=== PATIENT | male | born 1970 | race Hispanic/Latino ===

== ENCOUNTER 2017-05-23 13:27 | Inpatient (IN) | payer OTHER ==
[~2017-05-23] VITALS: Ht 167.6 cm; Wt 89.8 kg
[2017-05-23] MEDS: INSULIN REGULAR, HUMAN 100 UNIT/1 ML 3ML VIAL SQ SCH ×2 (12:30→21:00)
[~2017-05-23 13:27] MED LIST: ASPIR 8181 MG PO; ATORVASTATIN CA20 MG PO; CALCITRIOL0.25 MCG PO; CARTIA XT120 MG PO; FUROSEMIDE40 MG PO; GABAPENTIN300 MG PO; HUMALOG100 UNIT/3 SC; LEVEMIR100 UNIT/1 SC; LISINOPRIL10 MG PO; METOPROLOL TART25 MG PO; NIFEDIPINE ER30 M1 PO; NOVOLOG100 UNITS/ SC; PANTOPRAZOLE SO40 MG PO; PROMETHAZINE HC25 M1 PO; REGLAN10 MG PO; RENVELA0.8 GM PO
--- NOTE | 2017-05-23 14:37 | Diagnostic Imaging Report ---
EXAMINATION: Chest, CHEST 2 VIEWS INDICATION: Cough. Fever. COMPARISON: Chest 2 views 05/02/2017 FINDINGS: LINES: None. Heart: Normal cardiac silhouette. Vascular: The pulmonary vasculature is within normal limits. Atherosclerotic calcifications of the aortic arch. Mediastinum: No mediastinal, hilar, or axillary mass or lymphadenopathy. Lungs: No parenchymal mass. Airspace opacities in the left upper and lower lobes. Pleura: Small left pleural effusion. No pneumothorax. Bones: No acute osseous abnormality. Degenerative changes of the thoracic spine. Median sternotomy wires. Soft tissues: Normal. Impression: Left upper and lower lobe airspace opacifications consistent with pneumonia. Signed by: Dr. Fermin Zuñiga M.D. on 05/23/2017 2:33 PM
[2017-05-23] MEDS ORDERED: AZITHROMYCIN 500MG/NS 250 ML 250 ML IV STA (14:57)
[2017-05-23] MEDS ORDERED: CEFTRIAXONE SOD 1 GM VIAL IV ONE (15:00)
[2017-05-23] MEDS ORDERED: ONDANSETRON HCL INJ 2 MG/ML VIAL IV STA (15:33)
[2017-05-23 15:39] LABS: BASOPHILS # (AUTO) 0.1 (0.0-0.1); BASOPHILS % 0.8 % (0.0-1.0); EOSINOPHILS # (AUTO) 0.2 (0.0-0.4); EOSINOPHILS % 1.7 % (0.0-6.0); HEMATOCRIT 38.9 % (38.2-49.6); HEMOGLOBIN 12.4 g/dL (14.0-18.0); LYMPHOCYTES # (AUTO) 1.1 (1.0-3.2); LYMPHOCYTES % 10.2 % (18.0-39.1); MEAN CORPUSCULAR HEMOGLOBIN 28.6 pg (28-32); MEAN CORPUSCULAR HGB CONC 31.9 g/dL (31-35); MEAN CORPUSCULAR VOLUME 89.6 fL (81-99); MONOCYTES # (AUTO) 0.7 (0.2-0.8); MONOCYTES % 6.4 % (4.4-11.3); NEUTROPHILS # (AUTO) 8.7 (2.1-6.9); NEUTROPHILS % 80.6 % (38.7-80.0); PLATELET COUNT 316 x10e3/uL (140-360); RED BLOOD COUNT 4.34 x10e6/uL (4.3-5.7); RED CELL DISTRIBUTION WIDTH 15.3 % (11.7-14.4)
[2017-05-23 15:53] LABS: ALBUMIN 2.9 g/dL (3.5-5.0); ALBUMIN/GLOBULIN RATIO 0.6 (0.8-2.0); ANION GAP 18.5 mmol/L (8-16); CREATININE, SERUM 8.04 mg/dL (0.72-1.25); POTASSIUM 5.5 mmol/L (3.5-5.1)
[2017-05-23 16:00] LABS: CREATINE KINASE MB 6.4 ng/mL (0.00-5.00); TROPONIN I 0.032 ng/mL (0-0.300)
[2017-05-23] MEDS ORDERED: SOD POLYSTYRENE SULFONATE SUSP 15 GM/60 ML BTL PO ONE (16:15)
[2017-05-23] MEDS ORDERED: AZITHROMYCIN 500MG/SOD CHL 0.9% 250ML BAG IV SCH (16:15)
[2017-05-23] MEDS ORDERED: SODIUM CHLORIDE FLUSH 10 ML SYR INJ PRN (16:15)
[2017-05-23] MEDS: ALBUTEROL SULF 0.083% NEB SOLN 3 ML NEB NEB SCH ×3 (16:15→23:20)
[2017-05-23] MEDS ORDERED: DEXTROSE 50% SYRINGE 50 ML IV PRN (16:30)
[2017-05-23] MEDS: CEFTRIAXONE SOD 1 GM VIAL IV SCH (16:32)
[2017-05-23] MEDS: AZITHROMYCIN 500MG/NS 250 ML 250 ML IV SCH (16:32)
[2017-05-23] MEDS: IPRATROPIUM BROMIDE 0.02% 2.5 ML NEB NEB SCH (17:05)
[2017-05-23] MEDS: ONDANSETRON HCL INJ 2 MG/ML VIAL IV PRN (17:31)
[2017-05-23] MEDS: METOCLOPRAMIDE HCL 10 MG TAB PO SCH (19:57)
[2017-05-23] MEDS: ATORVASTATIN 20 MG TAB PO SCH (19:57)
[2017-05-23] MEDS: METOPROLOL TARTRATE 25 MG TAB PO SCH (19:57)
[2017-05-23] MEDS: ACETAMINOPHEN 325 MG TAB PO PRN (19:58)
[2017-05-23 20:00] VITALS: BP 151/85
[2017-05-24] VITALS (7 sets, daily range): BP systolic 101–137; BP diastolic 59–83
[2017-05-24] MEDS: IPRATROPIUM BROMIDE 0.02% 2.5 ML NEB NEB SCH ×4 (01:00→19:49)
[2017-05-24] MEDS: ALBUTEROL SULF 0.083% NEB SOLN 3 ML NEB NEB SCH ×5 (03:15→19:49)
[2017-05-24] MEDS: ACETAMINOPHEN 325 MG TAB PO PRN (05:55)
[2017-05-24 06:59] LABS: BASOPHILS # (AUTO) 0.1 (0.0-0.1); BASOPHILS % 0.7 % (0.0-1.0); EOSINOPHILS # (AUTO) 0.1 (0.0-0.4); EOSINOPHILS % 0.5 % (0.0-6.0); HEMATOCRIT 35.5 % (38.2-49.6); LYMPHOCYTES # (AUTO) 1.4 (1.0-3.2); LYMPHOCYTES % 12.8 % (18.0-39.1); MEAN CORPUSCULAR HEMOGLOBIN 28.1 pg (28-32); MEAN CORPUSCULAR VOLUME 90.6 fL (81-99); MONOCYTES # (AUTO) 0.7 (0.2-0.8); MONOCYTES % 6.1 % (4.4-11.3); NEUTROPHILS # (AUTO) 8.6 (2.1-6.9); NEUTROPHILS % 79.6 % (38.7-80.0); PLATELET COUNT 298 x10e3/uL (140-360); RED BLOOD COUNT 3.92 x10e6/uL (4.3-5.7); RED CELL DISTRIBUTION WIDTH 15.9 % (11.7-14.4)
[2017-05-24 07:23] LABS: ANION GAP 21.2 mmol/L (8-16); CALCIUM 8.5 mg/dL (8.4-10.2); CREATININE, SERUM 9.47 mg/dL (0.72-1.25); POTASSIUM 5.2 mmol/L (3.5-5.1)
[2017-05-24] MEDS: ASPIRIN 81 MG CHEW TAB PO SCH (08:43)
[2017-05-24] MEDS: METOPROLOL TARTRATE 25 MG TAB PO SCH ×2 (08:43→17:01)
[2017-05-24] MEDS: FUROSEMIDE 40 MG TAB PO SCH (08:43)
[2017-05-24] MEDS: CALCITRIOL 0.25 MCG CAP PO SCH (08:44)
[2017-05-24] MEDS: PANTOPRAZOLE SOD 40 MG TABEC PO SCH (08:44)
[2017-05-24] MEDS: INSULIN REGULAR, HUMAN 100 UNIT/1 ML 3ML VIAL SQ SCH ×4 (08:44→21:00)
[2017-05-24] MEDS: METOCLOPRAMIDE HCL 10 MG TAB PO SCH ×3 (08:44→21:00)
[2017-05-24] MEDS: SEVELAMER CARBONATE 800 MG TAB PO SCH (08:44)
--- NOTE | 2017-05-24 16:48 | Consultation ---
DATE OF CONSULTATION: NEPHROLOGY CONSULTATION REASON FOR CONSULTATION: HD management. HPI: This is a 46-year-old male with end-stage renal disease on HD, type-2 diabetes, hypertension, recent CABG in 2017, who comes in with complaints of cough, congestion, subjective fever, lethargy over the last 2 to 3 days. The patient reports decreased oral intake as well. The patient also has significant lower extremity edema with anasarca. He reports drinking a significant amount of fluids of unknown etiology. He reports his sugars are controlled, and he is not eating any salt intake at home. The patient was admitted to the hospital due to community-acquired pneumonia. The patient was seen and evaluated at bedside on the medical floor, currently doing well. No other complaints. REVIEW OF SYSTEMS: Pertinent positives: Cough, congestion, subjective fever, generalized fatigue and weakness. Pertinent negatives: Denies any chest pain, palpitations, nausea, vomiting, diarrhea, dysuria, hematuria, frequency, urgency, lightheadedness, dizziness, abdominal pain, headache, shortness of breath, or any other complaint. The rest of the 14-point review of systems has been reviewed with the patient and are negative. ALLERGIES: NO KNOWN DRUG ALLERGIES. HOME MEDICATIONS 1. Aspirin 81 mg daily. 2. Lipitor 20 mg daily. 3. Calcitriol 0.25 mg daily. 4. Furosemide 40 mg daily. 5. Levemir 25 units in the morning and 20 units at night. 6. Lisinopril 20 mg daily. 7. Reglan 10 mg p.o. t.i.d. 8. Metoprolol tartrate 25 mg p.o. b.i.d. 9. Protonix 40 mg daily. 10. Renvela 800 mg daily. PAST MEDICAL HISTORY 1. Diabetes. 2. Peripheral neuropathy. 3. Gastroparesis. 4. Hypertension. 5. History of coronary artery disease. SURGICAL HISTORY 1. Appendectomy. 2. Cholecystectomy. 3. CABG in 2017. FAMILY HISTORY: Hypertension, diabetes. SOCIAL HISTORY: Does not smoke. No drugs. No alcohol. Does not work. Good social support. He is . VITAL SIGNS: Temperature 99.9, pulse 109, respiratory rate 18, blood pressure 136/73. His pulse ox is 94%. He is on 3 L nasal cannula. LAB FINDINGS: White count 10.8, hemoglobin 12.4, hematocrit 38.9, platelets 316. Chemistry: Sodium 138, potassium 5.2, chloride 97, bicarb 25, anion gap 21, BUN 66, creatinine 9.4, glucose 148, calcium 8.5, albumin 2.9. Troponin was negative times 1. His flu was negative. Microbiology: Blood cultures are pending. IMAGING STUDIES: Chest x-ray showed left upper and lower air space opacities consistent with pneumonia. PHYSICAL EXAMINATION GENERAL: Not in acute distress. Alert and oriented times 3. Cooperative. HEENT: Head is normocephalic and atraumatic. Eyes: Pupils are equal, round, and reactive to light bilaterally. The extraocular movements are intact bilaterally. NECK: Supple with good range of motion. Throat: No evidence of any erythema or exudate in the posterior pharynx. Has poor dentition. PULMONARY: Clear to auscultation bilaterally. No wheezing. No rales. No rhonchi. No crackles appreciated. CARDIOVASCULAR: Positive S1 and S2. No murmurs, rubs or gallops. ABDOMEN: Soft, nondistended, nontender to palpation. Bowel sounds are present. MUSCULOSKELETAL: Strength is 5/5 throughout. No evidence of any musculoskeletal deficit on exam. SKIN: Intact. Warm to touch. Good cap refill. PSYCHIATRIC: Normal affect and mood. EXTREMITIES: He has 2 to 3+ pedal edema of bilateral upper and lower extremities. Extremities with anasarca. IMPRESSION 1. End-stage renal disease on hemodialysis Wednesday, Wednesday, and Wednesday. 2. Secondary hyperparathyroidism. 3. Anemia of end-stage renal disease. 4. Hospital-acquired pneumonia. PLAN 1. Patient will receive HD today, blood flow rate 400 mL per minute, dialysate flow rate 100 mL per minute, 2 K bath, 2.5 calcium, 3 L ultrafiltration. Duration is 3-1/2 hours. 2. His hemoglobin is within the normal range. 3. Continue with phosphate binders, renal diet, and multivitamin. 4. Renally dose antibiotics for hospital-acquired pneumonia. Job#: [id number]
[2017-05-24] MEDS: HYDROCODONE/APAP 5MG-325MG TAB PO PRN (17:01)
[2017-05-24] MEDS: AZITHROMYCIN 500MG/NS 250 ML 250 ML IV SCH (18:16)
[2017-05-24] MEDS: CEFTRIAXONE SOD 1 GM VIAL IV SCH (18:16)
[2017-05-24] MEDS: ATORVASTATIN 20 MG TAB PO SCH (21:00)
[2017-05-24] MEDS: ONDANSETRON HCL INJ 2 MG/ML VIAL IV PRN (22:15)
[2017-05-24] MEDS ORDERED: SODIUM CHLORIDE 0.9% 1000ML 1,000 ML ONE (23:03)
[2017-05-25] MEDS: ALBUTEROL SULF 0.083% NEB SOLN 3 ML NEB NEB SCH ×7 (00:12→19:35)
[2017-05-25] MEDS: IPRATROPIUM BROMIDE 0.02% 2.5 ML NEB NEB SCH ×4 (00:12→19:35)
[2017-05-25 00:44] VITALS: BP 155/90
[2017-05-25 05:56] VITALS: BP 122/75
[2017-05-25] MEDS: INSULIN REGULAR, HUMAN 100 UNIT/1 ML 3ML VIAL SQ SCH ×4 (07:30→21:00)
[2017-05-25 08:26] VITALS: BP 154/78
[2017-05-25] MEDS: METOCLOPRAMIDE HCL 10 MG TAB PO SCH ×3 (09:00→20:59)
[2017-05-25] MEDS: CALCITRIOL 0.25 MCG CAP PO SCH (09:00)
[2017-05-25] MEDS: ASPIRIN 81 MG CHEW TAB PO SCH (09:00)
[2017-05-25] MEDS: FUROSEMIDE 40 MG TAB PO SCH (09:00)
[2017-05-25] MEDS: SEVELAMER CARBONATE 800 MG TAB PO SCH (09:00)
[2017-05-25] MEDS: PANTOPRAZOLE SOD 40 MG TABEC PO SCH (09:00)
[2017-05-25] MEDS: METOPROLOL TARTRATE 25 MG TAB PO SCH ×2 (09:00→17:00)
[2017-05-25 13:02] VITALS: BP 146/77
[2017-05-25 16:00] VITALS: BP 151/83
[2017-05-25] MEDS ORDERED: SODIUM CHLORIDE 0.9% 250ML 250 ML ONE (16:05)
[2017-05-25] MEDS: CEFTRIAXONE SOD 1 GM VIAL IV SCH (16:15)
[2017-05-25] MEDS: AZITHROMYCIN 500MG/NS 250 ML 250 ML IV SCH (16:30)
[2017-05-25 20:28] VITALS: BP 131/98
[2017-05-25] MEDS: ATORVASTATIN 20 MG TAB PO SCH (20:59)
[2017-05-26] MEDS: HYDROCODONE/APAP 5MG-325MG TAB PO PRN ×3 (00:50→23:05)
[2017-05-26 01:14] VITALS: BP 123/72
[2017-05-26] MEDS: ALBUTEROL SULF 0.083% NEB SOLN 3 ML NEB NEB SCH ×6 (04:05→23:55)
[2017-05-26] MEDS: IPRATROPIUM BROMIDE 0.02% 2.5 ML NEB NEB SCH ×4 (04:05→20:35)
[2017-05-26 05:49] VITALS: BP 171/78
[2017-05-26 06:55] LABS: BASOPHILS # (AUTO) 0.1 (0.0-0.1); EOSINOPHILS # (AUTO) 0.2 (0.0-0.4); EOSINOPHILS % 3.9 % (0.0-6.0); HEMATOCRIT 31.6 % (38.2-49.6); LYMPHOCYTES % 20.6 % (18.0-39.1); MEAN CORPUSCULAR HEMOGLOBIN 28.1 pg (28-32); MEAN CORPUSCULAR HGB CONC 31.6 g/dL (31-35); MEAN CORPUSCULAR VOLUME 88.8 fL (81-99); MONOCYTES # (AUTO) 0.5 (0.2-0.8); MONOCYTES % 9.6 % (4.4-11.3); NEUTROPHILS # (AUTO) 3.2 (2.1-6.9); NEUTROPHILS % 64.7 % (38.7-80.0); PLATELET COUNT 241 x10e3/uL (140-360); RED BLOOD COUNT 3.56 x10e6/uL (4.3-5.7); RED CELL DISTRIBUTION WIDTH 14.9 % (11.7-14.4)
--- NOTE | 2017-05-26 07:00 | Diagnostic Imaging Report ---
CHEST 2 VIEWS, Technique: CHEST 2 VIEWS Comparison: 05/23/2017 Clinical history: Pulmonary infiltrate DISCUSSION: Limited portable view with motion artifact. Impression: 1. Stable mildly enlarged cardiac silhouette post sternotomy. 2. Central vascular congestion with persistent bibasilar atelectasis and small left effusion. Infection not excluded in the proper clinical context. Signed by: Dr Melva Rao MD on 05/26/2017 6:56 AM
[2017-05-26 07:21] LABS: ANION GAP 19.4 mmol/L (8-16); CALCIUM 8.3 mg/dL (8.4-10.2); CREATININE, SERUM 8.62 mg/dL (0.72-1.25); POTASSIUM 5.4 mmol/L (3.5-5.1)
[2017-05-26] MEDS: INSULIN REGULAR, HUMAN 100 UNIT/1 ML 3ML VIAL SQ SCH ×5 (07:30→21:00)
[2017-05-26 08:00] VITALS: BP 131/91
[2017-05-26] MEDS: METOPROLOL TARTRATE 25 MG TAB PO SCH ×2 (08:49→17:44)
[2017-05-26] MEDS: FUROSEMIDE 40 MG TAB PO SCH (08:49)
[2017-05-26] MEDS: ASPIRIN 81 MG CHEW TAB PO SCH (08:49)
[2017-05-26] MEDS: METOCLOPRAMIDE HCL 10 MG TAB PO SCH ×3 (08:52→22:11)
[2017-05-26] MEDS: PANTOPRAZOLE SOD 40 MG TABEC PO SCH (08:52)
[2017-05-26] MEDS: SEVELAMER CARBONATE 800 MG TAB PO SCH (08:52)
[2017-05-26] MEDS: CALCITRIOL 0.25 MCG CAP PO SCH (08:52)
[2017-05-26] MEDS ORDERED: SODIUM CHLORIDE 0.9% 1000ML 2,000 ML ONE (11:24)
[2017-05-26 12:00] VITALS: BP 166/90
[2017-05-26] MEDS: HYDRALAZINE HCL 20 MG/ML VIAL IV PRN (14:02)
[2017-05-26] MEDS ORDERED: MANNITOL 25% 12.5GM/50 ML VIAL IV PRN (14:30)
[2017-05-26] MEDS ORDERED: SODIUM CHLORIDE 0.9% 250ML 500 ML IV PRN (14:30)
[2017-05-26] MEDS ORDERED: SODIUM CHLORIDE 0.9% 1000ML 2,000 ML IV PRN (14:30)
[2017-05-26] MEDS ORDERED: ALBUMIN HUMAN 12.5GM / 50ML IV PRN (14:30)
[2017-05-26] MEDS: CEFTRIAXONE SOD 1 GM VIAL IV SCH (15:40)
[2017-05-26] MEDS: AZITHROMYCIN 500MG/NS 250 ML 250 ML IV SCH (15:40)
[2017-05-26] MEDS: ONDANSETRON HCL INJ 2 MG/ML VIAL IV PRN ×2 (15:43→23:04)
[2017-05-26 16:00] VITALS: BP 142/82
[2017-05-26 20:00] VITALS: BP 165/77
[2017-05-26] MEDS: ATORVASTATIN 20 MG TAB PO SCH (22:11)
[2017-05-27] VITALS: BP 179/86
[2017-05-27] MEDS: HYDRALAZINE HCL 20 MG/ML VIAL IV PRN (02:10)
[2017-05-27] MEDS: ONDANSETRON HCL INJ 2 MG/ML VIAL IV PRN ×2 (03:07→09:34)
[2017-05-27 04:00] VITALS: BP 183/90
[2017-05-27] MEDS ORDERED: PROMETHAZINE HCL 25 MG SUPP PR PRN (04:00)
--- NOTE | 2017-05-27 04:40 | Diagnostic Imaging Report ---
NECK SOFT TISSUE Comparison: None Clinical history: \S\feels like something stuck in his throat \S\Y Findings: Normal prevertebral soft tissues. Airway appears patent. No radiopaque foreign body is seen. Partially imaged median sternotomy wires, the superior one broken. Visualized bones are unremarkable. Impression: No radiopaque foreign body. Signed by: Dr Melva Rao MD on 05/27/2017 4:36 AM
[2017-05-27] MEDS: HYDROCODONE/APAP 5MG-325MG TAB PO PRN ×2 (05:17→15:31)
[2017-05-27] MEDS: ALBUTEROL SULF 0.083% NEB SOLN 3 ML NEB NEB SCH ×5 (07:00→23:00)
[2017-05-27] MEDS: IPRATROPIUM BROMIDE 0.02% 2.5 ML NEB NEB SCH ×3 (07:00→20:15)
[2017-05-27 07:55] VITALS: BP 173/83
[2017-05-27] MEDS: ASPIRIN 81 MG CHEW TAB PO SCH ×2 (09:00→18:21)
[2017-05-27] MEDS: METOPROLOL TARTRATE 25 MG TAB PO SCH ×2 (09:00→18:20)
[2017-05-27] MEDS: LISINOPRIL 20 MG TAB PO SCH ×2 (09:00→18:22)
[2017-05-27] MEDS: SEVELAMER CARBONATE 800 MG TAB PO SCH ×2 (09:00→18:21)
[2017-05-27] MEDS: METOCLOPRAMIDE HCL 10 MG TAB PO SCH ×3 (09:00→21:58)
[2017-05-27] MEDS: PANTOPRAZOLE SOD 40 MG TABEC PO SCH ×2 (09:00→18:21)
[2017-05-27] MEDS: CALCITRIOL 0.25 MCG CAP PO SCH ×2 (09:00→18:21)
[2017-05-27] MEDS: FUROSEMIDE 40 MG TAB PO SCH ×2 (09:00→18:21)
[2017-05-27] MEDS: INSULIN REGULAR, HUMAN 100 UNIT/1 ML 3ML VIAL SQ SCH ×4 (09:08→21:00)
[2017-05-27 09:28] LABS: AMYLASE 84 U/L (25-125); LIPASE 15 U/L (8-78)
[2017-05-27 11:22] VITALS: BP 134/63
--- NOTE | 2017-05-27 18:17 | Diagnostic Imaging Report ---
PROCEDURE:ABDOMEN COMP INCL UPR OR DECUB INDICATION:Pneumonia COMPARISON:Chest radiograph 05/26/2017 FINDINGS: No abnormally distended air-filled loops of small or large bowel. Normal amount of stool in the colon. No radiographically apparent free air. No calcifications overlie the renal silhouettes. Two calcifications in the right pelvis likely represent phleboliths. Cholecystectomy clips project over the right upper quadrant. Two sue project over the pelvis. Small left pleural effusion. Osseous structures are grossly intact. Median sternotomy wires. CONCLUSION: Non-obstructive bowel gas pattern. Dictated by: Tank Collins M.D. on 05/27/2017 at 18:25 Electronically approved by: Tank Collins M.D. on 05/27/2017 at 18:25
[2017-05-27] MEDS: AZITHROMYCIN 500MG/NS 250 ML 250 ML IV SCH (18:20)
[2017-05-27] MEDS: CEFTRIAXONE SOD 1 GM VIAL IV SCH (18:20)
[2017-05-27] MEDS: ATORVASTATIN 20 MG TAB PO SCH (18:20)
[2017-05-27 20:00] VITALS: BP 165/96
[2017-05-28] VITALS: BP 165/87
[2017-05-28] MEDS: IPRATROPIUM BROMIDE 0.02% 2.5 ML NEB NEB SCH ×5 (01:00→19:00)
[2017-05-28] MEDS: ALBUTEROL SULF 0.083% NEB SOLN 3 ML NEB NEB SCH ×5 (03:00→19:00)
[2017-05-28 04:00] VITALS: BP 141/75
[2017-05-28 07:19] LABS: BASOPHILS # (AUTO) 0.1 (0.0-0.1); BASOPHILS % 1.2 % (0.0-1.0); EOSINOPHILS # (AUTO) 0.2 (0.0-0.4); EOSINOPHILS % 4.4 % (0.0-6.0); HEMATOCRIT 34.5 % (38.2-49.6); HEMOGLOBIN 10.8 g/dL (14.0-18.0); LYMPHOCYTES # (AUTO) 1.1 (1.0-3.2); LYMPHOCYTES % 21.6 % (18.0-39.1); MEAN CORPUSCULAR HEMOGLOBIN 27.6 pg (28-32); MEAN CORPUSCULAR HGB CONC 31.3 g/dL (31-35); MONOCYTES # (AUTO) 0.6 (0.2-0.8); MONOCYTES % 11.9 % (4.4-11.3); NEUTROPHILS % 60.7 % (38.7-80.0); PLATELET COUNT 266 x10e3/uL (140-360); RED BLOOD COUNT 3.92 x10e6/uL (4.3-5.7); RED CELL DISTRIBUTION WIDTH 14.6 % (11.7-14.4)
[2017-05-28] MEDS ORDERED: PANTOPRAZOLE SOD 40 MG TABEC PO SCH (07:30)
[2017-05-28] MEDS: INSULIN REGULAR, HUMAN 100 UNIT/1 ML 3ML VIAL SQ SCH ×3 (07:30→16:30)
[2017-05-28 07:44] LABS: ALBUMIN 2.6 g/dL (3.5-5.0); ALBUMIN/GLOBULIN RATIO 0.6 (0.8-2.0); ANION GAP 21.2 mmol/L (8-16); CALCIUM 8.7 mg/dL (8.4-10.2); CREATININE, SERUM 8.59 mg/dL (0.72-1.25); POTASSIUM 5.2 mmol/L (3.5-5.1)
[2017-05-28 07:58] VITALS: BP 172/106
[2017-05-28] MEDS: METOCLOPRAMIDE HCL 10 MG TAB PO SCH ×5 (08:07→17:55)
[2017-05-28] MEDS: METOPROLOL TARTRATE 25 MG TAB PO SCH ×2 (09:00→17:56)
[2017-05-28] MEDS: ACETAMINOPHEN 325 MG TAB PO PRN (10:55)
[2017-05-28 11:49] VITALS: BP 169/95
--- NOTE | 2017-05-28 14:10 | Diagnostic Imaging Report ---
PROCEDURE: Frontal and lateral views of the chest. COMPARISON: [facility], , CHEST 2 VIEWS, 05/23/2017, 14:00. INDICATIONS: PNEUMONIA FINDINGS: Lines/tubes: None. Lungs: The lungs are well inflated. Interval improvement in the previously visualized airspace opacity in the left upper lobe/lingula against the major fissure. Pleura: There is no pleural effusion or pneumothorax. Heart and mediastinum: The heart and the mediastinum are normal. Bones: No acute bony abnormalities. Midline sternotomy wires. IMPRESSION: 1. interval improvement in previously visualized left upper lobe/lingular pneumonia. Recommend followup chest, PA and lateral in 4-6 weeks to document complete resolution. Efra Barnes M.D. Dictated by: Efra Barnes M.D. on 05/28/2017 at 14:19 Electronically approved by: Efra Barnes M.D. on 05/28/2017 at 14:19
[2017-05-28 15:57] VITALS: BP 163/108
[2017-05-28] MEDS: AZITHROMYCIN 500MG/NS 250 ML 250 ML IV SCH (16:30)
--- NOTE | 2017-05-28 17:18 | Discharge Summary ---
The patient was hospitalized with acute pneumonia. He required hospitalization. See emergency room notes also. Database was obtained and monitored. The patient was treated empirically with antibiotics. He continued on diabetic care, insulin, antihypertensives. He continued with hemodialysis. Course was complicated by transient severe nausea and vomiting, which improved prior to discharge. Blood pressure was labile while here. The patient also had intermittent right-sided chest discomfort, which resolved. He was kindly followed by his digital marketing specialist and stonemason apprentice, see notes. Meds were adjusted serially as needed regarding his blood pressure. See also serial laboratory and imaging studies per electronic medical record. These were daily reviewed. May 23 potassium was 5.5, creatinine 8.04, glucose 141. Troponin I was 0.32. Followup amylase and lipase were normal. Blood sugars were monitored and controlled with insulin while here. Admission white count was elevated at 10,830 and platelets 316,000. Admission hemoglobin 12.4. Hepatitis serology was negative. Blood cultures were negative times 2. Admission chest x-ray on May 23: Left upper and lower lobe pneumonia. Prior median sternotomy. Atherosclerotic calcifications in aortic arch. May 26 followup chest x-ray: Central vascular congestion with basilar atelectasis and left effusion, small. Infection not excluded. X-rays of soft tissues of the neck were negative. KUB was negative. Followup chest x-ray May 28: Improved pneumonia. Followup chest x-ray recommended in 4 to 6 weeks to document complete resolution. Patient was counseled regarding the findings and recommendations. He was counseled regarding post discharge med recommendations. He will continue transiently cephalosporins. He has had 5 days of azithromycin here. Prognosis remains guarded as he has had multiple recent readmissions. FINAL IMPRESSION 1. Community-acquired pneumonia. 2. Chronically ill gentleman with diabetes mellitus. 3. End-stage renal disease with diabetic nephropathy. 4. Primary hypertension. 5. Hyperlipoproteinemia. 6. Coronary artery disease post recent bypass. 7. Diabetic gastropathy with recurrent nausea and vomiting. 8. History of gastritis. 9. Peripheral neuropathy. LUCRETIA SILVER MD Job#: [id number]
[2017-05-28] MEDS: CALCITRIOL 0.25 MCG CAP PO SCH (17:55)
[2017-05-28] MEDS: ASPIRIN 81 MG CHEW TAB PO SCH (17:55)
[2017-05-28] MEDS: FUROSEMIDE 40 MG TAB PO SCH (17:55)
[2017-05-28] MEDS: SEVELAMER CARBONATE 800 MG TAB PO SCH (17:55)
[2017-05-28] MEDS: CEFTRIAXONE SOD 1 GM VIAL IV SCH (17:55)
[2017-05-28] MEDS ORDERED: CEFTIN250 MG/5 M PO (19:15)
== END 2017-05-28 19:59 | disposition home or self-care (01) | DRG 193 ==
LOC: ER 13:27 → ERHOLD 16:24 → MED/SURG3 18:08
PROVIDERS: ADMIT Internal Medicine; ATTEND Internal Medicine
PROC: 5A1D70Z Performance of Urinary Filtration, Intermittent, Less than 6 Hours Per Day (ICD-10-PCS; principal; 2017-05-24)
DX: J18.9 Pneumonia, unspecified organism (principal); N18.6 End stage renal disease; E11.22 Type 2 diabetes mellitus with diabetic chronic kidney disease; I12.0 Hypertensive chronic kidney disease with stage 5 chronic kidney disease or end stage renal disease; K31.84 Gastroparesis; E11.43 Type 2 diabetes mellitus with diabetic autonomic (poly)neuropathy; E87.5 Hyperkalemia; Z99.2 Dependence on renal dialysis; E78.5 Hyperlipidemia, unspecified; I25.10 Atherosclerotic heart disease of native coronary artery without angina pectoris; Z95.1 Presence of aortocoronary bypass graft; Z79.4 Long term (current) use of insulin; K29.70 Gastritis, unspecified, without bleeding; K31.9 Disease of stomach and duodenum, unspecified; E21.3 Hyperparathyroidism, unspecified; D63.1 Anemia in chronic kidney disease; Y95 Nosocomial condition; M89.8X9 Other specified disorders of bone, unspecified site
CPT/HCPCS: 36415; 70360; 71020; 74020; 80048; 80053; 82150; 82550; 82553; 82948; 83605; 83690; 84484; 85025; 86704; 86707; 87040; 87350; 87400; 90962; 93005; 94640; 96372; 96374; 99284; J0360; J0456; J0696; J2405; J7030; J7050

== ENCOUNTER 2017-07-07 20:50 | Emergency (ER) | payer MEDICARE ==
[~2017-07-07] VITALS: Ht 167.6 cm; Wt 89.8 kg
[~2017-07-07 20:50] MED LIST changes: +CEFTIN250 MG/5 M PO
[2017-07-07 22:42] LABS: BASOPHILS # (AUTO) 0.1 (0.0-0.1); BASOPHILS % 1.6 % (0.0-1.0); EOSINOPHILS # (AUTO) 0.2 (0.0-0.4); EOSINOPHILS % 3.5 % (0.0-6.0); HEMATOCRIT 39.8 % (38.2-49.6); LYMPHOCYTES # (AUTO) 1.3 (1.0-3.2); LYMPHOCYTES % 19.8 % (18.0-39.1); MEAN CORPUSCULAR HEMOGLOBIN 28.3 pg (28-32); MEAN CORPUSCULAR HGB CONC 32.7 g/dL (31-35); MEAN CORPUSCULAR VOLUME 86.5 fL (81-99); MONOCYTES # (AUTO) 0.8 (0.2-0.8); MONOCYTES % 12.3 % (4.4-11.3); NEUTROPHILS % 62.5 % (38.7-80.0); PLATELET COUNT 322 x10e3/uL (140-360)
[2017-07-07 22:51] LABS: INR 0.88; PROTHROMBIN TIME 12.4 seconds (11.9-14.5)
[2017-07-07 22:52] LABS: PARTIAL THROMBOPLASTIN TIME 32.9 seconds (23.8-35.5)
--- NOTE | 2017-07-07 22:56 | Diagnostic Imaging Report ---
CHEST 2 VIEWS, Technique: CHEST 2 VIEWS Comparison: 05/26/2017 Clinical history: Chest pain with inspiration DISCUSSION: Heart/mediastinum: Stable borderline cardiomegaly poststernotomy. Lungs/pleural spaces: Low lung volumes with mild left basilar reticular opacity. Trace left pleural effusion or thickening. IMPRESSION: Trace left pleural effusion/thickening with left basilar atelectasis/scarring. Signed by: Dr Melva Rao MD on 07/07/2017 10:53 PM
[2017-07-07 22:59] LABS: ALBUMIN 3.2 g/dL (3.5-5.0); ALBUMIN/GLOBULIN RATIO 0.6 (0.8-2.0); ANION GAP 17.4 mmol/L (8-16); CALCIUM 8.7 mg/dL (8.4-10.2); CREATININE, SERUM 6.18 mg/dL (0.72-1.25); POTASSIUM 5.4 mmol/L (3.5-5.1)
[2017-07-07 23:06] LABS: CREATINE KINASE MB 3.3 ng/mL (0.00-5.00); TROPONIN I 0.024 ng/mL (0-0.300)
--- NOTE | 2017-07-08 02:49 | Diagnostic Imaging Report ---
EXAM: VQ LUNG SCAN VENT PERFUSION DATE: 07/07/2017 12:00 AM INDICATION: Evaluate for pulmonary embolism, chest pain with inspiration COMPARISON: None FINDINGS: Xenon-133 gas 10 mCi was administered via inhalation. Dynamic images of the lungs in the posterior projection were obtained through single breath and washout phases. Distribution of tracer activity Is minimally irregular throughout the lungs. Washout is diffusely delayed. Perfusion images of the lungs in multiple projections were obtained following intravenous administration of 6 mCi of Tc-99m MAA. Distribution of tracer Minimally irregular throughout the lungs. There are no segmental perfusion defects or mismatches to the ventilation images. The cardiac silhouette is mildly enlarged. IMPRESSION: 1. Scan findings represent a LOW probability for acute pulmonary embolic disease based on the PIOPED II criteria. Signed by: Dr Melva Rao MD on 07/08/2017 6:56 AM
[2017-07-08 03:14] VITALS: BP 153/84
== END 2017-07-08 03:36 | disposition home or self-care (01) ==
LOC: ER 20:50
DX: R07.89 Other chest pain (principal); R09.1 Pleurisy; J90 Pleural effusion, not elsewhere classified; I12.0 Hypertensive chronic kidney disease with stage 5 chronic kidney disease or end stage renal disease; N18.6 End stage renal disease; Z99.2 Dependence on renal dialysis; Z95.1 Presence of aortocoronary bypass graft
CPT/HCPCS: 36415; 71020; 78582; 80053; 82550; 82553; 84132; 84484; 85025; 85379; 85610; 85730; 93005; 99284

== ENCOUNTER 2017-08-30 00:45 | Inpatient (IN) | payer MEDICARE ==
[~2017-08-30] VITALS: Ht 167.6 cm; Wt 84.8 kg
--- OUTSIDE RECORDS SUMMARY | 2017-08-30 00:48 | XMS REPORT ---
Author Author [facility] Address Unknown Phone Unavailable Care Team Providers Care Finishing Lab Technician Name Role Phone CATHY SIMENTAL Unavailable Unavailable LUCRETIA SILVER Unavailable Unavailable SWEET, LAIRD Unavailable Unavailable Problems This patient has no known problems. Allergies, Adverse Reactions, Alerts This patient has no known allergies or adverse reactions. Medications This patient has no known medications. Results Test Description Test Time Test Comments Text Results Atomic Results Result Comments CHEST 2 VIEWS [place] [address] Patient Name: ERIC THOMAS MR #: [id number] : 1970 Age/Sex: 46/M Req # : [id number] Adm Physician: Ordered by: CATHY SIMENTAL MD Report # : [id number] Location: ER Room/Bed: Procedure: [id number] DX/CHEST 2 VIEWS Exam Date: 07/07/17 Exam Time : 2216 REPORT STATUS: Signed CHEST 2 VIEWS, Technique: CHEST 2 VIEWS Comparison: 05/26/2017 Clinical history: Chest pain with inspiration DISCUSSION: Heart/mediastinum: Stable borderline cardiomegaly poststernotomy. Lungs/pleural spaces: Low lung volumes with mild left basilar reticular opacity. Trace left pleural effusion or thickening. IMPRESSION: Trace left pleural effusion/thickening with left basilar atelectasis/scarring. Signed by: Dr Shorty Alaniz MD on 07/07/2017 10:53 PM Dictated By: SHORTY ALANIZ MD 52 Transcribed By: KELBY on 07/07/172252 COPY TO: CATHY SIMENTAL MD VQ LUNG SCAN VENT PERFUSION [place] [address] Patient Name: ERIC THOMAS MR #: [id number] : 1970 Age/Sex: 46/M Req #: [id number] Adm Physician: Ordered by: CATHY SIMENTAL MD Report #: [id number] Location: ER Room/Bed: ___ Procedure: [id number] NM/VQ LUNG SCAN VENT PERFUSION Exam Date: Exam Time: REPORT STATUS: Signed EXAM: VQ LUNG SCAN VENT PERFUSION DATE: 07/07/2017 12:00 AM INDICATION: Evaluate for pulmonary embolism, chest pain with inspiration COMPARISON: None FINDINGS: Xenon-133 gas 10 mCi was administered via inhalation. Dynamic images of the lungs in the posterior projection were obtained through single breath and washout phases. Distribution of tracer activity Is minimally irregular throughout the lungs. Washout is diffusely delayed. Perfusion images of the lungs in multiple projections were obtained following intravenous administration of 6 mCi of Tc-99m MAA. Distribution of tracer Minimally irregular throughout the lungs. There are no segmental perfusion defects or mismatches to the ventilation images. The cardiac silhouette is mildly enlarged. IMPRESSION: 1. Scan findings represent a LOW probability for acute pulmonary embolic disease based on the PIOPED II criteria. Signed by: Dr Shorty Alaniz MD on 07/08/2017 6:56 AM Dictated By: SHORTY ALANIZ MD 0656 Transcribed By: KELBY on 07/08/1756 COPY TO: CATHY SIMENTAL MD CHEST 2 VIEWS [place] [address] Patient Name: ERIC THOMAS MR #: [id number] : 1970 Age/Sex: 46/M Req # : [id number] Adm Physician: LUCRETIA SILVER MD Ordered by: LUCRETIA SILVER MD Report #: [id number] Location: MED/SURG3 Room/Bed: [facility] Procedure: [id number] DX/CHEST 2 VIEWS Exam Date: 05/28/17 Exam Time: 1310 REPORT STATUS: Signed PROCEDURE: Frontal and lateral views of the chest. COMPARISON: [facility], DX, CHEST 2 VIEWS, 05/23/2017, 14:00. INDICATIONS: PNEUMONIA FINDINGS: Lines/tubes: None. Lungs: The lungs are well inflated. Interval improvement in the previously visualized airspace opacity in the left upper lobe/lingula against the major fissure. Pleura: There is no pleural effusion or pneumothorax. Heart and mediastinum: The heart and the mediastinum are normal. Bones: No acute bony abnormalities. Midline sternotomy wires. IMPRESSION: 1. interval improvement in previously visualized left upper lobe/lingular pneumonia. Recommend followup chest, PA and lateral in 4-6 weeks to document complete resolution. Efra Alex M.D. Dictated by: Efra Alex M.D. on 2016 at 14:19 Electronically approved by: Efra Alex M.D. on at 14:19 Dictated By: EFRA ALEX MD 18 Transcribed By: MARY on 05/28/171418 COPY TO: LUCRETIA SILVER MD ABDOMEN COMP INCL UPR or DECUB [place] [address] Patient Name: ERIC THOMAS MR #: [id number] : 1970 Age/Sex: 46/M Req #: [id number] Adm Physician: LUCRETIA SILVER MD Ordered by: LUCRETIA SILVER MD Report #: [id number] Location: MED/SURG3 Room/Bed: [facility] Procedure: [id number] DX/ABDOMEN COMP INCL UPR or DECUB Exam Date: 05/27/17 Exam Time: 1750 REPORT STATUS: Signed PROCEDURE: ABDOMEN COMP INCL UPR OR DECUB INDICATION: Pneumonia COMPARISON: Chest radiograph 05/26/2017 FINDINGS: No abnormally distended air-filled loops of small or large bowel. Normal amount of stool in the colon. No radiographically apparent free air. No calcifications overlie the renal silhouettes. Two calcifications in the right pelvis likely represent phleboliths. Cholecystectomy clips project over the right upper quadrant. Two sue project over the pelvis. Small left pleural effusion. Osseous structures are grossly intact. Median sternotomy wires. CONCLUSION: Non-obstructive bowel gas pattern. Dictated by: Tank Smith M.D. on 05/27/2017 at 18: 25 Electronically approved by: Tank Smith M.D. on 05/27/2017 at 18: 25 Dictated By: TANK SMITH MD 24 Transcribed By: MARY on 05/27/171824 COPY TO: LUCRETIA SILVER MD NECK SOFT TISSUE [place] [id number] [place] [address] Patient Name: ERIC THOMAS MR #: [id number] : 1970 Age/Sex: 46/M Req # : [id number] Adm Physician: LUCRETIA SILVER MD Ordered by: LUCRETIA SILVER MD Report #: [id number] Location: MED/SURG3 Room/Bed: [facility] Procedure: [id number] DX/NECK SOFT TISSUE Exam Date: 05/27/17 Exam Time: 356 REPORT STATUS: Signed NECK SOFT TISSUE Comparison: None Clinical history: S feels like something stuck in his throat S Y Findings: Normal prevertebral soft tissues. Airway appears patent. No radiopaque foreign body is seen. Partially imaged median sternotomy wires, the superior one broken. Visualized bones are unremarkable. Impression: No radiopaque foreign body. Signed by: Dr Shorty Alaniz MD on 05/27/2017 4:36 AM Dictated By: SHORTY ALANIZ MD 5 Transcribed By: KELBY on 05/27/17435 COPY TO: LUCRETIA SILVER MD CHEST 2 VIEWS [place] [address] Patient Name: ERIC THOMAS MR #: [id number] : 1970 Age/Sex: 46/M Req # : [id number] Adm Physician: LUCRETIA SILVER MD Ordered by: LUCRETIA SILVER MD Report #: [id number] Location: MED/SURG3 Room/Bed: 295-1 Procedure: [id number] DX/CHEST 2 VIEWS Exam Date: Exam Time: REPORT STATUS: Signed CHEST 2 VIEWS, Technique: CHEST 2 VIEWS Comparison: 05/23/2017 Clinical history: Pulmonary infiltrate DISCUSSION: Limited portable view with motion artifact. Impression: 1. Stable mildly enlarged cardiac silhouette post sternotomy. 2. Central vascular congestion with persistent bibasilar atelectasis and small left effusion. Infection not excluded in the proper clinical context. Signed by: Dr Shorty Alaniz MD on 05/26/2017 6:56 AM Dictated By: SHORTY ALANIZ MD 5 Transcribed By: KELBY on 05/26/17655 COPY TO: LUCRETIA SILVER MD CHEST 2 VIEWS [place] [address] Patient Name: ERIC THOMAS MR #: [id number] : 1970 Age/Sex: 46/M Req # : [id number] Adm Physician: Ordered by: ARMANDO MCCARTHY Report #: [id number] Location: ER Room/Bed: Procedure: [id number] DX/CHEST 2 VIEWS Exam Date: 05/23/17 Exam Time : 1430 REPORT STATUS: Signed EXAMINATION: Chest, CHEST 2 VIEWS INDICATION: Cough. Fever. COMPARISON: Chest 2 views 05/02/2017 FINDINGS: LINES: None. Heart: Normal cardiac silhouette. Vascular: The pulmonary vasculature is within normal limits. Atherosclerotic calcifications of the aortic arch. Mediastinum: No mediastinal, hilar, or axillary mass or lymphadenopathy. Lungs: No parenchymal mass. Airspace opacities in the left upper and lower lobes. Pleura: Small left pleural effusion. No pneumothorax. Bones: No acute osseous abnormality. Degenerative changes of the thoracic spine. Median sternotomy wires. Soft tissues: Normal. Impression: Left upper and lower lobe airspace opacifications consistent with pneumonia. Signed by: Dr. Caitlin Christine M.D. on 05/23/2017 2:33 PM Dictated By: CAITLIN CHRISTINE MD 1433 Transcribed By: KELBY on 05/23/17 1433 COPY TO: ARMANDO MCCARTHY CT ABDOMEN/PELVIS WO [place] [address] Patient Name: ERIC THOMAS MR #: [id number] : 1970 Age/Sex: 46/M Req #: [id number] Adm Physician: Ordered by: DAVID WONG MD Report #: [id number] Location: ER Room/Bed: Procedure: [id number] CT/CT ABDOMEN/PELVIS WO Exam Date: Exam Time: REPORT STATUS: Signed EXAM: CT ABDOMEN AND PELVIS without IV CONTRAST DATE: 05/08/2017 3:50 AM Time stamp on Exam: 0405 hours INDICATION: Abdominal pain, nausea and vomiting COMPARISON: CT of the abdomen and pelvis May 01, 2017 TECHNIQUE: The abdomen and pelvis were scanned using a multidetector helical scanner. Coronal and sagittal reformations were obtained. Routine protocol performed. IV Contrast: None Oral Contrast: None CTDIvol has been reviewed. It is below the limits set by the Radiation Protocol Committee (RPC). FINDINGS: LOWER THORAX: Left lower lobe atelectasis and small left pleural effusion LIVER: No masses BILIARY: Cholecystectomy SPLEEN: No masses PANCREAS: No masses ADRENALS: No nodules KIDNEYS: Punctate nonobstructing stone in the right kidney. GI TRACT: No distention, wall thickening or evidence of obstruction. VESSELS: No interval change PERITONEUM/RETROPERITONEUM: Trace free fluid in the pelvis. LYMPH NODES: No lymphadenopathy REPRODUCTIVE ORGANS: Unremarkable BLADDER: Unremarkable SOFT TISSUES: Unremarkable BONES: No suspicious bone lesions. IMPRESSION: No acute findings. Signed by: Dr. Lucia Holland M.D. on 05/08/2017 4:45 AM Dictated By: LUCIA HOLLAND MD 4 Transcribed By: KELBY on 05/08/17444 COPY TO: DAVID WONG MD CHEST SINGLE (PORTABLE) [place] [address] Patient Name: ERIC THOMAS MR #: [id number] : 1970 Age/Sex: 46/M Req #: [id number] Adm Physician: Ordered by: DAVID WONG MD Report #: [id number] Location: ER Room/Bed: Procedure: [id number] DX/CHEST SINGLE (PORTABLE) Exam Date: 05/08/17 Exam Time: 0404 REPORT STATUS: Signed EXAM: CHEST SINGLE (PORTABLE), AP 1 view DATE: 05/08/2017 3:50 AM Time stamp on exam: 0404 hours INDICATION: Abdominal pain COMPARISON: AP view of the chest April 30, 2017 FINDINGS: LINES/TUBES: None LUNGS: Left lower lobe atelectasis PLEURA: Small left pleural effusion HEART AND MEDIASTINUM: Mild cardiomegaly. Stable median sternotomy wires. BONES AND SOFT TISSUES: No acute findings. IMPRESSION: Cardiomegaly, left lower lobe atelectasis and small left pleural effusion. Signed by: Dr. Lucia Holland M.D. on 05/08/2017 5:03 AM Dictated By: LUCIA HOLLAND MD 2 Transcribed By: KELBY on 05/08/17502 COPY TO: DAVID WONG MD CHEST 2 VIEWS [place] [address] Patient Name: ERIC THOMAS MR #: [id number] : 1970 Age/Sex: 46/M Req # : [id number] Adm Physician: LUCRETIA SILVER MD Ordered by: LUCRETIA SILVER MD Report #: [id number] Location: [facility] Room/Bed: [facility] Procedure: [id number] DX/CHEST 2 VIEWS Exam Date: 05/02/17 Exam Time: 1300 REPORT STATUS: Signed EXAMINATION: Chest, CHEST 2 VIEWS INDICATION: Chest pain COMPARISON: Portable chest 04/30/2017 FINDINGS: LINES: None. Heart : Normal cardiac silhouette. Vascular: The pulmonary vasculature is within normal limits. Atherosclerotic calcifications of the aortic arch. Mediastinum: No mediastinal, hilar, or axillary mass or lymphadenopathy. Lungs: No parenchymal mass. No focal consolidation. Left lower lobe atelectasis. Pleura: No pleural effusion. No pneumothorax. Bones: No acute osseous abnormality. Degenerative changes of the thoracic spine. Median sternotomy wires. Soft tissues: Normal. Impression: No acute radiographic abnormality. Signed by: Dr. Caitlin Christine M.D. on 2016 1:21 PM Dictated By: CAITLIN CHRISTINE MD 1321 Transcribed By: KELBY on 05/02/17 1321 COPY TO: LUCRETIA SILVER MD CT ABDOMEN/PELVIS WO [place] [address] Patient Name: ERIC THOMAS MR #: [id number] : 1970 Age/Sex: 46/M Req #: [id number] Adm Physician: LUCRETIA SILVER MD Ordered by: BONY BENSON MD Report #: [id number] Location: [place] [address] Room/Bed: [facility] Procedure: [id number] CT/CT ABDOMEN/PELVIS WO Exam Date: 05/01/17 Exam Time: 929 REPORT STATUS: Signed EXAM: CT Abdomen and Pelvis WITHOUT contrast INDICATION: Abdominal pain COMPARISON: CT abdomen and pelvis 04/27/2017 TECHNIQUE: Abdomen and pelvis were scanned utilizing a multidetector helical scanner from the lung base to the pubic symphysis. Coronal and sagittal reformations were obtained. The lack of intravenous contrast limits the evaluation of the solid organs, vasculature, and possible lymphadenopathy. Protocol: General survey without contrast IV CONTRAST: No intravenous contrast was administered as per physician request. ORAL CONTRAST: None. COMPLICATIONS: None. RADIATION DOSE: Total Exam DLP: 759.4 mGy*cm. CTDIvol has been reviewed. It is below the limits set by the Radiation Protocol Committee (RPC) . FINDINGS: LINES: None. Lower thorax: No parenchymal abnormality. No pneumothorax. Small bilateral pleural effusions, left greater than right. Bilateral lower lobe atelectasis. Liver: No focal mass. No hepatomegaly. Normal parenchyma. Gallbladder: Cholecystectomy clips. Biliary tree: No intrahepatic duct dilation. No extrahepatic duct dilation. Spleen: No splenomegaly. No focal mass. Pancreas: No focal mass. Normal pancreatic duct. No peripancreatic inflammatory changes. Kidneys: Punctate calculus is present in the interpolar region of the right kidney, series 2 image 36. No obstructing calculi. No hydronephrosis. No cysts. No perinephric soft tissue inflammatory changes. Adrenal glands: No adrenal nodules.. Bladder: Normal urinary bladder. Pelvic organs: Normal. GI: No bowel wall thickening. No air-fluid levels. The stomach and small bowel are normal. The colon is normal. Appendectomy. A moderate amount of retained feces limits intraluminal evaluation of the colon. Peritoneum/retroperitoneum: No pneumoperitoneum. No ascites. No drainable fluid collection. Lymph nodes: No lymphadenopathy. . Vessels: No focal abnormality. Aortoiliac atherosclerotic calcifications. Limited evaluation. Bones: No focal abnormality. Partially visualized median sternotomy wires. Degenerative changes of the thoracic spine. Soft tissues: No focal abnormality. IMPRESSION: No acute abnormality of the abdomen and pelvis. Nonobstructing right nephrolithiasis. Signed by: Dr. Caitlin Christine M.D. on 05/01/2017 10:48 AM Dictated By: CAITLIN CHRISTINE MD 1048 Transcribed By: KELBY on 05/01/17 1048 COPY TO: BONY BENSON MD CHEST SINGLE (PORTABLE) [place] [address] Patient Name: ERIC THOMAS MR #: [id number] : 1970 Age/Sex: 46/M Req #: [id number] Adm Physician: LUCRETIA SILVER MD Ordered by: LUCRETIA SILVER MD Report #: [id number] Location: MED/SURG3 Room/Bed: [facility] Procedure: DX/CHEST SINGLE (PORTABLE) Exam Date: 04/30/17 Exam Time: 1850 REPORT STATUS: Signed EXAMINATION: CHEST SINGLE (PORTABLE) INDICATION: COMPARISON: Chest radiograph 04/27/2017 FINDINGS: See impression IMPRESSION: 1. Stable mild enlargement of the cardiac silhouette and central vascular congestion. 2. Stable small loculated left pleural effusion with adjacent atelectasis. Signed by: DR. Tank Smith MD on 04/30/2017 7:47 PM Dictated By: TANK SMITH MD 46 Transcribed By: KELBY on 04/30/171946 COPY TO: LUCRETIA SILVER MD CHEST SINGLE (PORTABLE) [place] [address] Patient Name: ERIC THOMAS MR #: [id number] : 1970 Age/Sex: 46/M Req #: [id number] Adm Physician: Ordered by: DAVID WONG MD Report #: [id number] Location: ER Room/Bed: Procedure: [id number] DX/CHEST SINGLE (PORTABLE) Exam Date: 04/27/17 Exam Time: 2227 REPORT STATUS: Signed CHEST SINGLE ( PORTABLE), 04/27/2017 10:11 PM Technique: CHEST SINGLE (PORTABLE) Comparison: 03/03/2017 Clinical history: Fever/end stage renal disease Findings: See Impression Impression: 1. Stable slightly enlarged cardiomediastinal silhouette poststernotomy. 2. Low lung volumes with central vascular congestion. 3. Small loculated left pleural effusion, decreased from prior, with associated atelectasis. Signed by: Dr Shorty Alaniz MD on 12:46 AM Dictated By: SHORTY ALANIZ MD Transcribed By: KELBY on 04/28/1745 COPY TO: DAVID WONG MD CT ABDOMEN/PELVIS WO [place] [address] Patient Name: ERIC THOMAS MR #: [id number] : 1970 Age/Sex: 46/M Req #: [id number] Adm Physician: Ordered by: DAVID WONG MD Report #: [id number] Location: ER Room/Bed: Procedure: [id number] CT/CT ABDOMEN/PELVIS WO Exam Date: 04/27/17 Exam Time: 2226 REPORT STATUS: Signed CT ABDOMEN/PELVIS WO Clinical history: Abdominal pain, vomiting right side Technique: Volumetric CT scan of the abdomen and pelvis was performed. No intravenous or enteric contrast was administered. Coronal, sagittal and axial images are generated from source data. Note that technical issues caused a delay in image transfer and interpretation. Comparison: 01/20/2017 FINDINGS: Lack of IV contrast decreases sensitivity in evaluating abdominal and pelvic organs. LOWER THORAX: Borderline heart size post sternotomy with small pericardial effusion/thickening. Small loculated left pleural effusion with scattered atelectasis. LIVER/BILIARY: No masses. No ductal dilatation. GALLBLADDER: Unremarkable SPLEEN: Unremarkable PANCREAS: Unremarkable ADRENALS: No nodules KIDNEYS: No hydronephrosis. 2 mm bilateral nonobstructing renal calculi versus vascular calcifications. GI TRACT: No evidence of bowel obstruction. Appendix is dilated (9 mm) containing an appendicolith with surrounding inflammatory changes. No periappendiceal abscess. VESSELS: Mild atherosclerotic calcifications. PERITONEUM/ RETROPERITONEUM: No free air or fluid collection LYMPH NODES: No lymphadenopathy REPRODUCTIVE ORGANS/BLADDER: Mild apparent bladder wall thickening which may be related to underdistention. BONES: Grade 1 anterolisthesis of L5 over S1 related to bilateral pars defects with underlying degenerative change. IMPRESSION: Acute appendicitis. No periappendiceal abscess. Discussed with Physician: DAVID WONG MD at 12: 50 AM on 04/28/2017. Signed by: Dr hSorty Alaniz MD on 04/28/2017 12:57 AM Dictated By: SHORTY ALANIZ MD Transcribed By: KELBY on 04/28/1756 COPY TO: DAVID WONG MD CT CHEST W [place] [address] Patient Name: ERIC THOMAS MR #: [id number] : 1970 Age/Sex: 46/M Req # : [id number] Adm Physician: LUCRETIA SILVER MD Ordered by: LUCRETIA SILVER MD Report #: [id number] Location: [facility] Room/Bed: [place] [address] Procedure: [id number] CT/CT CHEST W Exam Date: 03/03/17 Exam Time: 1120 REPORT STATUS: Signed EXAM: CT Chest WITH contrast 03/03/2017 9:34 AM INDICATION: Chest pain. Abnormal chest x-ray. COMPARISON: Correlation with chest PA and lateral views dated 03/03/2017. TECHNIQUE: Chest was scanned utilizing a multidetector helical scanner from the lung apex through the level of the adrenal glands without administration of IV contrast. Coronal and sagittal reformations were obtained. Routine protocol was performed. IV CONTRAST: 100 mL of Isovue-370 RADIATION DOSE: Total DLP: 486.70 mGy*cm Estimated effective dose: (DLP x 0.014 x size factor) mSv COMPLICATIONS: None FINDINGS: LINES/ TUBES: Right neck central venous catheter with distal tip within the low right atrium. LUNGS AND AIRWAYS: Patchy groundglass density throughout the dependent portions of the right lung suggestive of atelectasis. There is also right upper lobe, lingular and left lower lobe subsegmental passive/compressive atelectasis. There is mild prominence of the central pulmonary vasculature suggesting of mild venous congestion. PLEURA: There is a small left pleural effusion which appears loculated. No pneumothorax. HEART AND MEDIASTINUM: Median sternotomy wires and mediastinal clips. The visualized portions of the thyroid are unremarkable. Mildly prominent lymph nodes scattered throughout the mediastinum, the largest measuring 9 mm in short axis on image 27 series 2, lateral to the aortic arch. There is a small volume pericardial effusion. The heart is mildly enlarged. There is evidence of left ventricular hypertrophy with thickening of the interventricular septum. Coronary artery calcifications particularly of the LAD and left circumflex coronary arteries. The main pulmonary artery measures 3.0 cm in diameter, upper limits of normal. Mediastinal lipomatosis. UPPER ABDOMEN: Limited non-contrast views of the upper abdomen show a mildly prominent portal caval lymph node measuring 1.1 cm in short axis on image 19 series 2. Kidneys. The adrenal glands are normal. Heterogeneity of the visualized renal parenchyma bilaterally with a lack of corticomedullary differentiation may be related to phase of contrast enhancement. Mildly nodular hepatic contour with mild prominence of the caudate lobe is nonspecific, possibly early cirrhotic morphology. There is mild periportal edema. BONES: Mid to lower thoracic DISH. Degenerative changes with small osteophytes of the right ninth costovertebral junction. SOFT TISSUES: No acute abnormality. IMPRESSION: 1. Small volume multiloculated left pleural effusion associated with left multilobar subsegmental compressive/passive atelectasis. 2. Mild cardiomegaly with left ventricular hypertrophy. Mild pulmonary venous congestion. Signed by: Dr. Keegan Simon M.D. on 2016 12:42 PM Dictated By: PATRICK SIMON MD, MD 41 Transcribed By: KELBY on 03/03/17 124 COPY TO: LUCRETIA SILVER MD RIBS UNILAT W/CXR [place] [address] Patient Name: ERIC THOMAS MR #: [id number] : 1970 Age/Sex: 46/M Req # : [id number] Adm Physician: LUCRETIA SILVER MD Ordered by: LUCRETIA SILVER MD Report #: [id number] Location: [facility] Room/Bed: [place] [address] Procedure: [id number] DX/RIBS UNILAT W/CXR Exam Date: 03/03/17 Exam Time: 1700 REPORT STATUS: Signed PROCEDURE: X-RAY UNILATERAL RIBS WITH CHEST X-RAY COMPARISON: [facility], DX, CHEST 2 VIEWS, 03/03/2017, 2:37. [facility], CT, CT CHEST W, 03/03/2017, 11:16. INDICATIONS: MID RIGHT RIB/CHEST PAIN FINDINGS: BONES: No acute fracture or dislocation; more specifically, no rib fractures. Median sternotomy wires. Mild degenerative changes of the imaged thoracolumbar spine. Costochondral calcifications. Mild DJD of the right a.c. joint. SOFT TISSUES: Negative. OTHER: Right-sided dual-lumen central venous catheter tip overlies the right atrium. Mildly enlarged cardiac silhouette status post sternotomy. Small partially loculated left pleural effusion with associated opacity. CONCLUSION: No acute osseous abnormality. No displaced rib fracture. Keegan Simon M.D. Dictated by: Keegan Simon M.D. on 03/03/2017 at 18:08 Electronically approved by: Keegan Simon M.D. on 03/03/2017 at 18: 08 Dictated By: PATRICK SIMON MD, MD 07 Transcribed By: MARY on 03/03/171807 COPY TO: LUCRETIA SILVER MD CHEST 2 VIEWS [place] [address] Patient Name: DANIEL THOMAS MR #: [id number] : 1970 Age/Sex: 46/M Req # : [id number] Adm Physician: Ordered by: DAVID WONG MD Report #: [id number] Location: ER Room/Bed: Procedure: [id number] DX/CHEST 2 VIEWS Exam Date: 03/03/17 Exam Time: 249 REPORT STATUS: Signed CHEST 2 VIEWS, Technique: CHEST 2 VIEWS Comparison: None Clinical history: Chest pain DISCUSSION: Right-sided dual-lumen central venous catheter tip overlies the right atrium. Mildly enlarged cardiac silhouette status post sternotomy. Small partially loculated left pleural effusion with associated opacity. IMPRESSION: Small partially loculated left pleural effusion with associated atelectasis or consolidation. Signed by: Dr Shorty Alaniz MD on 03/03/2017 3:03 AM Dictated By: SHORTY ALANIZ MD 0303 Transcribed By: KELBY on 03/03/17302 COPY TO: DAVID WONG MD
--- OUTSIDE RECORDS SUMMARY | 2017-08-30 00:48 | XMS REPORT | Clinical Summary ---
Author Author [facility] Organization [facility] Address Unknown Phone Unavailable Care Team Providers Care Summer Clerk Name Role Phone Asked, Pcp PCP Unavailable Allergies Active Allergy Reactions Severity Noted Date Comments Latex Rash Low 02/15/2017 Current Medications Prescription Sig. Disp. Refills Start End Date Status Date sevelamer (RENVELA) 800 Take 800 mg by mouth 3 Active mg tablet (three) times a day with meals. calcitriol (ROCALTROL) Take 0.25 mcg by mouth Active 0.25 MCG capsule daily. FUROSEMIDE (LASIX ORAL) Take 40 mg by mouth 2 Active (two) times a day. atorvastatin (LIPITOR) 20 Take 20 mg by mouth Active MG tablet nightly. insulin ASPART (NovoLOG) Inject 6 Units under the Active 100 unit/mL injection skin 3 (three) times a day before meals. insulin detemir (LEVEMIR) Inject 25 Units under the Active 100 unit/mL injection skin nightly. insulin detemir (LEVEMIR) Inject 20 Units under the Active 100 unit/mL injection skin daily. diltiazem CD (CardIZEM Take 120 mg by mouth 02/13/20 Discontin CD) 120 MG 24 hr capsule daily. 17 ued lisinopril Take 20 mg by mouth 02/18/20 Discontin (PRINIVIL,ZESTRIL) 20 mg daily. 17 ued tablet insulin detemir (LEVEMIR) Inject 20 Units under the 01/29/20 Discontin 100 unit/mL injection skin daily. 17 ued insulin detemir (LEVEMIR) Inject 25 Units under the 01/29/20 Discontin 100 unit/mL injection skin 2 (two) times a day. 17 ued 25 unit morning and 20 unit at night metoprolol tartrate Take 1 tablet (25 mg 60 tablet 0 02/13/20 (LOPRESSOR) 25 mg tablet total) by mouth 2 (two) 17 17 times a day for 30 days. aspirin (ECOTRIN) 81 MG Take 1 tablet (81 mg 30 tablet 0 02/13/20 enteric coated tablet total) by mouth daily for 17 17 30 days. acetaminophen-codeine Take 1 tablet by mouth 50 tablet 0 02/13/20 (TYLENOL WITH CODEINE #3) every 6 (six) hours as 17 17 300-30 mg per tablet needed for moderate pain for up to 14 days. methylPREDNISolone follow package directions 21 tablet 0 02/18/20 (MEDROL DOSEPAK) 4 mg 17 17 tablet methylPREDNISolone follow package directions 21 tablet 0 02/19/20 (MEDROL DOSEPAK) 4 mg 17 17 tablet methylPREDNISolone follow package directions 21 tablet 0 02/20/20 (MEDROL DOSEPAK) 4 mg 17 17 tablet methylPREDNISolone follow package directions 21 tablet 0 02/18/20 (MEDROL DOSEPAK) 4 mg 17 17 tablet methylPREDNISolone follow package directions 21 tablet 0 02/19/20 (MEDROL DOSEPAK) 4 mg 17 17 tablet Active Problems Problem Noted Date Pleural effusion 02/16/2017 Chest pain 02/14/2017 S/P CABG (coronary artery bypass graft) 02/02/2017 Postoperative anemia due to acute blood loss 02/01/2017 Acute respiratory insufficiency, postoperative 02/01/2017 ESRD (end stage renal disease) 02/01/2017 CAD (coronary artery disease) 01/28/2017 Type 2 diabetes mellitus 06/14/1997 Panarteritis Diabetic neuropathy Hyperlipidemia Hypertension Anemia Encounters Date Type Specialty Care Team Description 05/28/2017 Telephone Transplant Selvin Radha Kidney Eval Appts ( Spoke to pts Coni to let her know we need to r/s her husbands missed appts for his kidney eval she stated her is in the hospital at this time he has not been doing good. She stated he had a triple bipass in January that is why he couldn't make it to his appts. He has just not been doing good. She told me as soon as he gets out of the hospital she will call me back to try to schedule him for his appts.) 02/14/2017 [facility] Cardiovascular Martha Rod MD Coronary artery disease - Encounter of [place] artery of 02/17/2017 [place] heart with stable angina pectoris (Primary Dx); ESRD (end stage renal disease) 02/01/2017 Anesthesia Cardiothoracic Surgery Akbar Cota MD Event 02/01/2017 Procedure Pass Cardiothoracic Surgery 02/01/2017 Surgery Cardiothoracic Surgery Martha Rod MD Cabg x3, COLEY to LAD, SVG to RCA, SVG to OM; Endarterectomy of RCA and OM 01/27/2017 [facility] Cardiology Martha Rod MD S/P CABG ( coronary artery - Encounter bypass graft) (Primary 02/12/2017 Dx); Coronary arteriosclerosis; Coronary artery disease of [place] artery of [place] heart with stable angina pectoris 01/27/2017 Telephone Transplant Radha Montalvo R/S Day 2 Kidney ( Called pts back to r/s her for his day 2 appt since he was admitted to the hospital was not able to leave a message due to mailbox not set up yet.) 01/26/2017 Documentation Transplant Barrington Campbell - CASH [facility] HMO - RENAL EVAL APPRVL 01/25/2017 Telephone Transplant Isaias Morelos MA Reschedule appointment 01/05/2017 Documentation Transplant Radha Montalvo Kidney Eval Appts (Mailed itineraries to patient w/ 3 stool cards and instructions.) 01/01/2017 Telephone Transplant Radha Montalvo Kidney Eval Appts ( Spoke pts let her know that I will be scheduling her husbands appt for day 2 and day 3 she stated that was fine for me to mail him his itineraries when I schedule the appt for him.) 01/01/2017 Telephone Transplant Radha Montalvo Kidney Eval Appts ( Called pt left him a message to call me back to schedule the rest of his appts.) 12/30/2016 Documentation Transplant Lillie Lopez, HYDRAULIC MECHANIC 12/22/2016 Documentation Transplant Barrington Campbell - MCR AB ONLY - RENAL EVAL APPRVL 12/01/2016 [facility] Radiology Brian Landeros MD ESRD (end stage renal Encounter disease) 12/01/2016 Hospital Radiology Brian Landeros MD ESRD (end stage renal Encounter disease) 12/01/2016 Hospital Procedural Cardiology Brian Landeros MD ESRD (end stage renal Encounter disease) 12/01/2016 Hospital Transplant Clotilde Kimble MD ESRD (end stage renal Encounter disease) 12/01/2016 Hospital Transplant Clotilde Kimble MD Encounter Barrington Campbell 12/01/2016 Hospital Transplant Brian Landeros MD Encounter 12/01/2016 Hospital Procedural Cardiology Clotilde Kimble MD ESRD (end stage renal Encounter disease) 12/01/2016 Orders Only Transplant Jameel [address] RN ESRD (end stage renal disease) (Primary Dx) 12/01/2016 Orders Only Transplant Jameel [address] RN 11/30/2016 Documentation Transplant Barrington Campbell TXP - HUMANA [facility] H[facility] - RENAL EVAL APPRVL 11/22/2016 [facility] Clotilde Oscar MD Encounter 11/02/2016 Documentation Transplant Roseanne Davalos Consent Forms (Scanned Consent For Kidney Transplant Evaluation, Pre Txp Education & SUN forms in Media. 10-22-2016) 10/23/2016 Telephone Transplant Jacqui Peacock Appointment (Patient is on Dialysis and is available on Wed. and . Patient is scheduled for Pre-kidney eval on 12/01/16. Patient was taken to lab. Patient is also scheduled for TXP Journey class on 11/22/16.) 10/22/2016 Hospital Transplant Clotilde Kimble MD ESRD (end stage renal Encounter disease) 10/22/2016 Hospital Transplant Brian Landeros MD Encounter 10/22/2016 Hospital Transplant Clotilde Kimble MD Encounter 10/22/2016 Hospital Transplant Clotilde Kimble MD Encounter 10/19/2016 Orders Only Transplant Jameel [address] RN ESRD (end stage renal disease) (Primary Dx) 10/05/2016 Telephone Transplant Netta Campbell RN Error 10/05/2016 Telephone Transplant Netta Campbell RN recalling director internal communications 10/05/2016 Telephone Transplant María Elena Kong MA Return Call 09/29/2016 Telephone Netta Cerna RN Referral - Kidney Txp after 08/29/2016 Social History Tobacco Use Types Packs/Day Years Used Date Former Smoker Cigarettes 0.25 21 Quit: 2006 Smokeless Tobacco: Never Used Sex Assigned at Date Recorded Not on file Last Filed Vital Signs Vital Sign Reading Time Taken Blood Pressure 131/61 02/17/2017 7:22 PM CDT Pulse 93 02/17/2017 7:22 PM CDT Temperature 36.1 C (96.9 F) 02/17/2017 7:22 PM CDT Respiratory Rate 18 02/17/2017 7:22 PM CDT Oxygen Saturation 92% 02/17/2017 7:22 PM CDT Inhaled Oxygen - - Concentration Weight 82.5 kg (181 lb 14.4 oz) 02/17/2017 6:10 AM CDT Height 167.7 cm (5' 6.04") 02/15/2017 6:32 AM CDT Body Mass Index 29.32 02/17/2017 6:10 AM CDT Plan of Treatment Health Maintenance Due Date Last Done Comments FOOT EXAM 1978 OPHTHALMOLOGY EXAM 1978 URINE MICROALBUMIN 1978 INFLUENZA VACCINE 01/12/2017 Implants Implanted Type Area Straightening Machine Operator Device Expiration Model / Identifier Date Serial / Lot Lead Pace Ravindra Mycrdl Unipol Tmpry Cardiovasc N/A: N/A [facility] [facility] - 07/30/2018 [id number] / Streamline - [id number] - [id number] ulwi CARDIAC SRGRY [id number] / Implanted: Qty: 2 on 02/01/2017 by Implants [id number] Martha Rod MD Patch Biosurg Selnt Fibrin Absrbl Surgical N/A: N/A GARZA [id number] / 9.5x4.8cm Tachosil - [id number] Implants; BIOSCIENCE / Implanted: 02/01/2017 (Quantity not Expanders; on file) Extenders; Surgical Wires [place] Perph Vasclr Ptfe 1.2x10cm Vascular N/A: N/A BARD PERIPHERAL [id number] / 1.65mm - [id number] - [id number] Graft VASCULAR [id number] / Implanted: Qty: 1 on 02/01/2017 by [id number] Payton MD Procedures Procedure Name Priority Date/Time Associated Diagnosis Comments HEMODIALYSIS Routine 02/17/2017 8:16 AM CDT ECHOCARDIOGRAM 2D STAT 02/15/2017 Results for this COMPLETE W MMODE SPECTRAL 12:30 AM CDT procedure are in the [facility] D[facility]ER (32185) results section. HEMODIALYSIS Routine 02/14/2017 9:51 PM CDT HEMODIALYSIS Routine 02/12/2017 11:43 AM CDT HEMODIALYSIS Routine 02/11/2017 8:51 AM CDT ECHOCARDIOGRAM 2D Routine 02/09/2017 Results for this COMPLETE W MMODE SPECTRAL 4:07 PM CDT procedure are in the COLOR DOPPLER (34479) results section. HEMODIALYSIS Routine 02/09/2017 8:21 AM CDT HEMODIALYSIS Routine 02/06/2017 5:05 PM CDT HEMODIALYSIS Routine 02/04/2017 8:43 AM CDT LINE/DRAIN REMOVAL Routine 02/02/2017 S/P CABG (coronary artery Results for this 1:08 PM CDT bypass graft) procedure are in the results section. HEMODIALYSIS Routine 02/02/2017 8:16 AM CDT ANESTHESIA AYAN Routine 02/01/2017 7:01 PM CDT Procedure Note - Agnieszka Burr MD - 02/01/2017 5:51 PM CDT Procedure Performed: AYAN Start Time: End Time: Preanesth esia Checklist: Patient identified , IV assessed, risks and benefits discussed, monitors and equipment assessed, procedure being performed at surgeon's request, anesthesia consent obtained. General Procedure Informatio n Physician Requesting Echo: MARTHA ROD Location performed: OR Intubated Bite block placed Heart visualized Probe Insertion: Easy Probe Type: Multiplane Modalities : Color flow mapping Echocardi ographic and Doppler Measuremen ts Ventricle s Right Ventricle: Global function normal. Left Ventricle: Hypertroph y present. Global Function normal. Ejection Fraction 60%. Valves Aortic Valve: Stenosis not present. Regurgitat ion absent. Leaflets normal. Leaflet motions normal. Mitral Valve: Stenosis not present. Regurgitat ion +1. Leaflets normal. Leaflet motions normal. Tricuspid Valve: Stenosis not present. Regurgitat ion +1. Leaflets normal. Leaflet motions normal. Aorta Ascending Aorta: Size normal. Plaque thickness less than 3 mm. Descending Aorta: Size normal. Plaque thickness less than 3 mm. Septa Atrial Septum: Intra-atri al septal morphology normal. Anesthesi a Informatio n Performed Personally Anesthesio logist: AGNIESZKA BURR Echocardio gram Comments: Post bypass good LV function other exam unchanged ARTERIAL LINE Routine 02/01/2017 3:00 PM CDT Procedure Note - Agnieszka Burr MD - 02/01/2017 3:00 PM CDT Arterial line Performed by: AGNIESZKA BURR Authorized by: AGNIESZKA BURR Patient Location: Pre-op Staff: Anesthesio logist: AGNIESZKA BURR Performed by: Other staff Pre-proced ure: patient identified , IV checked, site and side verified, risks and benefits discussed, procedure verified, surgical consent complete, patient position confirmed, monitors and equipment checked and pre-op evaluation complete MSBT: antiseptic used, all elements of maximal sterile barrier technique followed, hand hygiene performed, cap/gown used by other personnel and solutions labeled Indication s: Indication s: hemodynami c monitoring Anesthesia : Anesthesia : General Procedure Details: Arterial Line placement: Placed by surgeon and placed post induction Line placement site: Femoral Line placement side: Right Arterial line gauge: 16 G Number of attempts: 1 Ultrasound guidance used: No Post-proce dure: Post-proce dure: Sterile dressing applied Post procedure circulatio n, sensation, movement: Normal Patient tolerance: Patient tolerated the procedure well with no immediate complicati ons PA CATHETER Routine 02/01/2017 1:56 PM CDT Procedure Note - Agnieszka Burr MD - 02/01/2017 12:42 PM CDT PA catheter Performed by: AGNIESZKA BURR Authorized by: AGNIESZKA BURR Patient Location: OR Staff: Anesthesio logist: AGNIESZKA BURR Resident/C RNA: AKBAR ELIZABETH Performed by: Resident/C RNA Preprocedu re: patient identified , IV checked, site and side verified, risks and benefits discussed, procedure verified, surgical consent complete, patient position confirmed, monitors and equipment checked and pre-op evaluation complete MSBT: antiseptic used, all elements of maximal sterile barrier technique followed, hand hygiene performed, cap/gown used by other personnel and solutions labeled Procedure details: PA Catheter Type: Oximetric PA Catheter Size: 9 PA Catheter Side: Right PA Catheter Site: Internal jugular PA Catheter secured at: 45 cm PA Catheter placed: PA Catheter placed without difficulty Waveform: PA Catheter wave confirmed Ports flushed: All ports flushed pre-proced ure Balloon checked: Balloon checked prior to insertion Post-proc edure: No arrhythmia : No arrhythmia s noted Patient tolerance: Patient tolerated the procedure well with no immediate complicati ons CENTRAL LINE Routine 02/01/2017 1:43 PM CDT Procedure Note - Agnieszka Burr MD - 02/01/2017 12:42 PM CDT Central line Performed by: AGNIESZKA BURR Authorized by: AGNIESZKA BURR Patient Location: OR Staff: Anesthesio logist: AGNIESZKA BURR Resident/C RNA: AKBAR ELIZABETH Performed by: /C GABRIEL Preprocedu re:patient identified , IV checked, site and side verified, risks and benefits discussed, procedure verified, surgical consent complete, patient position confirmed, monitors and equipment checked and pre-op evaluation complete MSBT: antiseptic used during central venous catheter insertion, all elements of maximal sterile barrier technique followed, hand hygiene performed prior to central venous catheter insertion, cap/gown used by other personnel during central venous catheter insertion, solutions labeled and all ports not used during insertion clamped Indication s: Indication s: Vascular access Anesthesia : Anesthesia : General Procedure details: Patient position: Trendelenb urg Catheter Type: Double lumen Catheter Size: 9 Fr Catheter Site: internal jugular vein Catheter site laterality : Right Pre-proced ure: Landmarks identified Ultrasound guidance used: Yes Ultrasound image saved: Yes Number of attempts: 1 Successful placement: Yes Guidewire removal: Guidewire removal is confirmed Guidewire removal witnessed by: JIMMY CHOI Post-proce dure: Post-proce dure: line sutured, sterile dressing applied per protocol and ports flushed with saline Post-proce dure: Sterile caps on all hubs Assessment : Blood return through all ports Patient tolerance: Patient tolerated the procedure well with no immediate complicati ons ARTERIAL LINE Routine 02/01/2017 12:43 PM CDT Procedure Note - Agnieszka Burr MD - 02/01/2017 12:41 PM CDT Arterial line Performed by: AGNIESZKA BURR Authorized by: AGNIESZKA BURR Patient Location: Pre-op Staff: Anesthesio logist: AGNIESZKA BURR Resident/C RNA: AKBAR ELIZABETH Performed by: /Alice RIOS Pre-proced ure: patient identified , IV checked, site and side verified, risks and benefits discussed, procedure verified, surgical consent complete, patient position confirmed, monitors and equipment checked and pre-op evaluation complete MSBT: antiseptic used, all elements of maximal sterile barrier technique followed, hand hygiene performed, cap/gown used by other personnel and solutions labeled Indication s: Indication s: multiple ABGs and hemodynami c monitoring Anesthesia : Anesthesia : Local infiltrati on Procedure Details: Arterial Line placement: Placed pre-induct ion Line placement site: Radial Line placement side: Right Arterial line gauge: 20 G Number of attempts: 1 Ultrasound guidance used: No Post-proce dure: Post-proce dure: Sterile dressing applied Post procedure circulatio n, sensation, movement: Normal Patient tolerance: Patient tolerated the procedure well with no immediate complicati ons AR AN ELECTIVE Routine 02/01/2017 ENDOTRACHEAL AIRWAY 12:37 PM CDT Procedure Note - Agnieszka Burr MD - 02/01/2017 12:37 PM CDT Airway Date/Time: 02/01/2017 12:34 PM Performed by: AGNIESZKA BURR Authorized by: AGNIESZKA BURR Location: OR Urgency: Elective Difficult Airway: No Anesthesio logist: AGNIESZKA BURR Other Anesthesia Staff: JIMMY CHOI Performed by: other anesthesia staff Preoxygena ana with 100% O2: Yes C-spine Precaution s Maintained Throughout : Yes Mask Ventilatio n: Easy mask Final Airway Type: Endotrache al airway Final Endotrache al Airway: ETT Cuffed: Yes Technique Used: Direct laryngosco py Devices/Me thods Used in Placement: Intubatin g stylet Insertion Site: Oral Blade Type: Rhodes Laryngosco pe Blade/Vide olaryngosc ope Blade Size: 2 ETT Size (mm): 8.0 Cuff at minimum occlusion pressure: Yes Measured from: Lips Placement Verified by: CO2 detection, direct visualizat ion and equal breath sounds Laryngosco pic view: Grade IIa - partial view of glottis Rapid Sequence Induction (RSI): No Modified RSI: No Number of Attempts at Approach: 1 HEMODIALYSIS Routine 02/01/2017 8:06 AM CDT HEMODIALYSIS Routine 02/01/2017 8:06 AM CDT HEMODIALYSIS Routine 01/29/2017 1:22 PM CDT ECHOCARDIOGRAM 2D Routine 01/28/2017 Results for this COMPLETE W MMODE SPECTRAL 10:48 AM CDT procedure are in the COLOR DOPPLER (03904) results section. ECHOCARDIOGRAM 2D Routine 12/01/2016 ESRD (end stage renal Results for this COMPLETE W MMODE SPECTRAL 11:28 AM CDT disease) procedure are in the COLOR DOPPLER (82644) results section. after 08/29/2016 Results * POC glucose (02/17/2017 9:10 AM) Only the most recent of 95 results within the time period is included. Component Value Ref Range POC glucose 138 (H) 65 - 99 mg/dL Comment: Meter ID: [id number] Records Management Engineer: Fuad Tobin Specimen Performing Laboratory [facility] DEPARTMENT OF PATHOLOGY AND GENOMIC MEDICINE [address] [place], [place] [id number] * CBC hemogram (02/17/2017 4:45 AM) Only the most recent of 10 results within the time period is included. Component Value Ref Range WBC 12.54 (H) 4.50 - 11.00 k/uL RBC 3.11 (L) 4.40 - 6.00 m/uL HGB 9.0 (L) 14.0 - 18.0 g/dL HCT 28.0 (L) 41.0 - 51.0 % MCV 90.0 82.0 - 100.0 fL MCH 28.9 27.0 - 34.0 pg MCHC 32.1 31.0 - 37.0 g/dL RDW - SD 44.3 37.0 - 55.0 fL MPV 9.0 8.8 - 13.2 fL Platelet count 526 (H) 150 - 400 k/uL Nucleated RBC 0.00 /100 WBC Specimen Performing Laboratory Blood [facility] DEPARTMENT OF PATHOLOGY AND GENOMIC MEDICINE [address] [place] [id number] * Ionized calcium (02/17/2017 4:45 AM) Only the most recent of 2 results within the time period is included. Component Value Ref Range pH 7.51 Ionized calcium 1.00 (L) 1.11 - 1.32 mmol/L Specimen Performing Laboratory Plasma specimen [facility] DEPARTMENT OF PATHOLOGY AND GENOMIC MEDICINE [address] [place] [address] * Estimated GFR (02/17/2017) Only the most recent of 19 results within the time period is included. Component Value Ref Range GFR Non Af Amer 6 (A) mL/min/1.73 m2 GFR Af Amer 7 (A) mL/min/1.73 m2 Comment: Chronic kidney disease: <60 mL/min/1.73m2 Kidney failure: <15 mL/min/1.73m2 The estimated GFR is calculated from the IDMS-traceable Modification of Diet in Renal Disease Equation. The accuracy of the calculation is poor when the creatinine is normal. Calculated values >90 mL/min/1.73m2 are not reported. This equation has not been validated in children (<18 years), women, the elderly (>70 years), or ethnic groups other than Caucasians and Americans. Specimen Performing Laboratory Plasma specimen [facility] [place] [address] * Phosphorus level (02/17/2017) Only the most recent of 5 results within the time period is included. Component Value Ref Range Phosphorus 4.9 (H) 2.4 - 4.5 mg/dL Specimen Performing Laboratory Plasma specimen [facility] [place] [address] * Magnesium level (02/17/2017) Only the most recent of 7 results within the time period is included. Component Value Ref Range Magnesium 2.4 1.6 - 2.6 mg/dL Specimen Performing Laboratory Plasma specimen [facility] [place] [address] * Basic metabolic panel (02/17/2017) Only the most recent of 17 results within the time period is included. Component Value Ref Range Sodium 134 (L) 135 - 148 mEq/L Potassium 4.5 3.5 - 5.0 mEq/L Chloride 91 (L) 98 - 112 mEq/L CO2 22 (L) 24 - 31 mEq/L Anion gap 21 (H) 7 - 15 mEq/L Comment: Starting from September , anion gap calculation no longer incorporates potassium. Please note the change. BUN 70 (H) 6 - 20 mg/dL Creatinine 9.2 (H) 0.7 - 1.2 mg/dL Glucose 178 (H) 65 - 99 mg/dL Calcium 8.8 8.3 - 10.2 mg/dL Specimen Performing Laboratory Plasma specimen [facility] [place] [address] * XR Chest 1 Vw Portable (02/16/2017 11:10 AM) Only the most recent of 4 results within the time period is included. Specimen Performing [facility] [address] [place], [place] [id number] Narrative EXAMINATION:XR CHEST 1 VW PORTABLE CLINICAL HISTORY:post thora COMPARISON:02/14/2017 chest IMPRESSION: Improving left pleural effusion with mild residual costophrenic angle fluid Hypoinflation without focal infiltrate or congestion Mild patchy bibasilar atelectasis. Cardiomediastinal silhouette normal size. Sternotomy wires as before. Right IJ dialysis catheter right atrial level [id number] Procedure Note Interface, Radiology Results Incoming - 02/16/2017 11:16 AM CDT EXAMINATION: XR CHEST 1 VW PORTABLE CLINICAL HISTORY: post thora COMPARISON: 02/14/2017 chest IMPRESSION: Improving left pleural effusion with mild residual costophrenic angle fluid Hypoinflation without focal infiltrate or congestion Mild patchy bibasilar atelectasis. Cardiomediastinal silhouette normal size. Sternotomy wires as before. Right IJ dialysis catheter right atrial level [id number] * US Thoracentesis With Imaging (02/16/2017 10:21 AM) Specimen Performing Laboratory [facility] [address] [place] [id number] Narrative EXAMINATION:US THORACENTESIS WITH IMAGING CLINICAL HISTORY: Left pleural effusion, status post CABG TECHNIQUE: The procedure's risks, benefits, and alternatives were discussed with the patient and written, informed consent was obtained. Using ultrasound guidance, the left pleural effusion was localized and the overlying posterior chest was prepped and draped in the usual sterile fashion. 1% buffered lidocaine was used for local anesthesia. A 5 [place] Yueh catheter was inserted into the pleural space and 1.2 L of sanguinous pleural fluid was removed.Post procedure images reveal no significant residual effusion. The patient tolerated the procedure without difficulty and was discharged to the radiology recovery area for postprocedure chest x-ray prior to discharge. EBL: None. COMPLICATIONS: None. SPECIMENS: As above. ASSISTANTS: None. IMPRESSION: Technically successful ultrasound-guided left-sided therapeutic thoracentesis. [facility]-[id number] Procedure Note Interface, Radiology Results Incoming - 02/16/2017 10:27 AM CDT EXAMINATION: US THORACENTESIS WITH IMAGING CLINICAL HISTORY: Left pleural effusion, status post CABG TECHNIQUE: The procedure's risks, benefits, and alternatives were discussed with the patient and written, informed consent was obtained. Using ultrasound guidance, the left pleural effusion was localized and the overlying posterior chest was prepped and draped in the usual sterile fashion. 1% buffered lidocaine was used for local anesthesia. A 5 Kazakh Yueh catheter was inserted into the pleural space and 1.2 L of sanguinous pleural fluid was removed. Post procedure images reveal no significant residual effusion. The patient tolerated the procedure without difficulty and was discharged to the radiology recovery area for postprocedure chest x-ray prior to discharge. EBL: None. COMPLICATIONS: None. SPECIMENS: As above. ASSISTANTS: None. IMPRESSION: Technically successful ultrasound-guided left-sided therapeutic thoracentesis. [facility]-[id number] * Partial thromboplastin time, activated (02/16/2017 2:35 AM) Only the most recent of 4 results within the time period is included. Component Value Ref Range PTT 33.9 23.0 - 36.0 sec Comment: PTT therapeutic range for unfractionated heparin is 61.0-112.0 seconds which corresponds to Anti-Xa 0.3-0.7 U/ml. Specimen Performing Laboratory Blood [facility] DEPARTMENT OF PATHOLOGY AND GENOMIC MEDICINE [address] [place], [place] [id number] * Prothrombin time with INR (02/16/2017 2:35 AM) Only the most recent of 8 results within the time period is included. Component Value Ref Range Prothrombin time 15.9 (H) 12.0 - 15.0 sec INR 1.3 Comment: The International Normalized Ratio (INR) is a therapeutic monitoring tool for patients who are stable on oral anticoagulant therapy. An INR of 2.0-3.0 is suggested for deep vein thrombosis/pulmonary embolism. Specimen Performing Laboratory Blood [facility] DEPARTMENT OF PATHOLOGY AND GENOMIC MEDICINE [address] [place] [address] * US Chest (02/15/2017 7:41 AM) Specimen Performing Laboratory [facility] [address] [place] [address] Narrative EXAMINATION:US CHEST CLINICAL HISTORY: Pleural effusiondiagnosislocalization for thoracentesis COMPARISON:None. FINDINGS: Limited ultrasound of the chest demonstrates no significant pleural effusion on the right side. There is a large left-sided pleural effusion with calculated volume of approximately 1 L. IMPRESSION: As above [facility]-[id number] Procedure Note Interface, Radiology Results Incoming - 02/15/2017 8:39 AM CDT EXAMINATION: US CHEST CLINICAL HISTORY: Pleural effusion diagnosis localization for thoracentesis COMPARISON: None. FINDINGS: Limited ultrasound of the chest demonstrates no significant pleural effusion on the right side. There is a large left-sided pleural effusion with calculated volume of approximately 1 L. IMPRESSION: As above [facility]-[id number] * Echocardiogram complete w contrast and 3D if needed (02/15/2017 12:30 AM) Specimen Performing Laboratory [facility] [address] [place] [address] Narrative Echocardiography Report [address] [address], [place] [address] Pat.Name:ERIC THOMAS Pat.ID:[id number] .Date: 02/14/2017Refer.MD:MARTHA ROD MD Exam Time: 9:46:00 PMStudy Type:Routine Echo Height:68inWeight:201lb BSA: 2.05 m2 DOBAge:1970 ,46Y Sex: MALEBP: 164/82 HR:90 bpmSonogrphr: Delia Tariq RDCS, RVT Pat. Stat.:Inpatient Room:[place] [address] Study Status:Final Echo Event ID:[id number] Order ID:[id number] Reason for Study:Ventricular Function after ACS- Re-eval of ventricular ffunction following ACS during recovery phase when results will guide therapy. S/p CABG POD 11 now with chest pain and pleural and pericardial effusion on CT. History / Clinical:Diabetes, Hyperlipidemia, Hypertension, ESRD, Anemia, Coronary Artery Disease, s/p CABG (02/02/17) Procedures:2D Echo, Colorflow Doppler, Portable Race:C SUMMARY: There is mild concentric LV hypertrophy. LV systolic function is hyperdynamic. LA volume is moderately enlarged. LV filling pressure is normal. No intracardiac flow abnormalities detected by Doppler. FINDINGS: LV: LV size is normal. There is mild concentric LV hypertrophy. LVsystolic function is hyperdynamic. Overall wall motion ishyperdynamic. Estimated EF is >70%. RV: RV size is normal. RV systolic function is normal. LA: LA volume is moderately enlarged. RA: RA size is normal. AO: Aortic root diameter is normal. NADIR: No pericardial effusion. PLE:Pleural effusion is present. AV: No structural AV abnormalities noted. MV: No structural MV abnormalities noted. PV: No structural PV abnormalities noted. A trace of pulmonic regurgitation. TV: No structural TV abnormalities noted. Kaminski: LV relaxation is impaired. LV filling pressure is normal. Other:Insufficient TR jet to estimate PA systolic pressure. No intracardiacflow abnormalities detected by Doppler. MEASUREMENTS: 2D Parasternal [place] LVOT 1.8 cmLA Ds 3.2 cm LVIDd3.9 cmIndex 1.9 cm/m Ao An1.8 cm LVIDs2 cmAo Rtd 3.5 cm Index1.7 cm/m LV%fs 48.7 % LV Mcmc984.7 g(122-174) IVSd 1.4 cmLVM Index 87.7 g/m2 LVPWd1.2 cmRWT 0.6 LA Sng Plane LA Area 23.1 cm2(8.8-23.4) LA Vol84.2 ml Index41.1 ml/m LA LngAx 4.8 cm Signed 02/15/2017 10:47 AM Donn Partida M.D. Procedure Note Interface, Radiology Results In - 02/15/2017 10:47 AM CDT Echocardiography Report [address] [address] Pat.Name: ERIC THOMAS.ID: [id number] .Date: 02/14/2017 Refer.MD: MARTHA ROD MD Exam Time: 9:46:00 PM Study Type:Routine Echo Height: 68in Weight: 201lb BSA: 2.05 m2 Age: 2 1970,46Y Sex: MALE BP: 164/82 HR: 90 bpm Sonogrphr: Delia Tariq RDCS, RVT Pat. Stat.:Inpatient Room: [place] [address] Study Status:Final Echo Event ID:[id number] Order ID: [id number] Reason for Study:Ventricular Function after ACS- Re-eval of ventricular ffunction following ACS during recovery phase when results will guide therapy. S/p CABG POD 11 now with chest pain and pleural and pericardial effusion on CT. History / Clinical:Diabetes, Hyperlipidemia, Hypertension, ESRD, Anemia, Coronary Artery Disease, s/p CABG (02/02/17) Procedures:2D Echo, Colorflow Doppler, Portable Race: C SUMMARY: There is mild concentric LV hypertrophy. LV systolic function is hyperdynamic. LA volume is moderately enlarged. LV filling pressure is normal. No intracardiac flow abnormalities detected by Doppler. FINDINGS: LV: LV size is normal. There is mild concentric LV hypertrophy. LV systolic function is hyperdynamic. Overall wall motion is hyperdynamic. Estimated EF is >70%. RV: RV size is normal. RV systolic function is normal. LA: LA volume is moderately enlarged. RA: RA size is normal. AO: Aortic root diameter is normal. NADIR: No pericardial effusion. PLE: Pleural effusion is present. AV: No structural AV abnormalities noted. MV: No structural MV abnormalities noted. PV: No structural PV abnormalities noted. A trace of pulmonic regurgitation. TV: No structural TV abnormalities noted. Kaminski: LV relaxation is impaired. LV filling pressure is normal. Other: Insufficient TR jet to estimate PA systolic pressure. No intracardiac flow abnormalities detected by Doppler. MEASUREMENTS: 2D Parasternal [place] LVOT 1.8 cm LA Ds 3.2 cm LVIDd 3.9 cm Index 1.9 cm/m Ao An 1.8 cm LVIDs 2 cm Ao Rtd 3.5 cm Index 1.7 cm/m LV%fs 48.7 % LV Mass 179.7 g (122-174) IVSd 1.4 cm LVM Index 87.7 g/m2 LVPWd 1.2 cm RWT 0.6 LA Sng Plane LA Area 23.1 cm2 (8.8-23.4) LA Vol 84.2 ml Index 41.1 ml/m LA LngAx 4.8 cm Signed 02/15/2017 10:47 AM Donn Partida M.D. * ECG 12 lead (02/14/2017 9:31 PM) Only the most recent of 8 results within the time period is included. Component Value Ref Range Ventricular rate 92 Atrial rate 92 AR interval 142 QRSD interval 84 QT interval 366 QTC interval 452 P axis 1 57 QRS axis 1 18 T wave axis 93 EKG impression Normal sinus rhythm-Inferior infarct (cited on or before 03-FEB-2017)-T wave abnormality, consider lateral ischemia-Abnormal ECG- Specimen Performing Laboratory [facility] [address] [place] [address] * Troponin (02/14/2017 9:00 PM) Component Value Ref Range Troponin <0.30 0.00 - 0.30 ng/mL Comment: 0.30 - 1.49 ng/ml May indicate increased risk of acute coronary syndrome. >=1.5 ng/ml Consistent with acute myocardial infarction. The diagnostic value of a single normal or non-diagnostic result is questionable. Serial samples at 2-6 hour intervals are required to rule out acute myocardial injury. Specimen Performing Laboratory Blood [facility] DEPARTMENT OF PATHOLOGY AND [facility] [address] [place] [address] * CBC with platelet and differential (02/14/2017 9:00 PM) Only the most recent of 5 results within the time period is included. Component Value Ref Range WBC 13.03 (H) 4.50 - 11.00 k/uL RBC 2.97 (L) 4.40 - 6.00 m/uL HGB 8.7 (L) 14.0 - 18.0 g/dL HCT 27.0 (L) 41.0 - 51.0 % MCV 90.9 82.0 - 100.0 fL MCH 29.3 27.0 - 34.0 pg MCHC 32.2 31.0 - 37.0 g/dL RDW - SD 46.0 37.0 - 55.0 fL MPV 8.6 (L) 8.8 - 13.2 fL Platelet count 533 (H) 150 - 400 k/uL Nucleated RBC 0.00 /100 WBC Neutrophils 78.5 (H) 39.0 - 69.0 % Lymphocytes 12.4 (L) 25.0 - 45.0 % Monocytes 6.6 0.0 - 10.0 % Eosinophils 1.6 0.0 - 5.0 % Basophils 0.4 0.0 - 1.0 % Immature granulocytes 0.5Comment: "Immature granulocytes" 0.0 - 1.0 % (promyelocytes, myelocytes, metamyelocytes) Specimen Performing Laboratory Blood [facility] DEPARTMENT OF PATHOLOGY AND [address] [address] * Type and screen (02/14/2017 9:00 PM) Only the most recent of 4 results within the time period is included. Component Value Ref Range ABO grouping A Rh type POS Antibody screen (gel) NEG Specimen Performing Laboratory Blood [facility] DEPARTMENT OF PATHOLOGY AND [address] [address] * B natriuretic peptide (02/14/2017 9:00 PM) Component Value Ref Range BNP 630 (H) 0 - 100 pg/mL Specimen Performing Laboratory Blood [facility] DEPARTMENT OF PATHOLOGY AND [facility] [address] [place] [address] * Lipase level (02/14/2017 9:00 PM) Only the most recent of 2 results within the time period is included. Component Value Ref Range Lipase 33 13 - 60 U/L Specimen Performing Laboratory Blood [facility] DEPARTMENT OF PATHOLOGY AND [facility] [address] [place] [address] * Lactic acid level (02/14/2017 9:00 PM) Component Value Ref Range Lactic acid 1.3 0.5 - 2.2 mmol/L Specimen Performing Laboratory Blood [facility] DEPARTMENT OF PATHOLOGY AND [facility] [address] [place] [address] * Amylase level (02/14/2017 9:00 PM) Only the most recent of 2 results within the time period is included. Component Value Ref Range Amylase 34 13 - 53 U/L Specimen Performing Laboratory Blood [facility] [place] [address] * Hepatic function panel (02/14/2017 9:00 PM) Component Value Ref Range Albumin 2.3 (L) 3.5 - 5.0 g/dL Total bilirubin 0.4 0.0 - 1.2 mg/dL Bilirubin direct <0.2 0.0 - 0.3 mg/dL Alkaline phosphatase 124 40 - 129 U/L Protein 7.5 6.3 - 8.3 g/dL Comment: 4.6-7.0 g/dL 1 week 4.4-7.6 g/dL 7 months-1year 5.1-7.3 g/dL 1-2 years 5.6-7.5 g/dL >3 years 6.0-8.0 g/dL 18-150 6.3-8.3 g/dL ALT 10 5 - 50 U/L AST 27 10 - 50 U/L Specimen Performing Laboratory Blood [facility] DEPARTMENT OF PATHOLOGY AND [facility] [address] [place] [address] * Echocardiogram complete w contrast and 3D if needed (02/09/2017 4:07 PM) [facility]imen [facility] [address] [place] [address] Narrative Echocardiography Report [address] [place] [address] Pat.Name:ERIC THOMAS.ID:[id number] .Date: 02/09/2017 Refer.MD:MARTHA ROD MD Exam Time: 3:00:00 PMStudy Type:Routine Echo Height:67inWeight:205lb BSA: 2.05 m2 DOBAge:1970 ,46Y Sex: MALEBP: 102/70 HR:80 bpm Sonogrphr: ESTELLA Vela [facility]. Stat.:Inpatient Room:[facility] Study Status:Final Echo Event ID:[id number] Order ID:[id number] Reason for Study:s/p CABG History / Clinical:Diabetes, Hyperlipidemia, Hypertension, ESRD, Anemia, Coronary Artery Disease, s/p CABG (02/02/17) Procedures:2D Echo, Colorflow Doppler, Strain Race:C FINDINGS: LV: LV size is normal. Concentric left ventricular remodeling. LVsystolic function is hyperdynamic with cavity obliteration.Overall wall motion is hyperdynamic. EstimatedEF is >70%. RV: RV size is normal. RV systolic function is normal. LA: LA volume is upper limits of normal. RA: RA volume is normal. A catheter is seen. AO: Aortic root diameter is normal. NADIR: No pericardial effusion. PLE:Pleural effusion is present. Echoes within the pleural space suggestthe presence of a mass or fibrino-adhesive material AV: No structural AV abnormalities noted. MV: No structural MV abnormalities noted. PV: No structural PV abnormalities noted. Mild pulmonic regurgitation. TV: No structural TV abnormalities noted. Mild tricuspid regurgitation Other:Insufficient TR jet to estimate PA systolic pressure. MEASUREMENTS: 2D Parasternal [place] LA Ds3.4 cmLVPWd 1.2 cm Ao Rtd 3.5 cmIndex 1.7 cm/m LV Mgrq085.1 g(122-174) LVIDd4 cmIndex 2 cm/m LVM Index 73.7 g/m2 IVSd 1.1 cmRWT 0.6 LA Sng Plane LA Area 21.6 cm2(8.8-23.4) LA Vol65.6 ml Index32 ml/m LA LngAx 6.4 cm Signed 02/09/2017 04:47 PM Gabino Washington M.D. Procedure Note Interface, Radiology Results In - 02/09/2017 4:47 PM CDT Echocardiography Report [address] [place] [address] Pat.Name: ERIC THOMAS Pat.ID: [id number] .Date: 02/09/2017 Refer.MD: MARTHA ROD MD Exam Time: 3:00:00 PM Study Type:Routine Echo Height: 67in Weight: 205lb BSA: 2.05 m2 Age: 2 1970,46Y Sex: MALE BP: 102/70 HR: 80 bpm Sonogrphr: ESTELLA Vela Pat. Stat.:Inpatient Room: [facility] Study Status:Final Echo Event ID:[id number] Order ID: [id number] Reason for Study:s/p CABG History / Clinical:Diabetes, Hyperlipidemia, Hypertension, ESRD, Anemia, Coronary Artery Disease, s/p CABG (02/02/17) Procedures:2D Echo, Colorflow Doppler, Strain Race: C FINDINGS: LV: LV size is normal. Concentric left ventricular remodeling. LV systolic function is hyperdynamic with cavity obliteration. Overall wall motion is hyperdynamic. Estimated EF is >70%. RV: RV size is normal. RV systolic function is normal. LA: LA volume is upper limits of normal. RA: RA volume is normal. A catheter is seen. AO: Aortic root diameter is normal. NADIR: No pericardial effusion. PLE: Pleural effusion is present. Echoes within the pleural space suggest the presence of a mass or fibrino-adhesive material AV: No structural AV abnormalities noted. MV: No structural MV abnormalities noted. PV: No structural PV abnormalities noted. Mild pulmonic regurgitation. TV: No structural TV abnormalities noted. Mild tricuspid regurgitation Other: Insufficient TR jet to estimate PA systolic pressure. MEASUREMENTS: 2D Parasternal [place] LA Ds 3.4 cm LVPWd 1.2 cm Ao Rtd 3.5 cm Index 1.7 cm/m LV Mass 151.1 g (122-174) LVIDd 4 cm Index 2 cm/m LVM Index 73.7 g/m2 IVSd 1.1 cm RWT 0.6 LA Sng Plane LA Area 21.6 cm2 (8.8-23.4) LA Vol 65.6 ml Index 32 ml/m LA LngAx 6.4 cm Signed 02/09/2017 04:47 PM Gabino Washington M.D. * Transfuse RBC (02/06/2017 5:11 PM) Only the most recent of 3 results within the time period is included. * Prepare RBC, 2 Units (02/06/2017 9:45 AM) Only the most recent of 2 results within the time period is included. Component Value Ref Range Product name Red Cells AS1 Leukored Irrad Unit number [id number] Product code [id number] Dispense status Transfused Blood expiration date 20170301 Blood type code 6200 Blood type A POSITIVE Product name Red Cells AS1 Leukored Irrad Unit number [id number] Product code [id number] Dispense status Transfused Blood expiration date 20170223 Blood type code 6200 Blood type A POSITIVE Specimen Performing Laboratory [facility] DEPARTMENT OF PATHOLOGY AND GENOMIC MEDICINE [address] [place] [address] * Vitamin D 25 hydroxy level (02/03/2017 9:40 AM) Component Value Ref Range Vitamin D, 25-hydroxy 8.5 (L) 30.0 - 150.0 ng/mL Comment: This assay reports the sum of 25-hydroxy vitamin D3 and 25-hydroxy vitamin D2. Reference range: 0-17 years: Deficiency: less than 20ng/mL Optimum level: greater than or equal to 20 ng/mL. 18 years and older: Deficiency: less than 20ng/mL Insufficiency: 20-29 ng/mL Optimum Level: 30-80 ng/mL The assay reportable range is 3.4 155.9 ng/mL. Levels higher than 150 ng/mL may be associated with toxicity. If toxicity is clinically suspected and the reported result is >155.9 ng/mL,contact lab for alternative methods to obtain a definitive level. If separate quantitation of 25-hydroxy vitamin D3 and 25-hydroxy vitamin D2 is needed, please contact lab for alternative methods. Specimen Performing Laboratory Blood [facility] DEPARTMENT OF PATHOLOGY AND GENOMIC MEDICINE [address] [place] [address] * Line/Drain Removal (02/02/2017 1:08 PM) Zachary Dyer PA-C 02/02/20171:08 PM Line/Drain Removal Date/Time: 02/02/2017 1:08 PM Performed by: ALENA DYER Authorized by: ALENA DYER Pre-procedure details: Line or drain removed:Chest tube (x 2) Indication(s) for removal:Treatment completed Patient position:Supine Chest Tube Removal: Chest tube removed from suction: Yes Sutures retied: Yes Removal procedure: Number of people performing procedure:1 Catheter intact?:Yes Insertion site:No redness, no swelling and no drainage Breath held: Yes Pressure applied to site?: Yes Dressing applied::4x4 sterile gauze and occlusive * Arterial blood gas (02/02/2017 2:23 AM) Only the most recent of 2 results within the time period is included. Component Value Ref Range pH, arterial 7.38 7.35 - 7.45 pCO2, arterial 40 35 - 45 mmHg pO2, arterial 120 (H) 80 - 90 mmHg Bicarbonate, arterial 23.4 21.0 - 28.0 mmol/L Base excess, arterial -1 -2 - 2 mEq/L O2 saturation, arterial 98 95 - 100 % Specimen Performing Laboratory Blood [facility] DEPARTMENT OF PATHOLOGY AND GENOMIC MEDICINE [address] [place] [address] * Ionized calcium, arterial (02/01/2017 8:30 PM) Only the most recent of 9 results within the time period is included. Component Value Ref Range Ionized calcium, arterial 1.27 1.11 - 1.32 mmol/L Specimen Performing Laboratory Blood [facility] [place] [address] * Sodium level, syringe (02/01/2017 7:19 PM) Only the most recent of 8 results within the time period is included. Component Value Ref Range Sodium, syringe 132 (L) 135 - 148 mEq/L Specimen Performing Laboratory Blood [facility] [place] [address] * Potassium, syringe (02/01/2017 7:19 PM) Only the most recent of 8 results within the time period is included. Component Value Ref Range Potassium, syringe 5.1 (H) 3.5 - 5.0 mEq/L Specimen Performing Laboratory Blood [facility] [place] [address] * Hemoglobin, syringe (02/01/2017 7:19 PM) Only the most recent of 8 results within the time period is included. Component Value Ref Range Hemoglobin, syringe 7.0 (LL) 14.0 - 18.0 g/dL Specimen Performing Laboratory Blood [facility] [place] [address] * Glucose level, syringe (02/01/2017 7:19 PM) Only the most recent of 8 results within the time period is included. Component Value Ref Range Glucose, syringe 180 (H) 65 - 99 mg/dL Specimen Performing Laboratory Blood [facility] [place] [address] * Arterial blood gas, corrected (02/01/2017 7:19 PM) Only the most recent of 8 results within the time period is included. Component Value Ref Range pH, arterial 7.36 7.35 - 7.45 pCO2, arterial 38 35 - 45 mmHg pO2, arterial 231 (H) 80 - 90 mmHg Temperature, Celsius 37.0 Degrees C O2 saturation, arterial 100 95 - 100 % pH, arterial corrected 7.36 pCO2, arterial corrected 38 mmHg pO2, arterial corrected 231 mmHg Base excess, arterial -4 (L) -2 - 2 mEq/L Specimen Performing Laboratory Blood [facility] [place] [address] * Rotational thromboelastometry (02/01/2017 6:25 PM) Only the most recent of 4 results within the time period is included. Component Value Ref Range Test type INTEM Specimen description Post Pump Clot time 229 sec Clot formation time 78 sec Alpha angle 76 deg Amplitude, 20 min SEE COMMENT mm Comment: Footnote--------- Test stopped early; unable to report. Maximum clot firmness 58Comment: Test stopped early; this is an mm estimated value. Maximum lysis 0Comment: Test stopped early; this is an estimated % value. Lysis index, 30 min SEE COMMENT % Comment: Footnote--------- Test stopped early; unable to report. Reference see below Comment: Test Type CT (sec) CFT (sec) a angle(deg) A20 (mm) MCF (mm) INTEM 122-208 45-110 70-81 51-72 51-72 EXTEM 43-82 48-127 65-80 50-70 52-70 FIBTEM n/a n/a n/a 7-24 7-24 HEPTEM HEPTEM should be compared to INTEM. INTEM-HEPTEM results allow assessment of hemostasis without the overlaying heparin effect. APTEM APTEM should be compared to EXTEM in order to obtain evidence of fibrinolytic activity. Specimen Performing Laboratory Plasma specimen [facility] DEPARTMENT OF PATHOLOGY AND GENOMIC MEDICINE [address] [place] [address] * Fibrinogen (02/01/2017 6:22 PM) Only the most recent of 2 results within the time period is included. Component Value Ref Range Fibrinogen 335 200 - 450 mg/dL Specimen Performing Laboratory Blood [facility] DEPARTMENT OF PATHOLOGY AND GENOMIC MEDICINE [address] [place] [address] * Platelet count (02/01/2017 6:22 PM) Only the most recent of 2 results within the time period is included. Component Value Ref Range Platelet count 111 (L) 150 - 400 k/uL Specimen Performing Laboratory [facility] DEPARTMENT OF PATHOLOGY AND GENOMIC MEDICINE [address] [place] [address] * Total iron binding capacity (02/01/2017 10:50 AM) Component Value Ref Range Iron level 46 (L) 59 - 158 ug/dL Iron binding capacity 201 200 - 400 ug/dL % Saturation 22.9 20.0 - 40.0 % Specimen Performing Laboratory Plasma specimen [facility] DEPARTMENT OF PATHOLOGY AND [facility] [address] [place] [address] * Ferritin level (02/01/2017 10:50 AM) Component Value Ref Range Ferritin level 1,124 (H) 30 - 400 ng/mL Specimen Performing Laboratory Plasma specimen [facility] DEPARTMENT OF PATHOLOGY AND [facility] [address] [place] [address] * Surgical pathology request (02/01/2017 8:52 AM) Component Value Ref Range Surgical pathology report See link below for PDF Lab Report Specimen Performing Laboratory [facility] DEPARTMENT OF PATHOLOGY [facility] GENOMIC MEDICINE [address] [place] [address] * Prepare platelet pheresis (02/01/2017 2:45 AM) Component Value Ref Range Product name Apheresis Platelet ACDA LRIRR #1 Unit number [id number] Product code [id number] Dispense status Transfused Blood expiration date 20170202 Blood type code 5100 Blood type O POSITIVE Product name Apheresis Platelet ACDA LRIRR #1 Unit number [id number] Product code [id number] Dispense status Transfused Blood expiration date 20170202 Blood type code 5100 Blood type O POSITIVE Specimen Performing Laboratory [facility] DEPARTMENT OF PATHOLOGY [facility] [address] [place] [address] * Hepatitis B surface antigen (01/29/2017 5:47 PM) Only the most recent of 2 results within the time period is included. Component Value Ref Range Hepatitis B surface Ag Non-reactive Non-reactive Specimen Performing Laboratory Blood [facility] DEPARTMENT OF PATHOLOGY AND GENOMIC MEDICINE [address] [place] [address] * Urea nitrogen, urine, random (01/28/2017 5:45 PM) Component Value Ref Range Urea nitrogen, urine, 142 mg/dL random Specimen Performing Laboratory Urine [facility] DEPARTMENT OF PATHOLOGY AND GENOMIC MEDICINE [address] [place] [address] * Protein, urine, random (01/28/2017 5:45 PM) Component Value Ref Range Protein, urine random 1,090 mg/dL Specimen Performing Laboratory Urine [facility] DEPARTMENT OF PATHOLOGY AND GENOMIC MEDICINE [address] [place] [address] * Creatinine level, urine, random (01/28/2017 5:45 PM) Component Value Ref Range Creatinine, urine, random 69 mg/dL Specimen Performing Laboratory Urine [facility] [facility] DEPART[facility] OF [facility]OLOG[facility] AND GENOMIC MEDICINE [address] [place] [address] * Urinalysis, automated with microscopy (01/28/2017 5:45 PM) Component Value Ref Range Color, UA Straw Appearance, UA Clear Specific gravity, UA 1.012 1.001 - 1.035 pH, UA 8.0 5.0 - 8.5 Protein, UA 3+ (A) Negative Glucose, UA 3+ (A) Negative Ketones, UA Negative Negative Bilirubin, UA Negative Negative Blood, UA Negative Negative Nitrite, UA Negative Negative Urobilinogen, UA <2.0 <2.0 Leukocyte esterase, UA Negative Negative WBC, UA 3 (H) 0 - 1 /HPF RBC, UA 2 (H) 0 - 1 /HPF Bacteria, UA None seen None seen Hyaline casts, UA 3 /LPF Yeast, UA None seen Yeast with pseudohyphae, None seen UA Specimen Performing Laboratory Urine [facility] DEPARTMENT OF PATHOLOGY AND GENOMIC MEDICINE [address] [place] [address] * XR Chest 2 Vw (01/28/2017 4:03 PM) Only the most recent of 2 results within the time period is included. Specimen Performing Laboratory [facility] [address] [place] [address] Narrative Examination:XR CHEST 2 VW Clinical History: Chest Pain, pre op surg Comparison: December 01, 2016 Technique: Frontal and lateral views of the chest Impression: Dialysis catheter. Courses to the right HM. No pulmonary consolidation or pleural effusion. Heart size and partly vascularity grossly normal. Bones are intact. No evidence of acute process. [facility]-[id number] Procedure Note Interface, Radiology Results Incoming - 01/28/2017 4:12 PM CDT Examination: XR CHEST 2 VW Clinical History: Chest Pain, pre op surg Comparison: December 01, 2016 Technique: Frontal and lateral views of the chest Impression: Dialysis catheter. Courses to the right . No pulmonary consolidation or pleural effusion. Heart size and partly vascularity grossly normal. Bones are intact. No evidence of acute process. [facility]-[id number] * Pv carotid duplex (01/28/2017 11:35 AM) Only the most recent of 2 results within the time period is included. Specimen Performing Laboratory [facility] [address] [place] [address] Narrative Vascular Ultrasound Laboratory Carotid Artery Duplex Report [address] [place] [address] For research associate quality control qc purposes, the categorization of the degree of the stenosis of this exam is based on criteria described in the IAC carotid stenosis grading white paper( www.intersocietal.org/Vascular) and Evaristo Parson., Amy Macario, et al. Carotid artery stenosis: augustine-scale and Doppler US diagnosis--Society of Radiologists in Ultrasound Consensus Conference. Radiology. 2003 Nov; 229(2):340-6. Pat.Name:ERIC THOMAS Pat.ID:[id number] .Date: 01/28/2017 Refer.MD:MARTHA ROD MD Exam Time: 11:00:00 AM Study Type:Carotid DOBAge:1970,46YSex: MALE Sonogrphr: Lenora Yanes RVT Pat. Stat.:Inpatient TapeVol: SD, CPT - 4: 31929 Echo Event ID:[id number] Order ID:[id number] Reason for Study:Pre-operaive CV exam for renal transplant evaluation, Hx of DM, HTN, ESRD, Left arm AVF. Race:C SUMMARY: PHYSICAL ASSESSMENT BloodPulsesCarotid Pressure Carotid TemporalBruit Right 164/84 ++0 Left AV fistula ++0 CAROTID ARTERY SCAN RIGHT:There is smooth intimal lining in the common carotid artery. There is hardplaque noted in the bulb extending into the proximal internal carotid artery.The external carotid artery is clear. Colorflow is normal. LEFT:There is intimal thickeningin the common carotid artery. There is hardplaque noted in the bulb. The internal and external carotid artery is clear. Colorflow is normal. PRELIMINARY FINDINGS 1. <50% stenosis in the bulb/internal carotid artery. 2. Non stenotic hard plaque seen in the left bulb. 3. Increased velocity noted in the external carotid artery, bilaterally. Plaque is not seen. PHYSICIAN INTERPRETATION 1.Bilateral carotid artery examination demonstrates plaque in the bulbs and right internal carotid artery without hemodynamically significant stenosis. (<50%) Carotid Findings:RightLeft Verteb.Flw Antegrade Antegrade Subclavian TriphasicAVF MEASUREMENTS: DOPPLER Right CCA Dist CCA Dist PSV 141 cm/sCCA Dist EDV22 cm/ s Right CCA Mid CCA Mid FUM500 cm/sCCA Mid EDV 20.4 cm/ s Right CCA Prox CCA Prox PSV 102 cm/sCCA Prox EDV20.8 cm/s Right ECA ECA YEK987 cm/sECA EDV 0 cm/s Right ICA Dist ICA Dist PSV64.9 cm/Capri Dist EDV23.1 cm/s Right ICA Mid ICA Mid BYM007 cm/Capri Mid EDV 22.1 cm/ s Right ICA Prox ICA Prox PSV 123 cm/Capri Prox EDV29.9 cm/s Right Vertebral Vertebral PSV 46.9 cm/sVertebral EDV 14.7 cm/s Left CCA Dist CCA Dist PSV 117 cm/sCCA Dist EDV22.1 cm/s Left CCA Mid CCA Mid MQW022 cm/sCCA Mid EDV 16.7 cm/ s Left CCA Prox CCA Prox PSV 142 cm/sCCA Prox EDV16.7 cm/s Left ECA ECA ETK574 cm/sECA EDV 0 cm/s Left ICA Dist ICA Dist PSV64.6 cm/Capri Dist EDV15.8 cm/s ICA Mid ICA Mid [id number] cm/Capri Mid EDV 27 cm/s Left ICA Prox ICA Prox PSV 114 cm/Capri Prox EDV19.5 cm/s Left Vertebral Vertebral PSV 49.9 cm/sVertebral EDV 13.3 cm/s Right ECA Prox ECA Prox PSV 181 cm/sECA Prox EDV 0 cm/ s Left ECA Prox ECA Prox PSV 173 cm/sECA Prox EDV 0 cm/ s Right ICA/CCA Ratio ICA/CCA PSV 1.02 Left ICA/CCA Ratio ICA/CCA PSV0.857 Signed 01/28/2017 05:18 PM Rodrigo Nance MD Procedure Note Interface, Radiology Results In - 01/28/2017 5:18 PM CDT Vascular Ultrasound Laboratory Carotid Artery Duplex Report [address] [address] For research associate quality control qc purposes, the categorization of the degree of the stenosis of this exam is based on criteria described in the IAC carotid stenosis grading white paper( www.intersocietal.org/Vascular) and Makenna Parson, Amy Macario, et al. Carotid artery stenosis: augustine-scale and Doppler US diagnosis--Society of Radiologists in Ultrasound Consensus Conference. Radiology. 2003 Apr; 229(2):340-6. Pat.Name: ERIC THOMAS.ID: [id number] .Date: 01/28/2017 Refer.MD: MARTHA ROD MD Exam Time: 11:00:00 AM Study Type:Carotid Age: 2 1970,46Y Sex: MALE Sonogrphr: Lenora Yanes RVT Pat. Stat.:Inpatient Tape Vol: SD, CPT - 4: 17426 Echo Event ID:[id number] Order ID: [id number] Reason for Study:Pre-operaive CV exam for renal transplant evaluation, Hx of DM, HTN, ESRD, Left arm AVF. Race: C SUMMARY: PHYSICAL ASSESSMENT Blood Pulses Carotid Pressure Carotid Temporal Bruit Right 164/84 + + 0 Left AV fistula + + 0 CAROTID ARTERY SCAN RIGHT: There is smooth intimal lining in the common carotid artery. There is hardplaque noted in the bulb extending into the proximal internal carotid artery.The external carotid artery is clear. Colorflow is normal. LEFT: There is intimal thickening in the common carotid artery. There is hardplaque noted in the bulb. The internal and external carotid artery is clear. Colorflow is normal. PRELIMINARY FINDINGS 1. <50% stenosis in the bulb/internal carotid artery. 2. Non stenotic hard plaque seen in the left bulb. 3. Increased velocity noted in the external carotid artery, bilaterally. Plaque is not seen. PHYSICIAN INTERPRETATION 1. Bilateral carotid artery examination demonstrates plaque in the bulbs and right internal carotid artery without hemodynamically significant stenosis. (<50%) Carotid Findings: Right Left Verteb.Flw Antegrade Antegrade Subclavian Triphasic AVF MEASUREMENTS: DOPPLER Right CCA Dist CCA Dist PSV 141 cm/s CCA Dist EDV 22 cm/s Right CCA Mid CCA Mid PSV 121 cm/s CCA Mid EDV 20.4 cm/s Right CCA Prox CCA Prox PSV 102 cm/s CCA Prox EDV 20.8 cm/s Right ECA ECA PSV 181 cm/s ECA EDV 0 cm/s Right ICA Dist ICA Dist PSV 64.9 cm/s ICA Dist EDV 23.1 cm/s Right ICA Mid ICA Mid PSV 113 cm/s ICA Mid EDV 22.1 cm/s Right ICA Prox ICA Prox PSV 123 cm/s ICA Prox EDV 29.9 cm/s Right Vertebral Vertebral PSV 46.9 cm/s Vertebral EDV 14.7 cm/s Left CCA Dist CCA Dist PSV 117 cm/s CCA Dist EDV 22.1 cm/s Left CCA Mid CCA Mid PSV 133 cm/s CCA Mid EDV 16.7 cm/s Left CCA Prox CCA Prox PSV 142 cm/s CCA Prox EDV 16.7 cm/s Left ECA ECA PSV 173 cm/s ECA EDV 0 cm/s Left ICA Dist ICA Dist PSV 64.6 cm/s ICA Dist EDV 15.8 cm/s ICA Mid ICA Mid PSV 122 cm/s ICA Mid EDV 27 cm/s Left ICA Prox ICA Prox PSV 114 cm/s ICA Prox EDV 19.5 cm/s Left Vertebral Vertebral PSV 49.9 cm/s Vertebral EDV 13.3 cm/s Right ECA Prox ECA Prox PSV 181 cm/s ECA Prox EDV 0 cm/s Left ECA Prox ECA Prox PSV 173 cm/s ECA Prox EDV 0 cm/s Right ICA/CCA Ratio ICA/CCA PSV 1.02 Left ICA/CCA Ratio ICA/CCA PSV 0.857 Signed 01/28/2017 05:18 PM Rodrigo Nance MD * Echocardiogram complete w contrast and 3D if needed (01/28/2017 10:48 AM) Specimen Performing Laboratory [facility] [address] [place] [address] Narrative Echocardiography Report [address] [place] [address] Pat.Name:ERIC THOMAS Pat.ID:[id number] .Date: 01/28/2017 Refer.MD:MARTHA ROD MD Exam Time: 10:01:00 AM Study Type:Routine Echo Height:67inWeight:199lb BSA: 2.02 m2 DOBAge:1970 ,46Y Sex: MALEBP: 164/86 Sonogrphr: Lynnette Ballesteros RDCS, RVT Pat. Stat.:Inpatient Room:[facility] Study Status:Final Echo Event ID:[id number] Order ID:[id number] Reason for Study:Myocardial ischemia/infarction History / Clinical:Diabetes, Hyperlipidemia, Hypertension, ESRD, Anemia Procedures:2D Echo, Colorflow Doppler Race:C SUMMARY: LV systolic function is normal. FINDINGS: LV: LV size is upper limits of normal. LV systolic function is normal.Overall wall motion is normal. Estimated EF is 60-64%. RV: RV size is normal. RV systolic function is normal. LA: LA volume is moderately enlarged. RA: RA size is normal. AO: Aortic root diameter is normal. NADIR: No pericardial effusion. AV: No structural AV abnormalities noted. MV: No structural MV abnormalities noted. PV: No structural PV abnormalities noted. TV: No structural TV abnormalities noted. Kaminski: LV relaxation is normal. LV filling pressure is normal. Other:Insufficient TR jet to estimate PA systolic pressure. No indirectsigns of increased pressure. MEASUREMENTS: 2D Parasternal [place] LVOT 2.2 cmLA Ds 3.7 cm LVIDd5.1 cmIndex 2.5 cm/m Ao An2.1 cm LVIDs3.5 cmAo Rtd 3.4 cm Index1.7 cm/m LV%fs 31.2 % LV Rqyj973.4 g(122-174) IVSd 1 cmLVM Index 97.3 g/m2 LVPWd1.1 cmRWT 0.4 LA Sng Plane LA Area 25.2 cm2(8.8-23.4) LA Vol87.3 ml Index43.2 ml/m LA LngAx 6 cm DOPPLER LVOT Stroke Vol LVOT 2.2 cmLVOT CO 7.2 l/min LVOT TVI20.7 cmLVOT CI 3.6 l/m/m2 LVOT Tm307 msecHR 92 bpm LVOT SV 78.6 ml MV E/A Ratio MV pkE99.3 cm/s (60-130) MV E/A 1.4 MV pkA71.7 cm/s Signed 01/28/2017 03:33 PM Aaron Virk M.D. Procedure Note Interface, Radiology Results In - 01/28/2017 3:34 PM CDT Echocardiography Report [address] [address] Pat.Name: ERIC THOMAS.ID: [id number] .Date: 01/28/2017 Refer.MD: MARTHA ROD MD Exam Time: 10:01:00 AM Study Type:Routine Echo Height: 67in Weight: 199lb BSA: 2.02 m2 Age: 2 1970,46Y Sex: MALE BP: 164/86 Sonogrphr: Lynnette Ballesteros RD, RVT Pat. Stat.:Inpatient Room: [facility] Study Status:Final Echo Event ID:[id number] Order ID: [id number] Reason for Study:Myocardial ischemia/infarction History / Clinical:Diabetes, Hyperlipidemia, Hypertension, ESRD, Anemia Procedures:2D Echo, Colorflow Doppler Race: C SUMMARY: LV systolic function is normal. FINDINGS: LV: LV size is upper limits of normal. LV systolic function is normal. Overall wall motion is normal. Estimated EF is 60-64%. RV: RV size is normal. RV systolic function is normal. LA: LA volume is moderately enlarged. RA: RA size is normal. AO: Aortic root diameter is normal. NADIR: No pericardial effusion. AV: No structural AV abnormalities noted. MV: No structural MV abnormalities noted. PV: No structural PV abnormalities noted. TV: No structural TV abnormalities noted. Kaminski: LV relaxation is normal. LV filling pressure is normal. Other: Insufficient TR jet to estimate PA systolic pressure. No indirect signs of increased pressure. MEASUREMENTS: 2D Parasternal [place] LVOT 2.2 cm LA Ds 3.7 cm LVIDd 5.1 cm Index 2.5 cm/m Ao An 2.1 cm LVIDs 3.5 cm Ao Rtd 3.4 cm Index 1.7 cm/m LV%fs 31.2 % LV Mass 196.4 g (122-174) IVSd 1 cm LVM Index 97.3 g/m2 LVPWd 1.1 cm RWT 0.4 LA Sng Plane LA Area 25.2 cm2 (8.8-23.4) LA Vol 87.3 ml Index 43.2 ml/m LA LngAx 6 cm DOPPLER LVOT Stroke Vol LVOT 2.2 cm LVOT CO 7.2 l/min LVOT TVI 20.7 cm LVOT CI 3.6 l/m/m2 LVOT Tm 307 msec HR 92 bpm LVOT SV 78.6 ml MV E/A Ratio MV pkE 99.3 cm/s (60-130) MV E/A 1.4 MV pkA 71.7 cm/s Signed 01/28/2017 03:33 PM Aaron Virk M.D. * Hemoglobin A1c (01/28/2017 9:05 AM) Component Value Ref Range Hemoglobin A1C 9.2 (H) 4.0 - 5.6 % Comment: HbA1c cutoffs for diagnosing diabetes: 4.0% - 5.6%=normal 5.7% - 6.4%=increased risk for diabetes (prediabetes) >=6.5%=diabetes Goals for glycemic control (ADA 2016) < 7.0% Target for non adults with diabetes. More or less stringent targets may be appropriate for individual patients. <7.5% Target for Children and adolescents with type 1 diabetes. Specimen Performing Laboratory Blood [facility] DEPARTMENT OF PATHOLOGY AND GENOMIC MEDICINE [address] [place] [address] * Comprehensive metabolic panel (01/28/2017 9:05 AM) Only the most recent of 2 results within the time period is included. Component Value Ref Range Sodium 139 135 - 148 mEq/L Potassium 4.4 3.5 - 5.0 mEq/L Chloride 98 98 - 112 mEq/L CO2 23 (L) 24 - 31 mEq/L Anion gap 18 (H) 7 - 15 mEq/L Comment: Starting from September , anion gap calculation no longer incorporates potassium. Please note the change. BUN 18 6 - 20 mg/dL Creatinine 6.2 (H) 0.7 - 1.2 mg/dL Glucose 105 (H) 65 - 99 mg/dL Calcium 7.5 (L) 8.3 - 10.2 mg/dL Protein 6.5 6.3 - 8.3 g/dL Comment: 4.6-7.0 g/dL 1 week 4.4-7.6 g/dL 7 months-1year 5.1-7.3 g/dL 1-2 years 5.6-7.5 g/dL >3 years 6.0-8.0 g/dL 18-150 6.3-8.3 g/dL Albumin 2.8 (L) 3.5 - 5.0 g/dL A/G ratio 0.8 0.7 - 3.8 Alkaline phosphatase 57 40 - 129 U/L AST 22 10 - 50 U/L ALT 14 5 - 50 U/L Total bilirubin 0.4 0.0 - 1.2 mg/dL Specimen Performing Laboratory Plasma specimen [facility] DEPARTMENT OF PATHOLOGY AND GENOMIC MEDICINE [address] [place] [address] * US Renal (12/01/2016 2:18 PM) Specimen Performing Laboratory [facility] [address] [place] [address] Narrative EXAMINATION:US RENAL CLINICAL HISTORY:N18.6 End stage renal disease, Renal Transplant Evaluation COMPARISON:None. FINDINGS: The kidneys are generally increased in echogenicity suggesting chronic renal disease.. There is no evidence of solid renal mass, stone or hydronephrosis. The right kidney fjefnthu84.3 x 5.9 x 5.8 cm. The left kidney rimqhmvv87.1 x 5.8 x 6.0 cm.. The urinary bladder is unremarkable. IMPRESSION: Signs of chronic renal disease.. [facility]-[id number] Procedure Note Interface, Radiology Results Incoming - 12/01/2016 4:11 PM CDT EXAMINATION: US RENAL CLINICAL HISTORY: N18.6 End stage renal disease, Renal Transplant Evaluation COMPARISON: None. FINDINGS: The kidneys are generally increased in echogenicity suggesting chronic renal disease.. There is no evidence of solid renal mass, stone or hydronephrosis. The right kidney measures 10.3 x 5.9 x 5.8 cm . The left kidney measures 10.1 x 5.8 x 6.0 cm. . The urinary bladder is unremarkable. IMPRESSION: Signs of chronic renal disease.. [facility]-[id number] * Echocardiogram complete w contrast and 3D if needed (12/01/2016 11:28 AM) Specimen Performing Laboratory [facility] [address] [facility] [place] [address] Narrative Echocardiography Report [address] [place] [address] Pat.Name:ERIC THOMAS Pat.ID:[id number] .Date: 12/01/2016 Refer.MD:BRIAN LANDEROS MD Exam Time: 9:50:00 AMStudy Type:Routine Echo Height:67inWeight:199lb BSA: 2.02 m2 DOBAge:1970 ,46Y Sex: MALEBP: 140/80 HR:88 bpm Sonogrphr: Florencia Solomon RDCS, RVT Pat. Stat.:OutpatientRoom:[facility] Study Status:Final Echo Event ID:[id number] Order ID:[id number] Reason for Study:Renal Transplant Evaluation History / Clinical:Diabetes, Hyperlipidemia, Hypertension, ESRD, Anemia Procedures:2D Echo, Colorflow Doppler, Intravenous Definity Contrast Race:C SUMMARY: LV size is normal. LV function is normal. FINDINGS: LV: LV size is normal. LV function is normal. Overall wall motionis normal. Estimated EF is 60-64%. RV: RV size is normal. RV function is normal. LA: LA size is normal. RA: RA size is normal. AO: Aortic root diameter is normal. NADIR: No pericardial effusion. AV: No structural AV abnormalities noted. MV: No structural MV abnormalities noted. PV: No structural PV abnormalities noted. TV: No structural TV abnormalities noted. Kaminski: LV relaxation is impaired. LV filling pressure is normal. Hepaticvein pressure is normal, RA pressure < 5mmHg. Other:Insufficient TR jet to estimate PA systolic pressure. MEASUREMENTS: 2D Parasternal [place] LVOT 2 cmLA Ds 4.2 cm LVIDd4.3 cmIndex 2.1 cm/m Ao An2.1 cm LVIDs2.9 cmAo Rtd 3.4 cm Index1.7 cm/m LV%fs 31.5 % LV Xbir418.9 g(122-174) IVSd 1.1 cmLVM Index 78.2 g/m2 LVPWd1.1 cmRWT 0.5 LA Sng Plane LA Area 29.3 cm2(8.8-23.4) LA Vol 104.8 ml Index51.9 ml/m LA LngAx 6.6 cm DOPPLER LVOT Stroke Vol LVOT 2 cmLVOT CO 5.3 l/min LVOT TVI19.3 cmLVOT CI 2.6 l/m/m2 LVOT Tm304 msecHR 88 bpm LVOT SV 60.5 ml Signed 12/01/2016 12:49 PM Shon Berman MD Procedure Note Interface, Radiology Results In - 12/01/2016 12:49 PM CDT Echocardiography Report [address] [place] [address] Pat.Name: ERIC THOMAS Pat.ID: [id number] .Date: 12/01/2016 Refer.MD: BRIAN LANDEROS MD Exam Time: 9:50:00 AM Study Type:Routine Echo Height: 67in Weight: 199lb BSA: 2.02 m2 Age: 2 1970,46Y Sex: MALE BP: 140/80 HR: 88 bpm Sonogrphr: Florencia Solomon RDCS, RVT Pat. Stat.:Outpatient Room: [facility] Study Status:Final Echo Event ID:[id number] Order ID: [id number] Reason for Study:Renal Transplant Evaluation History / Clinical:Diabetes, Hyperlipidemia, Hypertension, ESRD, Anemia Procedures:2D Echo, Colorflow Doppler, Intravenous Definity Contrast Race: C SUMMARY: LV size is normal. LV function is normal. FINDINGS: LV: LV size is normal. LV function is normal. Overall wall motion is normal. Estimated EF is 60-64%. RV: RV size is normal. RV function is normal. LA: LA size is normal. RA: RA size is normal. AO: Aortic root diameter is normal. NADIR: No pericardial effusion. AV: No structural AV abnormalities noted. MV: No structural MV abnormalities noted. PV: No structural PV abnormalities noted. TV: No structural TV abnormalities noted. Kaminski: LV relaxation is impaired. LV filling pressure is normal. Hepatic vein pressure is normal, RA pressure < 5mmHg. Other: Insufficient TR jet to estimate PA systolic pressure. MEASUREMENTS: 2D Parasternal [place] LVOT 2 cm LA Ds 4.2 cm LVIDd 4.3 cm Index 2.1 cm/m Ao An 2.1 cm LVIDs 2.9 cm Ao Rtd 3.4 cm Index 1.7 cm/m LV%fs 31.5 % LV Mass 157.9 g (122-174) IVSd 1.1 cm LVM Index 78.2 g/m2 LVPWd 1.1 cm RWT 0.5 LA Sng Plane LA Area 29.3 cm2 (8.8-23.4) LA Vol 104.8 ml Index 51.9 ml/m LA LngAx 6.6 cm DOPPLER LVOT Stroke Vol LVOT 2 cm LVOT CO 5.3 l/min LVOT TVI 19.3 cm LVOT CI 2.6 l/m/m2 LVOT Tm 304 msec HR 88 bpm LVOT SV 60.5 ml Signed 12/01/2016 12:49 PM Shon Berman MD * A1 antigen patient typing (10/22/2016 1:04 PM) Component Value Ref Range A1 Antigen Patient Typing POS Specimen Performing Laboratory [facility] DEPARTMENT OF PATHOLOGY AND GENOMIC MEDICINE [address] [place] [address] * Syphilis treponemal IgG (10/22/2016 1:04 PM) Component Value Ref Range Syphilis treponemal IgG Non-reactiveComment: Non-reactive: No serological Non-reactive evidence of Syphilis infection Specimen Performing Laboratory Serum [facility] DEPARTMENT OF PATHOLOGY AND [facility] [address] [place] [address] * Nicotine and metabolites, serum (10/22/2016 1:04 PM) Component Value Ref Range Nicotine <2.0 0.0 - 2.0 ng/mL Cotinine <2.0 0.0 - 2.0 ng/mL 8-LM-fzjkyutf <5.0 0.0 - 5.0 ng/mL Comment: This test was developed and its performance characteristics determined by the Department of Pathology and Genomic Medicine, [facility]. Serum nicotine and its metabolites cotinine and 3-CV-pvxmctlf are tested by HPLC tandem mass spectrometry. It has not been cleared or approved by FDA. The laboratory is regulated under CLIA as qualified to perform high-complexity testing. This test is used for clinical purposes. It should not be regarded as investigational or for research. Specimen Performing Laboratory Blood [facility] OF PATHOLOGY AND GENOMIC MEDICINE [address] [place] [address] * Hepatitis B surface Ab, quantitative (10/22/2016 1:04 PM) Component Value Ref Range Hepatitis B surface Ab 57.56 IU/L Comment: The anti-HBs is greater than or equal to 10 IU/L. This patient has either had an antibody response to HBV vaccination, received a transfusion, or has recovered from HBV infection. This patient should be considered immune to hepatitis B. An anti-HBs result greater than or equal to 10 IU/L implies immunity. For post-vaccination antibody testing guidelines for the general public refer to MMWR June 05, 2005/Vol. 54(No. 16);07-06, and for healthcare workers refer to MMWR June 02, 2013/Vol. 62(No. 10);07-02. Reference Interval: anti-HBs 9.99 IU/L or less ....... Negative 10.00 IU/L or greater .... Positive Results greater than 1,000.00 IU/L are reported as greater than 1,000.00 IU/L. Performed by [facility], [address] [place] [phone] www.[employer], Elias Arroyo MD - Lab. Director Specimen Performing Laboratory Serum [facility] [address] [place] [phone] * Hepatitis C antibody (10/22/2016 1:04 PM) Component Value Ref Range Hepatitis C Ab Non-reactive Non-reactive Specimen Performing Laboratory Blood [facility] DEPARTMENT OF PATHOLOGY AND GENOMIC MEDICINE [address] [place] [address] * Hepatitis A antibody total (10/22/2016 1:04 PM) Component Value Ref Range Hepatitis A total Ab Non-reactive Non-reactive Specimen Performing Laboratory Blood [facility] DEPARTMENT OF PATHOLOGY AND GENOMIC MEDICINE [address] [place] [address] * Drug torres 9, ser/bertha, scrn w/rflx to conf (10/22/2016 1:04 PM) Component Value Ref Range Amphetamines, s/p, screen Negative Cutoff 30 ng/mL Methamphetamine, s/p, Negative Cutoff 30 ng/mL screen Barbiturates, s/p, screen Negative Cutoff 75 ng/mL Benzodiazepines, s/p, Negative Cutoff 75 ng/mL screen Cocaine, s/p, screen Negative Cutoff 30 ng/mL Methadone, s/p, screen Negative Cutoff 40 ng/mL Opiates, s/p, screen Negative Cutoff 30 ng/mL Oxycodone, s/p, screen Negative Cutoff 30 ng/mL Phencyclidine, s/p, Negative Cutoff 15 ng/mL screen Cannabinoids, s/p, screen Negative Cutoff 30 ng/mL Drug screen comments, See Note serum Comment: INTERPRETIVE INFORMATION: Drug Screen 9 Panel, Serum or Plasma - Immunoassay Screen with Reflex to Mass Spectrometry Confirmation/Quantitation 1. Methodology: Qualitative Immunoassay Screen 2. Drugs/Drug classes reported as "Positive" are automatically reflexed to mass spectrometry confirmation/quantitation testing. An immunoassay unconfirmed positive screen result may be useful for medical purposes but does not meet forensic standards. 3. The absence of expected drug(s) and/or drug metabolite(s) may indicate non-compliance, inappropriate timing of specimen collection relative to drug administration, poor drug absorption, or limitations of testing. The concentration at which the screening test can detect a drug or metabolite varies within a drug class. Specimens for which drugs or drug classes are detected by the screen are automatically reflexed to a second, more specific technology (mass spectrometry). The concentration value must be greater than or equal to the cutoff to be reported as positive. Interpretive questions should be directed to the laboratory. 4. For medical purposes only; not valid for forensic use. Test developed and characteristics determined by [facility]. See Compliance Statement B: [employer]/CS Performed by [facility], [address] [place] [phone] www.[employer], Elias Arroyo MD - Lab. Director Specimen Performing Laboratory Serum [facility] [address] [place] [id number] * ABORh - transplant (10/22/2016 1:04 PM) Component Value Ref Range ABO grouping A Rh type POS Specimen Performing Laboratory Blood [facility] DEPARTMENT OF PATHOLOGY AND GENOMIC MEDICINE [address] [place], [place] [id number] * Hepatitis B core antibody total (10/22/2016 1:04 PM) Component Value Ref Range Hepatitis B core total Ab Non-reactive Non-reactive Specimen Performing Laboratory Blood [facility] DEPARTMENT OF PATHOLOGY AND GENOMIC MEDICINE [address] [place], [place] [id number] * C-peptide (10/22/2016 1:04 PM) Component Value Ref Range C-peptide 8.6 (H) 1.1 - 4.4 ng/mL Specimen Performing Laboratory Plasma specimen [facility] DEPARTMENT OF PATHOLOGY AND GENOMIC MEDICINE [address] [place], [place] [id number] * HIV 1, 2 antibody (10/22/2016 1:04 PM) Component Value Ref Range HIV 1, 2 antibody Non-reactive Non-reactive Comment: Starting from September 10 2015, 4th generation HIV screening and confirmation assays are in use at [facility], consistent with the CDC-recommended algorithm. The screening test detects antibodies to HIV-1, HIV-2 and the p24 antigen. Positive screening results will be automatically reflexed to a HIV-1/HIV-2 differentiation assay. Indeterminant HIV-1 results will be further automatically reflexed to a nucleic acid test for detection of acute infection. Western blot will no longer be performed as a confirmation test. For a quick reference guide on the testing algorithm, please refer to: http://stacks.cdc.gov/view/cdc/28157. Specimen Performing Laboratory Blood [facility] DEPARTMENT OF PATHOLOGY AND GENOMIC MEDICINE [address] [place] [address] * Hepatitis B surface antibody (10/22/2016 1:04 PM) Component Value Ref Range Hepatitis B surface Ab Reactive (A) Non-reactive Specimen Performing Laboratory Blood [facility] DEPARTMENT OF PATHOLOGY AND GENOMIC MEDICINE [address] [place] [id number] after 08/29/2016 Insurance Payer Benefit Subscriber ID Type Phone Address Plan / Group HUMANA MEDICARE HUMANA HMO xxxxxxxxx HMO GOLD PLUS MEDICARE ERIC THOMAS Transplant Self 1970 Home: [id number] [place] [address]
--- OUTSIDE RECORDS SUMMARY | 2017-08-30 00:50 | XMS REPORT | Clinical Summary ---
Author Author [place] [employer] [place] [employer] Address Unknown Phone Unavailable Care Team Providers Care Ballaster Name Role Phone Asked, Pcp PCP Unavailable [...] to schedule him for his appts.) 02/14/2017 [facility] Cardiovascular Martha Rod MD Coronary artery disease - Encounter of [place] artery of 02/17/2017 [place] heart with stable angina pectoris (Primary Dx); ESRD (end stage renal disease) 02/01/2017 Anesthesia Cardiothoracic Surgery Akbar Cota MD Event 02/01/2017 Procedure Pass Cardiothoracic Surgery 02/01/2017 Surgery Cardiothoracic Surgery Martha Rod MD Cabg x3, COLEY to LAD, SVG to RCA, SVG to OM; Endarterectomy of RCA and OM 01/27/2017 [facility] Cardiology Martha Rod MD S/P CABG ( coronary artery - Encounter bypass graft) (Primary 02/12/2017 Dx); Coronary arteriosclerosis; 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 [place] heart with stable angina pectoris 01/27/2017 Telephone Transplant Radha Montalvo R/S Day 2 Kidney ( Called pts back to r/s her for his day 2 appt since he was admitted to the hospital was not able to leave a message due to mailbox not set up yet.) 01/26/2017 Documentation Transplant Barrington Campbell - [facility] HMO - RENAL EVAL APPRVL 01/25/2017 Telephone [...] his appts.) 12/30/2016 Documentation Transplant Lillie Lopez, MANAGER SUPPORT SERVICES 12/22/2016 Documentation Transplant Barrington Campbell - MCR AB ONLY - RENAL EVAL APPRVL 12/01/2016 [facility] Radiology Brian Landeros MD ESRD [...] Documentation Transplant Barrington Campbell TXP - [facility] HMO - RENAL EVAL APPRVL 11/22/2016 [facility] Clotilde Oscar MD Encounter 11/02/2016 [...] 10/05/2016 Telephone Transplant Netta Campbell RN recalling senior telecommunications consultant 10/05/2016 Telephone Transplant María Elena Kong MA [...] INFLUENZA VACCINE 01/12/2017 Implants Implanted Type Area Hardboard Press Operator Device Expiration Model / Identifier Date Serial / Lot Lead Pace Ravindra Mycrdl Unipol Tmpry Cardiovasc N/A: N/A [employer] [facility] - 07/30/2018 [id number] / Streamline - [id number] - [id number] ulmd CARDIAC SRGRY [id number] / Implanted: Qty: 2 on 02/01/2017 by Implants [id number] Martha Rod MD Patch Biosurg Selnt Fibrin Absrbl Surgical N/A: N/A GARZA [id number] / 9.5x4.8cm Tachosil - [id number] Implants; BIOSCIENCE / Implanted: 02/01/2017 (Quantity not Expanders; on file) Extenders; Surgical Wires [place] Perph Vasclr Ptfe 1.2x10cm Vascular N/A: N/A BARD PERIPHERAL [id number] / 1.65mm - [id number] - [id number] Graft VASCULAR [id number] / Implanted: Qty: 1 on 02/01/2017 by [id number] Payton MD Procedures Procedure Name Priority Date/Time Associated Diagnosis Comments HEMODIALYSIS Routine 02/17/2017 8:16 AM CDT ECHOCARDIOGRAM 2D STAT 02/15/2017 Results for this COMPLETE W MMODE SPECTRAL 12:30 AM CDT procedure are in the COLOR DOPPLER (80918) results section. HEMODIALYSIS Routine 02/14/2017 9:51 PM CDT HEMODIALYSIS Routine 02/12/2017 11:43 AM CDT HEMODIALYSIS Routine 02/11/2017 8:51 AM CDT ECHOCARDIOGRAM 2D Routine 02/09/2017 Results for this COMPLETE W MMODE SPECTRAL 4:07 PM CDT procedure are in the COLOR DOPPLER (04376) results section. HEMODIALYSIS Routine 02/09/2017 8:21 AM [...] procedure well with no immediate complicati ons NH AN ELECTIVE Routine 02/01/2017 ENDOTRACHEAL AIRWAY 12:37 [...] CDT procedure are in the COLOR DOPPLER (70403) results section. ECHOCARDIOGRAM 2D Routine 12/01/2016 ESRD (end stage renal Results for this COMPLETE W MMODE SPECTRAL 11:28 AM CDT disease) procedure are in the COLOR DOPPLER (80885) results section. after 08/29/2016 Results * POC glucose (02/17/2017 9:10 AM) Only the most recent of 95 results within the time period is included. Component Value Ref Range POC glucose 138 (H) 65 - 99 mg/dL Comment: Meter ID: [id number] Stone Hand: Fuad Tobin Specimen Performing Laboratory [facility] DEPARTMENT OF PATHOLOGY AND GENOMIC MEDICINE [address] [place], [place] [id number] * CBC hemogram (02/17/2017 4:45 AM) Only [...] 0.00 /100 WBC Specimen Performing Laboratory Blood [facility] DEPARTMENT OF PATHOLOGY AND GENOMIC MEDICINE [address] [place] [address] * Ionized calcium (02/17/2017 4:45 AM) Only the most recent of 2 results within the time period is included. Component Value Ref Range pH 7.51 Ionized calcium 1.00 (L) 1.11 - 1.32 mmol/L Specimen Performing Laboratory Plasma specimen [facility] DEPARTMENT OF PATHOLOGY AND GENOMIC MEDICINE [address] [place] [address] * Estimated GFR (02/17/2017) Only the most [...] and Americans. Specimen Performing Laboratory Plasma specimen [facility] [place] [address] * Phosphorus level (02/17/2017) Only the most recent of 5 results within the time period is included. Component Value Ref Range Phosphorus 4.9 (H) 2.4 - 4.5 mg/dL Specimen Performing Laboratory Plasma specimen [facility] [place] [address] * Magnesium level (02/17/2017) Only the most recent of 7 results within the time period is included. Component Value Ref Range Magnesium 2.4 1.6 - 2.6 mg/dL Specimen Performing Laboratory Plasma specimen [facility] [place] [address] * Basic metabolic panel (02/17/2017) Only the [...] 10.2 mg/dL Specimen Performing Laboratory Plasma specimen [facility] [place] [address] * XR Chest 1 Vw Portable (02/16/2017 11:10 AM) Only the most recent of 4 results within the time period is included. Specimen Performing Laboratory [facility] [address] [place], [place] [phone] Narrative EXAMINATION:XR CHEST 1 VW PORTABLE CLINICAL HISTORY:post thora COMPARISON:02/14/2017 chest IMPRESSION: Improving left pleural effusion with mild residual costophrenic angle fluid Hypoinflation without focal infiltrate or congestion Mild patchy bibasilar atelectasis. Cardiomediastinal silhouette normal size. Sternotomy wires as before. Right IJ dialysis catheter right atrial level [id number] Procedure Note Interface, Radiology Results Incoming - 02/16/2017 11:16 AM CDT EXAMINATION: XR CHEST 1 VW PORTABLE CLINICAL HISTORY: post thora COMPARISON: 02/14/2017 chest IMPRESSION: Improving left pleural effusion with mild residual costophrenic angle fluid Hypoinflation without focal infiltrate or congestion Mild patchy bibasilar atelectasis. Cardiomediastinal silhouette normal size. Sternotomy wires as before. Right IJ dialysis catheter right atrial level [id number] * US Thoracentesis With Imaging (02/16/2017 10:21 AM) Specimen Performing Laboratory [facility] [address] [place] [address] Narrative EXAMINATION:US THORACENTESIS WITH IMAGING CLINICAL HISTORY: [...] was used for local anesthesia. A 5 Ukrainian Yueh catheter was inserted into the pleural space and 1.2 L of sanguinous pleural fluid was removed.Post procedure images reveal no significant residual effusion. The patient tolerated the procedure without difficulty and was discharged to the radiology recovery area for postprocedure chest x-ray prior to discharge. EBL: None. COMPLICATIONS: None. SPECIMENS: As above. ASSISTANTS: None. IMPRESSION: Technically successful ultrasound-guided left-sided therapeutic thoracentesis. [facility]-[id number] Procedure Note Interface, Radiology Results Incoming - [...] was used for local anesthesia. A 5 Ukrainian Yueh catheter was inserted into the pleural space and 1.2 L of sanguinous pleural fluid was removed. Post procedure images reveal no significant residual effusion. The patient tolerated the procedure without difficulty and was discharged to the radiology recovery area for postprocedure chest x-ray prior to discharge. EBL: None. COMPLICATIONS: None. SPECIMENS: As above. ASSISTANTS: None. IMPRESSION: Technically successful ultrasound-guided left-sided therapeutic thoracentesis. [facility]-[id number] * Partial thromboplastin time, activated (02/16/2017 2:35 AM) Only the most recent of 4 results within the time period is included. Component Value Ref Range PTT 33.9 23.0 - 36.0 sec Comment: PTT therapeutic range for unfractionated heparin is 61.0-112.0 seconds which corresponds to Anti-Xa 0.3-0.7 U/ml. Specimen Performing Laboratory Blood [facility] DEPARTMENT OF PATHOLOGY AND GENOMIC MEDICINE [address] [place], [place] [address] * Prothrombin time with INR (02/16/2017 2:35 [...] vein thrombosis/pulmonary embolism. Specimen Performing Laboratory Blood [facility] DEPARTMENT OF PATHOLOGY AND GENOMIC MEDICINE [address] [place] [address] * US Chest (02/15/2017 7:41 AM) Specimen Performing Laboratory [facility] [address] [place] [address] Narrative EXAMINATION:US CHEST CLINICAL HISTORY: Pleural effusiondiagnosislocalization for thoracentesis COMPARISON:None. FINDINGS: Limited ultrasound of the chest demonstrates no significant pleural effusion on the right side. There is a large left-sided pleural effusion with calculated volume of approximately 1 L. IMPRESSION: As above [facility]-[id number] Procedure Note Interface, Radiology Results Incoming - 02/15/2017 8:39 AM CDT EXAMINATION: US CHEST CLINICAL HISTORY: Pleural effusion diagnosis localization for thoracentesis COMPARISON: None. FINDINGS: Limited ultrasound of the chest demonstrates no significant pleural effusion on the right side. There is a large left-sided pleural effusion with calculated volume of approximately 1 L. IMPRESSION: As above [facility]-[id number] * Echocardiogram complete w contrast and 3D if needed (02/15/2017 12:30 AM) Specimen Performing Laboratory [facility] [address] [place] [address] Narrative Echocardiography Report [address] [address], [place] [address] Pat.Name:ERIC THOMAS Pat.ID:[id number] .Date: 02/14/2017Refer.MD:MARTHA ROD MD Exam Time: 9:46:00 PMStudy Type:Routine Echo Height:68inWeight:201lb BSA: 2.05 m2 DOBAge:1970 ,46Y Sex: MALEBP: 164/82 HR:90 bpmSonogrphr: Delia Tariq RDCS, RVT Pat. Stat.:Inpatient Room:[place] [address] Study Status:Final Echo Event ID:[id number] Order ID:[id number] Reason for Study:Ventricular Function after ACS- Re-eval [...] detected by Doppler. MEASUREMENTS: 2D Parasternal [place] LVOT 1.8 cmLA Ds 3.2 cm LVIDd3.9 cmIndex 1.9 cm/m Ao An1.8 cm LVIDs2 cmAo Rtd 3.5 cm Index1.7 cm/m LV%fs 48.7 % LV Ylsq348.7 g(122-174) IVSd 1.4 cmLVM Index 87.7 g/m2 LVPWd1.2 cmRWT 0.6 LA Sng Plane LA Area 23.1 cm2(8.8-23.4) LA Vol84.2 ml Index41.1 ml/m LA LngAx 4.8 cm Signed 02/15/2017 10:47 AM Donn Partida M.D. Procedure Note Interface, Radiology Results In - 02/15/2017 10:47 AM CDT Echocardiography Report [address] [address] Pat.Name: ERIC THOMAS.ID: [id number] .Date: 02/14/2017 Refer.MD: MARTHA ROD MD Exam Time: 9:46:00 PM Study Type:Routine Echo Height: 68in Weight: 201lb BSA: 2.05 m2 Age: 2 1970,46Y Sex: MALE BP: 164/82 HR: 90 bpm Sonogrphr: Delia Tariq RDCS, RVT Pat. Stat.:Inpatient Room: [place] [address] Study Status:Final Echo Event ID:[id number] Order ID: [id number] Reason for Study:Ventricular Function after ACS- Re-eval [...] detected by Doppler. MEASUREMENTS: 2D Parasternal [place] LVOT 1.8 cm LA Ds 3.2 cm [...] Range Ventricular rate 92 Atrial rate 92 NH interval 142 QRSD interval 84 QT interval 366 QTC interval 452 P axis 1 57 QRS axis 1 18 T wave axis 93 EKG impression Normal sinus rhythm-Inferior infarct (cited on or before 03-FEB-2017)-T wave abnormality, consider lateral ischemia-Abnormal ECG- Specimen Performing Laboratory [facility] [address] [facility] [place] [address] * Troponin (02/14/2017 9:00 PM) Component Value [...] acute myocardial injury. Specimen Performing Laboratory Blood [facility] DEPARTMENT OF PATHOLOGY AND [facility] MEDICINE [address] [place] [address] * CBC with platelet and differential (02/14/2017 [...] (promyelocytes, myelocytes, metamyelocytes) Specimen Performing Laboratory Blood [facility] DEPARTMENT OF PATHOLOGY AND [address] [address] * Type and screen (02/14/2017 9:00 PM) Only the most recent of 4 results within the time period is included. Component Value Ref Range ABO grouping A Rh type POS Antibody screen (gel) NEG Specimen Performing Laboratory Blood [facility] DEPARTMENT OF PATHOLOGY AND [address] [address] * B natriuretic peptide (02/14/2017 9:00 PM) Component Value Ref Range BNP 630 (H) 0 - 100 pg/mL Specimen Performing Laboratory Blood [facility] DEPARTMENT OF PATHOLOGY AND [facility] [address] [place] [address] * Lipase level (02/14/2017 9:00 PM) Only the most recent of 2 results within the time period is included. Component Value Ref Range Lipase 33 13 - 60 U/L Specimen Performing Laboratory Blood [facility] DEPARTMENT OF PATHOLOGY AND [facility] [address] [place] [address] * Lactic acid level (02/14/2017 9:00 PM) Component Value Ref Range Lactic acid 1.3 0.5 - 2.2 mmol/L Specimen Performing Laboratory Blood [facility] DEPARTMENT OF PATHOLOGY AND [facility] [address] [place] [address] * Amylase level (02/14/2017 9:00 PM) Only the most recent of 2 results within the time period is included. Component Value Ref Range Amylase 34 13 - 53 U/L Specimen Performing Laboratory Blood [facility] DEPARTMENT [place] [address] * Hepatic function panel (02/14/2017 9:00 PM) [...] - 50 U/L Specimen Performing Laboratory Blood [facility] DEPARTMENT OF PATHOLOGY AND [facility] [address] [place] [address] * Echocardiogram complete w contrast and 3D if needed (02/09/2017 4:07 PM) [facility] [address] [place] [address] Narrative Echocardiography Report [address] [place] [address] Pat.Name:ERIC THOMAS.ID:[id number] .Date: 02/09/2017 Refer.MD:MARTHA ROD MD Exam Time: 3:00:00 PMStudy Type:Routine Echo Height:67inWeight:205lb BSA: 2.05 m2 DOBAge:1970 ,46Y Sex: MALEBP: 102/70 HR:80 bpm Sonogrphr: ESTELLA Vela [facility]. Stat.:Inpatient Room:[facility] Study Status:Final Echo Event ID:[id number] Order ID:[id number] Reason for Study:s/p CABG History / Clinical:Diabetes, [...] PA systolic pressure. MEASUREMENTS: 2D Parasternal [place] LA Ds3.4 cmLVPWd 1.2 cm Ao Rtd 3.5 cmIndex 1.7 cm/m LV Kryo651.1 g(122-174) LVIDd4 cmIndex 2 cm/m LVM Index 73.7 g/m2 IVSd 1.1 cmRWT 0.6 LA Sng Plane LA Area 21.6 cm2(8.8-23.4) LA Vol65.6 ml Index32 ml/m LA LngAx 6.4 cm Signed 02/09/2017 04:47 PM Gabino Washington M.D. Procedure Note Interface, Radiology Results In - 02/09/2017 4:47 PM CDT Echocardiography Report [address] [place] [address] Pat.Name: ERIC THOMAS Pat.ID: [id number] .Date: 02/09/2017 Refer.MD: MARTHA ROD MD Exam Time: 3:00:00 PM Study Type:Routine Echo Height: 67in Weight: 205lb BSA: 2.05 m2 Age: 2 1970,46Y Sex: MALE BP: 102/70 HR: 80 bpm Sonogrphr: ESTELLA Vela Pat. Stat.:Inpatient Room: [facility] Study Status:Final Echo Event ID:[id number] Order ID: [id number] Reason for Study:s/p CABG History / Clinical:Diabetes, [...] PA systolic pressure. MEASUREMENTS: 2D Parasternal [place] LA Ds 3.4 cm LVPWd 1.2 cm [...] Red Cells AS1 Leukored Irrad Unit number [id number] Product code [id number] Dispense status Transfused Blood expiration date 20170301 Blood type code 6200 Blood type A POSITIVE Product name Red Cells AS1 Leukored Irrad Unit number [id number] Product code [id number] Dispense status Transfused Blood expiration date 20170223 Blood type code 6200 Blood type A POSITIVE Specimen Performing Laboratory [facility] DEPARTMENT OF PATHOLOGY AND GENOMIC MEDICINE [address] [place] [address] * Vitamin D 25 hydroxy level (02/03/2017 [...] for alternative methods. Specimen Performing Laboratory Blood [facility] DEPARTMENT OF PATHOLOGY AND GENOMIC MEDICINE [address] [place] [address] * Line/Drain Removal (02/02/2017 1:08 PM) Zachary [...] - 100 % Specimen Performing Laboratory Blood [facility] DEPARTMENT OF PATHOLOGY AND GENOMIC MEDICINE [address] [place] [address] * Ionized calcium, arterial (02/01/2017 8:30 PM) Only the most recent of 9 results within the time period is included. Component Value Ref Range Ionized calcium, arterial 1.27 1.11 - 1.32 mmol/L Specimen Performing Laboratory Blood [facility] [place]MENT [place] [address] * Sodium level, syringe (02/01/2017 7:19 PM) Only the most recent of 8 results within the time period is included. Component Value Ref Range Sodium, syringe 132 (L) 135 - 148 mEq/L Specimen Performing Laboratory Blood [facility] [place] [address] * Potassium, syringe (02/01/2017 7:19 PM) Only the most recent of 8 results within the time period is included. Component Value Ref Range Potassium, syringe 5.1 (H) 3.5 - 5.0 mEq/L Specimen Performing Laboratory Blood [facility] [place] [address] * Hemoglobin, syringe (02/01/2017 7:19 PM) Only the most recent of 8 results within the time period is included. Component Value Ref Range Hemoglobin, syringe 7.0 (LL) 14.0 - 18.0 g/dL Specimen Performing Laboratory Blood [facility] [place] [address] * Glucose level, syringe (02/01/2017 7:19 PM) Only the most recent of 8 results within the time period is included. Component Value Ref Range Glucose, syringe 180 (H) 65 - 99 mg/dL Specimen Performing Laboratory Blood [facility] [place] [address] * Arterial blood gas, corrected (02/01/2017 7:19 [...] - 2 mEq/L Specimen Performing Laboratory Blood [facility] [place] [address] * Rotational thromboelastometry (02/01/2017 6:25 PM) Only [...] fibrinolytic activity. Specimen Performing Laboratory Plasma specimen [facility] DEPARTMENT OF PATHOLOGY AND GENOMIC MEDICINE [address] [place] [address] * Fibrinogen (02/01/2017 6:22 PM) Only the most recent of 2 results within the time period is included. Component Value Ref Range Fibrinogen 335 200 - 450 mg/dL Specimen Performing Laboratory Blood [facility] DEPARTMENT OF PATHOLOGY AND GENOMIC MEDICINE [address] [place] [address] * Platelet count (02/01/2017 6:22 PM) Only the most recent of 2 results within the time period is included. Component Value Ref Range Platelet count 111 (L) 150 - 400 k/uL Specimen Performing Laboratory [facility] DEPARTMENT OF PATHOLOGY AND GENOMIC MEDICINE [address] [place] [address] * Total iron binding capacity (02/01/2017 10:50 AM) Component Value Ref Range Iron level 46 (L) 59 - 158 ug/dL Iron binding capacity 201 200 - 400 ug/dL % Saturation 22.9 20.0 - 40.0 % Specimen Performing Laboratory Plasma specimen [facility] DEPARTMENT OF PATHOLOGY AND [facility] [address] [place] [address] * Ferritin level (02/01/2017 10:50 AM) Component Value Ref Range Ferritin level 1,124 (H) 30 - 400 ng/mL Specimen Performing Laboratory Plasma specimen [facility] DEPARTMENT OF PATHOLOGY AND [facility] [address] [place] [address] * Surgical pathology request (02/01/2017 8:52 AM) Component Value Ref Range Surgical pathology report See link below for PDF Lab Report Specimen Performing Laboratory [facility] DEPARTMENT OF PATHOLOGY [facility] GENOMIC MEDICINE [address] [place] [address] * Prepare platelet pheresis (02/01/2017 2:45 AM) Component Value Ref Range Product name Apheresis Platelet ACDA LRIRR #1 Unit number [id number] Product code [id number] Dispense status Transfused Blood expiration date 20170202 Blood type code 5100 Blood type O POSITIVE Product name Apheresis Platelet ACDA LRIRR #1 Unit number [id number] Product code [id number] Dispense status Transfused Blood expiration date 20170202 Blood type code 5100 Blood type O POSITIVE Specimen Performing Laboratory [facility] DEPARTMENT OF PATHOLOGY [facility] [address] [place] [address] * Hepatitis B surface antigen (01/29/2017 5:47 PM) Only the most recent of 2 results within the time period is included. Component Value Ref Range Hepatitis B surface Ag Non-reactive Non-reactive Specimen Performing Laboratory Blood [facility] DEPARTMENT OF PATHOLOGY AND GENOMIC MEDICINE [address] [place] [address] * Urea nitrogen, urine, random (01/28/2017 5:45 PM) Component Value Ref Range Urea nitrogen, urine, 142 mg/dL random Specimen Performing Laboratory Urine [facility] DEPARTMENT OF PATHOLOGY AND GENOMIC MEDICINE [address] [place] [address] * Protein, urine, random (01/28/2017 5:45 PM) Component Value Ref Range Protein, urine random 1,090 mg/dL Specimen Performing Laboratory Urine [facility] DEPARTMENT OF PATHOLOGY AND GENOMIC MEDICINE [address] [place] [address] * Creatinine level, urine, random (01/28/2017 5:45 PM) Component Value Ref Range Creatinine, urine, random 69 mg/dL Specimen Performing Laboratory Urine [facility] DEPARTMENT OF PATHOLOGY AND GENOMIC MEDICINE [address] [place] [address] * Urinalysis, automated with microscopy (01/28/2017 5:45 [...] None seen UA Specimen Performing Laboratory Urine [facility] DEPARTMENT OF PATHOLOGY AND GENOMIC MEDICINE [address] [place] [address] * XR Chest 2 Vw (01/28/2017 4:03 PM) Only the most recent of 2 results within the time period is included. Specimen Performing Laboratory [facility] [address] [place] [address] Narrative Examination:XR CHEST 2 VW Clinical History: Chest Pain, pre op surg Comparison: December 01, 2016 Technique: Frontal and lateral views of the chest Impression: Dialysis catheter. Courses to the right HM. No pulmonary consolidation or pleural effusion. Heart size and partly vascularity grossly normal. Bones are intact. No evidence of acute process. [facility]-[id number] Procedure Note Interface, Radiology Results Incoming - [...] are intact. No evidence of acute process. [facility]-[id number] * Pv carotid duplex (01/28/2017 11:35 AM) Only the most recent of 2 results within the time period is included. Specimen Performing Laboratory [facility] [address] [place] [address] Narrative Vascular Ultrasound Laboratory Carotid Artery Duplex Report [address] [place] [address] For quality assurance/r&d lab technician purposes, the categorization of the degree of the stenosis of this exam is based on criteria described in the IAC carotid stenosis grading white paper( www.intersocietal.org/Vascular) and Evaristo Parson., Amy Macario, et al. Carotid artery stenosis: augustine-scale and Doppler US diagnosis--Society of Radiologists in Ultrasound Consensus Conference. Radiology. 2003 Nov; 229(2):340-6. Pat.Name:ERIC THOMAS Pat.ID:[id number] .Date: 01/28/2017 Refer.MD:MARTHA ROD MD Exam Time: 11:00:00 AM Study Type:Carotid DOBAge:1970,46YSex: MALE Sonogrphr: Lenora Yanes RVT Pat. Stat.:Inpatient TapeVol: SD, CPT - 4: 59243 Echo Event ID:[id number] Order ID:[id number] Reason for Study:Pre-operaive CV exam for renal [...] cm/ s Right CCA Mid CCA Mid [id number] cm/sCCA Mid EDV 20.4 cm/ s Right CCA Prox CCA Prox PSV 102 cm/sCCA Prox EDV20.8 cm/s Right ECA ECA [id number] cm/sECA EDV 0 cm/s Right ICA Dist ICA Dist PSV64.9 cm/Capri Dist EDV23.1 cm/s Right ICA Mid ICA Mid [id number] cm/Capri Mid EDV 22.1 cm/ s Right ICA Prox ICA Prox PSV 123 cm/Capri Prox EDV29.9 cm/s Right Vertebral Vertebral PSV 46.9 cm/sVertebral EDV 14.7 cm/s Left CCA Dist CCA Dist PSV 117 cm/sCCA Dist EDV22.1 cm/s Left CCA Mid CCA Mid [id number] cm/sCCA Mid EDV 16.7 cm/ s Left CCA Prox CCA Prox PSV 142 cm/sCCA Prox EDV16.7 cm/s Left ECA ECA IFP398 cm/sECA EDV 0 cm/s Left ICA Dist ICA Dist PSV64.6 cm/Capri Dist EDV15.8 cm/s ICA Mid ICA Mid [id number] cm/Capri Mid EDV 27 cm/s Left ICA Prox ICA Prox PSV 114 cm/aCpri Prox EDV19.5 cm/s Left Vertebral Vertebral PSV [...] Ultrasound Laboratory Carotid Artery Duplex Report [id number] [address] For quality assurance/r&d lab technician purposes, the categorization of the degree of the stenosis of this exam is based on criteria described in the IAC carotid stenosis grading white paper( www.intersocietal.org/Vascular) and Makenna Parson, Amy Macario, et al. Carotid artery stenosis: augustine-scale and Doppler US diagnosis--Society of Radiologists in Ultrasound Consensus Conference. Radiology. 2003 Apr; 229(2):340-6. Pat.Name: ERIC THOMAS.ID: [id number] .Date: 01/28/2017 Refer.MD: MARTHA ROD MD Exam Time: 11:00:00 AM Study Type:Carotid Age: 2 1970,46Y Sex: MALE Sonogrphr: Lenora Yanes RVT Pat. Stat.:Inpatient Tape Vol: SD, CPT - 4: 14805 Echo Event ID:[id number] Order ID: [id number] Reason for Study:Pre-operaive CV exam for renal [...] 10:48 AM) Specimen Performing Laboratory [facility] [address] [place] [address] Narrative Echocardiography Report [address] [place] [address] Pat.Name:ERIC THOMAS Pat.ID:[id number] .Date: 01/28/2017 Refer.MD:MARTHA ROD MD Exam Time: 10:01:00 AM Study Type:Routine Echo Height:67inWeight:199lb BSA: 2.02 m2 DOBAge:1970 ,46Y Sex: MALEBP: 164/86 Sonogrphr: Lynnette Ballesteros RDCS, RVT Pat. Stat.:Inpatient Room:[facility] Study Status:Final Echo Event ID:[id number] Order ID:[id number] Reason for Study:Myocardial ischemia/infarction History / Clinical:Diabetes, [...] of increased pressure. MEASUREMENTS: 2D Parasternal [place] LVOT 2.2 cmLA Ds 3.7 cm LVIDd5.1 cmIndex 2.5 cm/m Ao An2.1 cm LVIDs3.5 cmAo Rtd 3.4 cm Index1.7 cm/m LV%fs 31.2 % LV Qwwq260.4 g(122-174) IVSd 1 cmLVM Index 97.3 g/m2 [...] - 01/28/2017 3:34 PM CDT Echocardiography Report [address] [address] Pat.Name: ERIC THOMAS.ID: [id number] .Date: 01/28/2017 Refer.MD: MARTHA ROD MD Exam Time: 10:01:00 AM Study Type:Routine Echo Height: 67in Weight: 199lb BSA: 2.02 m2 Age: 2 1970,46Y Sex: MALE BP: 164/86 Sonogrphr: Lynnette Ballesteros RD, RVT Pat. Stat.:Inpatient Room: [facility] Study Status:Final Echo Event ID:[id number] Order ID: [id number] Reason for Study:Myocardial ischemia/infarction History / Clinical:Diabetes, [...] of increased pressure. MEASUREMENTS: 2D Parasternal [place] LVOT 2.2 cm LA Ds 3.7 cm [...] type 1 diabetes. Specimen Performing Laboratory Blood [facility] DEPARTMENT OF PATHOLOGY AND GENOMIC MEDICINE [address] [place] [address] * Comprehensive metabolic panel (01/28/2017 9:05 AM) [...] 1.2 mg/dL Specimen Performing Laboratory Plasma specimen [facility] DEPARTMENT OF PATHOLOGY AND GENOMIC MEDICINE [address] [place] [address] * US Renal (12/01/2016 2:18 PM) Specimen Performing Laboratory [facility] [address] [place] [address] Narrative EXAMINATION:US RENAL CLINICAL HISTORY:N18.6 End stage renal disease, Renal Transplant Evaluation COMPARISON:None. FINDINGS: The kidneys are generally increased in echogenicity suggesting chronic renal disease.. There is no evidence of solid renal mass, stone or hydronephrosis. The right kidney nlaszhlq73.3 x 5.9 x 5.8 cm. The left kidney .1 x 5.8 x 6.0 cm.. The urinary bladder is unremarkable. IMPRESSION: Signs of chronic renal disease.. [facility]-[id number] Procedure Note Interface, Radiology Results Incoming - [...] unremarkable. IMPRESSION: Signs of chronic renal disease.. [facility]-[id number] * Echocardiogram complete w contrast and 3D if needed (12/01/2016 11:28 AM) Specimen Performing Laboratory [facility] [address] [facility] [place] [address] Narrative Echocardiography Report [address] [place] [address] Pat.Name:ERIC THOMAS Pat.ID:[id number] .Date: 12/01/2016 Refer.MD:BRIAN LANDEROS MD Exam Time: 9:50:00 AMStudy Type:Routine Echo Height:67inWeight:199lb BSA: 2.02 m2 DOBAge:1970 ,46Y Sex: MALEBP: 140/80 HR:88 bpm Sonogrphr: Florencia Solomon RDCS, RVT Pat. Stat.:OutpatientRoom:[facility] Study Status:Final Echo Event ID:[id number] Order ID:[id number] Reason for Study:Renal Transplant Evaluation History / [...] PA systolic pressure. MEASUREMENTS: 2D Parasternal [place] LVOT 2 cmLA Ds 4.2 cm LVIDd4.3 cmIndex 2.1 cm/m Ao An2.1 cm LVIDs2.9 cmAo Rtd 3.4 cm Index1.7 cm/m LV%fs 31.5 % LV Eeow644.9 g(122-174) IVSd 1.1 cmLVM Index 78.2 g/m2 [...] - 12/01/2016 12:49 PM CDT Echocardiography Report [address] [place] [address] Pat.Name: ERIC THOMAS Pat.ID: [id number] .Date: 12/01/2016 Refer.MD: BRIAN LANDEROS MD Exam Time: 9:50:00 AM Study Type:Routine Echo Height: 67in Weight: 199lb BSA: 2.02 m2 Age: 2 1970,46Y Sex: MALE BP: 140/80 HR: 88 bpm Sonogrphr: Florencia Solomon RDCS, RVT Pat. Stat.:Outpatient Room: [facility] Study Status:Final Echo Event ID:[id number] Order ID: [id number] Reason for Study:Renal Transplant Evaluation History / [...] PA systolic pressure. MEASUREMENTS: 2D Parasternal [place] LVOT 2 cm LA Ds 4.2 cm [...] Antigen Patient Typing POS Specimen Performing Laboratory [facility] DEPARTMENT OF PATHOLOGY AND GENOMIC MEDICINE [address] [place] [address] * Syphilis treponemal IgG (10/22/2016 1:04 PM) Component Value Ref Range Syphilis treponemal IgG Non-reactiveComment: Non-reactive: No serological Non-reactive evidence of Syphilis infection Specimen Performing Laboratory Serum [facility] DEPARTMENT OF PATHOLOGY AND [facility] MEDIC[facility] [address] [place] [address] * Nicotine and metabolites, serum (10/22/2016 1:04 PM) Component Value Ref Range Nicotine <2.0 0.0 - 2.0 ng/mL Cotinine <2.0 0.0 - 2.0 ng/mL 9-JM-spmxarnr <5.0 0.0 - 5.0 ng/mL Comment: This test was developed and its performance characteristics determined by the Department of Pathology and Genomic Medicine, [facility]. Serum nicotine and its metabolites cotinine and 4-MI-jfthzbnh are tested by HPLC tandem mass spectrometry. It has not been cleared or approved by FDA. The laboratory is regulated under CLIA as qualified to perform high-complexity testing. This test is used for clinical purposes. It should not be regarded as investigational or for research. Specimen Performing Laboratory Blood [facility] OF PATHOLOGY AND GENOMIC MEDICINE [address] [place] [address] * Hepatitis B surface Ab, quantitative (10/22/2016 [...] as greater than 1,000.00 IU/L. Performed by [facility], [address] [place] [phone] [email or web address].[employer], Elias Arroyo MD - Lab. Director Specimen Performing Laboratory Serum [facility] [address] [place] [address] * Hepatitis C antibody (10/22/2016 1:04 PM) Component Value Ref Range Hepatitis C Ab Non-reactive Non-reactive Specimen Performing Laboratory Blood [facility] DEPARTMENT OF PATHOLOGY AND GENOMIC MEDICINE [address] [place] [address] * Hepatitis A antibody total (10/22/2016 1:04 PM) Component Value Ref Range Hepatitis A total Ab Non-reactive Non-reactive Specimen Performing Laboratory Blood [facility] DEPARTMENT OF PATHOLOGY AND GENOMIC MEDICINE [address] [place] [address] * Drug torres 9, ser/bertha, scrn w/rflx [...] use. Test developed and characteristics determined by [facility]. See Compliance Statement B: [employer]/CS Performed by [facility], [address] [place] [id number] www.[employer], Elias Arroyo MD - Lab. Director Specimen Performing Laboratory Serum [facility] [address] [place] [address] * ABORh - transplant (10/22/2016 1:04 PM) Component Value Ref Range ABO grouping A Rh type POS Specimen Performing Laboratory Blood [facility] DEPARTMENT OF PATHOLOGY AND GENOMIC MEDICINE [address] [place], [place] [id number] * Hepatitis B core antibody total (10/22/2016 1:04 PM) Component Value Ref Range Hepatitis B core total Ab Non-reactive Non-reactive Specimen Performing Laboratory Blood [facility] DEPARTMENT OF PATHOLOGY AND GENOMIC MEDICINE [address] [place], [place] [id number] * C-peptide (10/22/2016 1:04 PM) Component Value Ref Range C-peptide 8.6 (H) 1.1 - 4.4 ng/mL Specimen Performing Laboratory Plasma specimen [facility] DEPARTMENT OF PATHOLOGY AND GENOMIC MEDICINE [address] [place], [place] [id number] * HIV 1, 2 antibody (10/22/2016 1:04 PM) Component Value Ref Range HIV 1, 2 antibody Non-reactive Non-reactive Comment: Starting from September 10 2015, 4th generation HIV screening and confirmation assays are in use at [facility], consistent with the CDC-recommended algorithm. [...] on the testing algorithm, please refer to: http://stacks.cdc.gov/view/cdc/13913. Specimen Performing Laboratory Blood [facility] DEPARTMENT OF PATHOLOGY AND GENOMIC MEDICINE [address] [place] [address] * Hepatitis B surface antibody (10/22/2016 1:04 PM) Component Value Ref Range Hepatitis B surface Ab Reactive (A) Non-reactive Specimen Performing Laboratory Blood [facility] DEPARTMENT OF PATHOLOGY AND GENOMIC MEDICINE [address] [place] [address] after 08/29/2016 Insurance Payer Benefit Subscriber ID Type Phone Address Plan / Group [employer] MEDICARE HU[employer]NA HMO xxxxxxxxx HMO GOLD PLUS MEDICARE ERIC THOMAS Transplant Self 1970 Home: [address] [place] [address]
[2017-08-30] MEDS ORDERED: INSULIN REGULAR, HUMAN 100 UNIT/1 ML 3ML VIAL IV ONE (01:00)
[2017-08-30] MEDS ORDERED: INSULIN REGULAR, HUMAN 100 UNIT/1 ML 3ML VIAL SQ ONE (01:00)
[2017-08-30 01:02] LABS: BASOPHILS # (AUTO) 0.1 (0.0-0.1); EOSINOPHILS # (AUTO) 0.3 (0.0-0.4); EOSINOPHILS % 3.5 % (0.0-6.0); HEMATOCRIT 32.5 % (38.2-49.6); HEMOGLOBIN 11.2 g/dL (14.0-18.0); LYMPHOCYTES # (AUTO) 1.5 (1.0-3.2); LYMPHOCYTES % 20.3 % (18.0-39.1); MEAN CORPUSCULAR HEMOGLOBIN 29.1 pg (28-32); MEAN CORPUSCULAR HGB CONC 34.5 g/dL (31-35); MEAN CORPUSCULAR VOLUME 84.4 fL (81-99); MONOCYTES # (AUTO) 0.7 (0.2-0.8); MONOCYTES % 10.3 % (4.4-11.3); NEUTROPHILS # (AUTO) 4.6 (2.1-6.9); NEUTROPHILS % 64.6 % (38.7-80.0); PLATELET COUNT 261 x10e3/uL (140-360); RED BLOOD COUNT 3.85 x10e6/uL (4.3-5.7); RED CELL DISTRIBUTION WIDTH 15.7 % (11.7-14.4)
[2017-08-30 01:19] LABS: ALBUMIN 3.3 g/dL (3.5-5.0); ALBUMIN/GLOBULIN RATIO 0.8 (0.8-2.0); ANION GAP 22.9 mmol/L (8-16); CALCIUM 8.6 mg/dL (8.4-10.2); CREATININE, SERUM 10.09 mg/dL (0.72-1.25); POTASSIUM 5.9 mmol/L (3.5-5.1)
[2017-08-30] MEDS ORDERED: INSULIN REGULAR, HUMAN 3ML VL 100 UNIT in SODIUM CHLORIDE 0.45% 100 ML 99 ML IV SCH ×2 (01:27)
[2017-08-30] MEDS ORDERED: DEXTROSE 50% SYRINGE 50 ML IV PRN ×2 (01:30→05:30)
--- NOTE | 2017-08-30 01:43 | Diagnostic Imaging Report ---
CHEST SINGLE (PORTABLE), 08/30/2017 12:47 AM Technique: CHEST SINGLE (PORTABLE) Comparison: 07/07/2017 Clinical history: Shortness of breath Findings: See Impression Impression: 1. Mildly enlarged cardiomediastinal silhouette poststernotomy. 2. Diffuse opacities, likely edema, with small left effusion. Signed by: Dr Melva Rao MD on 08/30/2017 1:40 AM
[2017-08-30] MEDS ORDERED: FUROSEMIDE INJ 10 MG/ML 10 ML VIAL IV ONE (01:45)
[2017-08-30] MEDS ORDERED: ASPIRIN 81 MG CHEW TAB PO ONE (01:45)
[2017-08-30] MEDS ORDERED: SODIUM CHLORIDE FLUSH 10 ML SYR INJ PRN (01:45)
--- OUTSIDE RECORDS SUMMARY | 2017-08-30 01:50 | XMS REPORT | Clinical Summary ---
Author Author [facility] Address Unknown Phone Unavailable Care Team Providers Care Admission Specialist Name Role Phone Asked, Pcp PCP Unavailable [...] to schedule him for his appts.) 02/14/2017 [facility] Cardiovascular Martha Rod MD Coronary artery disease - Encounter of [place] artery of 02/17/2017 [place] heart with stable angina pectoris (Primary Dx); ESRD (end stage renal disease) 02/01/2017 Anesthesia Cardiothoracic Surgery Akbar Cota MD Event 02/01/2017 Procedure Pass Cardiothoracic Surgery 02/01/2017 Surgery Cardiothoracic Surgery Martha Rod MD Cabg x3, COLEY to LAD, SVG to RCA, SVG to OM; Endarterectomy of RCA and OM 01/27/2017 [facility] Cardiology Martha Rod MD S/P CABG ( coronary artery - Encounter bypass graft) (Primary 02/12/2017 Dx); Coronary arteriosclerosis; Coronary artery disease of [place] artery of [place] heart with stable angina pectoris 01/27/2017 Telephone Transplant Radha Montalvo R/S Day 2 Kidney ( Called pts back to r/s her for his day 2 appt since he was admitted to the hospital was not able to leave a message due to mailbox not set up yet.) 01/26/2017 Documentation Transplant Barrington Campbell - CASH [facility] HMO - RENAL EVAL APPRVL 01/25/2017 Telephone [...] his appts.) 12/30/2016 Documentation Transplant Lillie Lopez, ACID MIXER 12/22/2016 Documentation Transplant Barrington Campbell - MCR AB ONLY - RENAL EVAL APPRVL 12/01/2016 [facility] Radiology Brian Landeros MD ESRD (end [...] Documentation Transplant Barrington Campbell TXP - HUMANA [facility] HMO - RENAL EVAL APPRVL 11/22/2016 [facility] lCotilde Oscar MD Encounter 11/02/2016 Documentation Transplant Roseanne [...] stage renal Encounter disease) 10/22/2016 Hospital Transplant Biran Landeros MD Encounter 10/22/2016 Hospital Transplant Clotilde Kimble MD Encounter 10/22/2016 Hospital Transplant Clotilde Kimble MD Encounter 10/19/2016 Orders Only Transplant Jameel [address] RN ESRD (end stage renal disease) (Primary Dx) 10/05/2016 Telephone Transplant Netta Campbell RN Error 10/05/2016 Telephone Transplant Netta Campbell RN recalling manager marketing communications 10/05/2016 Telephone Transplant María Elena Kong [...] INFLUENZA VACCINE 01/12/2017 Implants Implanted Type Area Film Coater Device Expiration Model / Identifier Date Serial / Lot Lead Pace Ravindra Mycrdl Unipol Tmpry Cardiovasc N/A: N/A [employer] [facility] - 07/30/2018 [id number] / Streamline - [id number] - [id number] ulmo CARDIAC SRGRY [id number] / Implanted: Qty: 2 on 02/01/2017 by Implants [id number] Martha Rod MD Patch Biosurg Selnt Fibrin Absrbl Surgical N/A: N/A GARZA [id number] / 9.5x4.8cm Tachosil - [id number] Implants; BIOSCIENCE / Implanted: 02/01/2017 (Quantity not Expanders; on file) Extenders; Surgical Wires [place] Perph Vasclr Ptfe 1.2x10cm Vascular N/A: N/A BARD PERIPHERAL [id number] / 1.65mm - [id number] - [id number] Graft VASCULAR [id number] / Implanted: Qty: 1 on 02/01/2017 by [id number] Payton MD Procedures Procedure Name Priority Date/Time Associated Diagnosis Comments HEMODIALYSIS Routine 02/17/2017 8:16 AM CDT ECHOCARDIOGRAM 2D STAT 02/15/2017 Results for this COMPLETE W MMODE SPECTRAL 12:30 AM CDT procedure are in the COLOR DOPPLER (97047) results section. HEMODIALYSIS Routine 02/14/2017 9:51 PM CDT HEMODIALYSIS Routine 02/12/2017 11:43 AM CDT HEMODIALYSIS Routine 02/11/2017 8:51 AM CDT ECHOCARDIOGRAM 2D Routine 02/09/2017 Results for this COMPLETE W MMODE SPECTRAL 4:07 PM CDT procedure are in the COLOR DOPPLER (99667) results section. HEMODIALYSIS Routine 02/09/2017 8:21 AM [...] procedure well with no immediate complicati ons DC AN ELECTIVE Routine 02/01/2017 ENDOTRACHEAL AIRWAY 12:37 [...] CDT procedure are in the COLOR DOPPLER (77945) results section. ECHOCARDIOGRAM 2D Routine 12/01/2016 ESRD (end stage renal Results for this COMPLETE W MMODE SPECTRAL 11:28 AM CDT disease) procedure are in the COLOR DOPPLER (55911) results section. after 08/29/2016 Results * POC glucose (02/17/2017 9:10 AM) Only the most recent of 95 results within the time period is included. Component Value Ref Range POC glucose 138 (H) 65 - 99 mg/dL Comment: Meter ID: [id number] Picker Tender: Fuad oTbin Specimen Performing Laboratory [facility] DEPARTMENT OF PATHOLOGY AND GENOMIC MEDICINE [address] [place], [place] [id number] * CBC hemogram (02/17/2017 4:45 AM) Only [...] 0.00 /100 WBC Specimen Performing Laboratory Blood [facility] DEPARTMENT OF PATHOLOGY AND GENOMIC MEDICINE [address] [place] [address] * Ionized calcium (02/17/2017 4:45 AM) Only the most recent of 2 results within the time period is included. Component Value Ref Range pH 7.51 Ionized calcium 1.00 (L) 1.11 - 1.32 mmol/L Specimen Performing Laboratory Plasma specimen [facility] DEPARTMENT OF PATHOLOGY AND GENOMIC MEDICINE [address] [place] [address] * Estimated GFR (02/17/2017) Only the most [...] and Americans. Specimen Performing Laboratory Plasma specimen [facility] [place] [address] * Phosphorus level (02/17/2017) Only the most recent of 5 results within the time period is included. Component Value Ref Range Phosphorus 4.9 (H) 2.4 - 4.5 mg/dL Specimen Performing Laboratory Plasma specimen [facility] [place] [address] * Magnesium level (02/17/2017) Only the most recent of 7 results within the time period is included. Component Value Ref Range Magnesium 2.4 1.6 - 2.6 mg/dL Specimen Performing Laboratory Plasma specimen [facility] [place] [address] * Basic metabolic panel (02/17/2017) Only the [...] 10.2 mg/dL Specimen Performing Laboratory Plasma specimen [facility] [place] [address] * XR Chest 1 Vw Portable (02/16/2017 11:10 AM) Only the most recent of 4 results within the time period is included. Specimen Per[facility] [address] [place], [place] [phone] Narrative EXAMINATION:XR CHEST 1 VW PORTABLE CLINICAL HISTORY:post thora COMPARISON:02/14/2017 chest IMPRESSION: Improving left pleural effusion with mild residual costophrenic angle fluid Hypoinflation without focal infiltrate or congestion Mild patchy bibasilar atelectasis. Cardiomediastinal silhouette normal size. Sternotomy wires as before. Right IJ dialysis catheter right atrial level [id number] Procedure Note Interface, Radiology Results Incoming - 02/16/2017 11:16 AM CDT EXAMINATION: XR CHEST 1 VW PORTABLE CLINICAL HISTORY: post thora COMPARISON: 02/14/2017 chest IMPRESSION: Improving left pleural effusion with mild residual costophrenic angle fluid Hypoinflation without focal infiltrate or congestion Mild patchy bibasilar atelectasis. Cardiomediastinal silhouette normal size. Sternotomy wires as before. Right IJ dialysis catheter right atrial level [id number] * US Thoracentesis With Imaging (02/16/2017 10:21 AM) Specimen Performing Laboratory [facility] [address] [place] [address] Narrative EXAMINATION:US THORACENTESIS WITH IMAGING CLINICAL HISTORY: [...] was used for local anesthesia. A 5 Occitan Yueh catheter was inserted into the pleural space and 1.2 L of sanguinous pleural fluid was removed.Post procedure images reveal no significant residual effusion. The patient tolerated the procedure without difficulty and was discharged to the radiology recovery area for postprocedure chest x-ray prior to discharge. EBL: None. COMPLICATIONS: None. SPECIMENS: As above. ASSISTANTS: None. IMPRESSION: Technically successful ultrasound-guided left-sided therapeutic thoracentesis. [facility]-[id number] Procedure Note Interface, Radiology Results Incoming - [...] was used for local anesthesia. A 5 Occitan Yueh catheter was inserted into the pleural space and 1.2 L of sanguinous pleural fluid was removed. Post procedure images reveal no significant residual effusion. The patient tolerated the procedure without difficulty and was discharged to the radiology recovery area for postprocedure chest x-ray prior to discharge. EBL: None. COMPLICATIONS: None. SPECIMENS: As above. ASSISTANTS: None. IMPRESSION: Technically successful ultrasound-guided left-sided therapeutic thoracentesis. [facility]-[id number] * Partial thromboplastin time, activated (02/16/2017 2:35 AM) Only the most recent of 4 results within the time period is included. Component Value Ref Range PTT 33.9 23.0 - 36.0 sec Comment: PTT therapeutic range for unfractionated heparin is 61.0-112.0 seconds which corresponds to Anti-Xa 0.3-0.7 U/ml. Specimen Performing Laboratory Blood [facility] DEPARTMENT OF PATHOLOGY AND GENOMIC MEDICINE [address] [place], [place] [address] * Prothrombin time with INR (02/16/2017 2:35 [...] vein thrombosis/pulmonary embolism. Specimen Performing Laboratory Blood [facility] DEPARTMENT OF PATHOLOGY AND GENOMIC MEDICINE [address] [place] [address] * US Chest (02/15/2017 7:41 AM) Specimen Performing Laboratory [facility] [address] [place] [address] Narrative EXAMINATION:US CHEST CLINICAL HISTORY: Pleural effusiondiagnosislocalization for thoracentesis COMPARISON:None. FINDINGS: Limited ultrasound of the chest demonstrates no significant pleural effusion on the right side. There is a large left-sided pleural effusion with calculated volume of approximately 1 L. IMPRESSION: As above [facility]-[id number] Procedure Note Interface, Radiology Results Incoming - 02/15/2017 8:39 AM CDT EXAMINATION: US CHEST CLINICAL HISTORY: Pleural effusion diagnosis localization for thoracentesis COMPARISON: None. FINDINGS: Limited ultrasound of the chest demonstrates no significant pleural effusion on the right side. There is a large left-sided pleural effusion with calculated volume of approximately 1 L. IMPRESSION: As above [facility]-[id number] * Echocardiogram complete w contrast and 3D if needed (02/15/2017 12:30 AM) Specimen Performing Laboratory [facility] [address] [place] [address] Narrative Echocardiography Report [address] [address], [place] [address] Pat.Name:ERIC THOMAS Pat.ID:[id number] .Date: 02/14/2017Refer.MD:MARTHA ROD MD Exam Time: 9:46:00 PMStudy Type:Routine Echo Height:68inWeight:201lb BSA: 2.05 m2 DOBAge:1970 ,46Y Sex: MALEBP: 164/82 HR:90 bpmSonogrphr: Delia Tariq RDCS, RVT Pat. Stat.:Inpatient Room:[place] [address] Study Status:Final Echo Event ID:[id number] Order ID:[id number] Reason for Study:Ventricular Function after ACS- Re-eval [...] detected by Doppler. MEASUREMENTS: 2D Parasternal [place] LVOT 1.8 cmLA Ds 3.2 cm LVIDd3.9 cmIndex 1.9 cm/m Ao An1.8 cm LVIDs2 cmAo Rtd 3.5 cm Index1.7 cm/m LV%fs 48.7 % LV Fann047.7 g(122-174) IVSd 1.4 cmLVM Index 87.7 g/m2 LVPWd1.2 cmRWT 0.6 LA Sng Plane LA Area 23.1 cm2(8.8-23.4) LA Vol84.2 ml Index41.1 ml/m LA LngAx 4.8 cm Signed 02/15/2017 10:47 AM Donn Partida M.D. Procedure Note Interface, Radiology Results In - 02/15/2017 10:47 AM CDT Echocardiography Report [address] [address] Pat.Name: ERIC THOMAS.ID: [id number] .Date: 02/14/2017 Refer.MD: MARTHA ROD MD Exam Time: 9:46:00 PM Study Type:Routine Echo Height: 68in Weight: 201lb BSA: 2.05 m2 Age: 2 1970,46Y Sex: MALE BP: 164/82 HR: 90 bpm Sonogrphr: Delia Tariq RDCS, RVT Pat. Stat.:Inpatient Room: [place] [address] Study Status:Final Echo Event ID:[id number] Order ID: [id number] Reason for Study:Ventricular Function after ACS- Re-eval [...] detected by Doppler. MEASUREMENTS: 2D Parasternal [place] LVOT 1.8 cm LA Ds 3.2 cm [...] Range Ventricular rate 92 Atrial rate 92 DC interval 142 QRSD interval 84 QT interval 366 QTC interval 452 P axis 1 57 QRS axis 1 18 T wave axis 93 EKG impression Normal sinus rhythm-Inferior infarct (cited on or before 03-FEB-2017)-T wave abnormality, consider lateral ischemia-Abnormal ECG- Specimen Performing Laboratory [facility] [address] [place] [address] * Troponin (02/14/2017 9:00 PM) Component Value [...] acute myocardial injury. Specimen Performing Laboratory Blood [facility] DEPARTMENT OF PATHOLOGY AND [facility] MEDICINE [address] [place] [address] * CBC with platelet and differential (02/14/2017 [...] (promyelocytes, myelocytes, metamyelocytes) Specimen Performing Laboratory Blood [facility] DEPARTMENT OF PATHOLOGY AND [address] [address] * Type and screen (02/14/2017 9:00 PM) Only the most recent of 4 results within the time period is included. Component Value Ref Range ABO grouping A Rh type POS Antibody screen (gel) NEG Specimen Performing Laboratory Blood [facility] DEPARTMENT OF PATHOLOGY AND [address] [address] * B natriuretic peptide (02/14/2017 9:00 PM) Component Value Ref Range BNP 630 (H) 0 - 100 pg/mL Specimen Performing Laboratory Blood [facility] DEPARTMENT OF PATHOLOGY AND [facility] MEDICINE [address] [place] [address] * Lipase level (02/14/2017 9:00 PM) Only the most recent of 2 results within the time period is included. Component Value Ref Range Lipase 33 13 - 60 U/L Specimen Performing Laboratory Blood [facility] DEPARTMENT OF PATHOLOGY AND [facility] MEDICINE [address] [place] [address] * Lactic acid level (02/14/2017 9:00 PM) Component Value Ref Range Lactic acid 1.3 0.5 - 2.2 mmol/L Specimen Performing Laboratory Blood [facility] DEPARTMENT OF PATHOLOGY AND [facility] MEDICINE [address] [place] [address] * Amylase level (02/14/2017 9:00 PM) Only the most recent of 2 results within the time period is included. Component Value Ref Range Amylase 34 13 - 53 U/L Specimen Performing Laboratory Blood [facility] DEPARTMENT [place] [address] * Hepatic function panel (02/14/2017 9:00 PM) [...] - 50 U/L Specimen Performing Laboratory Blood [facility] DEPARTMENT OF PATHOLOGY AND [facility] MEDICINE [address] [place] [address] * Echocardiogram complete w contrast and 3D if needed (02/09/2017 4:07 PM) [facility]imen [facility] [address] [place] [address] Narrative Echocardiography Report [address] [place] [address] Pat.Name:EIRC THOMAS.ID:[id number] .Date: 02/09/2017 Refer.MD:MARTHA ROD MD Exam Time: 3:00:00 PMStudy Type:Routine Echo Height:67inWeight:205lb BSA: 2.05 m2 DOBAge:1970 ,46Y Sex: MALEBP: 102/70 HR:80 bpm Sonogrphr: ESTELLA Vela [facility]. Stat.:Inpatient Room:[facility] Study Status:Final Echo Event ID:[id number] Order ID:[id number] Reason for Study:s/p CABG History / Clinical:Diabetes, [...] PA systolic pressure. MEASUREMENTS: 2D Parasternal [place] LA Ds3.4 cmLVPWd 1.2 cm Ao Rtd 3.5 cmIndex 1.7 cm/m LV Msfq624.1 g(122-174) LVIDd4 cmIndex 2 cm/m LVM Index 73.7 g/m2 IVSd 1.1 cmRWT 0.6 LA Sng Plane LA Area 21.6 cm2(8.8-23.4) LA Vol65.6 ml Index32 ml/m LA LngAx 6.4 cm Signed 02/09/2017 04:47 PM Gabino Washington M.D. Procedure Note Interface, Radiology Results In - 02/09/2017 4:47 PM CDT Echocardiography Report [address] [place] [address] Pat.Name: ERIC THOMAS Pat.ID: [id number] .Date: 02/09/2017 Refer.MD: MARTHA ROD MD Exam Time: 3:00:00 PM Study Type:Routine Echo Height: 67in Weight: 205lb BSA: 2.05 m2 Age: 2 1970,46Y Sex: MALE BP: 102/70 HR: 80 bpm Sonogrphr: ESTELLA Vela Pat. Stat.:Inpatient Room: [facility] Study Status:Final Echo Event ID:[id number] Order ID: [id number] Reason for Study:s/p CABG History / Clinical:Diabetes, [...] PA systolic pressure. MEASUREMENTS: 2D Parasternal [place] LA Ds 3.4 cm LVPWd 1.2 cm [...] Red Cells AS1 Leukored Irrad Unit number [id number] Product code [id number] Dispense status Transfused Blood expiration date 20170301 Blood type code 6200 Blood type A POSITIVE Product name Red Cells AS1 Leukored Irrad Unit number [id number] Product code [id number] Dispense status Transfused Blood expiration date 20170223 Blood type code 6200 Blood type A POSITIVE Specimen Performing Laboratory [facility] DEPARTMENT OF PATHOLOGY AND GENOMIC MEDICINE [address] [place] [address] * Vitamin D 25 hydroxy level (02/03/2017 [...] for alternative methods. Specimen Performing Laboratory Blood [facility] DEPARTMENT OF PATHOLOGY AND GENOMIC MEDICINE [address] [place] [address] * Line/Drain Removal (02/02/2017 1:08 PM) Zachary [...] - 100 % Specimen Performing Laboratory Blood [facility] DEPARTMENT OF PATHOLOGY AND GENOMIC MEDICINE [address] [place] [address] * Ionized calcium, arterial (02/01/2017 8:30 PM) Only the most recent of 9 results within the time period is included. Component Value Ref Range Ionized calcium, arterial 1.27 1.11 - 1.32 mmol/L Specimen Performing Laboratory Blood [facility] [place] [address] * Sodium level, syringe (02/01/2017 7:19 PM) Only the most recent of 8 results within the time period is included. Component Value Ref Range Sodium, syringe 132 (L) 135 - 148 mEq/L Specimen Performing Laboratory Blood [facility] [place] [address] * Potassium, syringe (02/01/2017 7:19 PM) Only the most recent of 8 results within the time period is included. Component Value Ref Range Potassium, syringe 5.1 (H) 3.5 - 5.0 mEq/L Specimen Performing Laboratory Blood [facility] [place] [address] * Hemoglobin, syringe (02/01/2017 7:19 PM) Only the most recent of 8 results within the time period is included. Component Value Ref Range Hemoglobin, syringe 7.0 (LL) 14.0 - 18.0 g/dL Specimen Performing Laboratory Blood [facility] [place] [address] * Glucose level, syringe (02/01/2017 7:19 PM) Only the most recent of 8 results within the time period is included. Component Value Ref Range Glucose, syringe 180 (H) 65 - 99 mg/dL Specimen Performing Laboratory Blood [facility] [place] [address] * Arterial blood gas, corrected (02/01/2017 7:19 [...] - 2 mEq/L Specimen Performing Laboratory Blood [facility] [place] [address] * Rotational thromboelastometry (02/01/2017 6:25 PM) Only [...] fibrinolytic activity. Specimen Performing Laboratory Plasma specimen [facility] DEPARTMENT OF PATHOLOGY AND GENOMIC MEDICINE [address] [place] [address] * Fibrinogen (02/01/2017 6:22 PM) Only the most recent of 2 results within the time period is included. Component Value Ref Range Fibrinogen 335 200 - 450 mg/dL Specimen Performing Laboratory Blood [facility] DEPARTMENT OF PATHOLOGY AND GENOMIC MEDICINE [address] [place] [address] * Platelet count (02/01/2017 6:22 PM) Only the most recent of 2 results within the time period is included. Component Value Ref Range Platelet count 111 (L) 150 - 400 k/uL Specimen Performing Laboratory [facility] DEPARTMENT OF PATHOLOGY AND GENOMIC MEDICINE [address] [place] [address] * Total iron binding capacity (02/01/2017 10:50 AM) Component Value Ref Range Iron level 46 (L) 59 - 158 ug/dL Iron binding capacity 201 200 - 400 ug/dL % Saturation 22.9 20.0 - 40.0 % Specimen Performing Laboratory Plasma specimen [facility] DEPARTMENT OF PATHOLOGY AND [facility] MEDICINE [address] [place] [address] * Ferritin level (02/01/2017 10:50 AM) Component Value Ref Range Ferritin level 1,124 (H) 30 - 400 ng/mL Specimen Performing Laboratory Plasma specimen [facility] DEPARTMENT OF PATHOLOGY AND [facility] MEDICINE [address] [place] [address] * Surgical pathology request (02/01/2017 8:52 AM) Component Value Ref Range Surgical pathology report See link below for PDF Lab Report Specimen Performing Laboratory [facility] DEPARTMENT OF PATHOLOGY [facility] GENOMIC MEDICINE [address] [place] [address] * Prepare platelet pheresis (02/01/2017 2:45 AM) Component Value Ref Range Product name Apheresis Platelet ACDA LRIRR #1 Unit number [id number] Product code [id number] Dispense status Transfused Blood expiration date 20170202 Blood type code 5100 Blood type O POSITIVE Product name Apheresis Platelet ACDA LRIRR #1 Unit number [id number] Product code [id number] Dispense status Transfused Blood expiration date 20170202 Blood type code 5100 Blood type O POSITIVE Specimen Performing Laboratory [facility] DEPARTMENT OF PATHOLOGY [facility] MEDICINE [address] [place] [address] * Hepatitis B surface antigen (01/29/2017 5:47 PM) Only the most recent of 2 results within the time period is included. Component Value Ref Range Hepatitis B surface Ag Non-reactive Non-reactive Specimen Performing Laboratory Blood [facility] DEPARTMENT OF PATHOLOGY AND GENOMIC MEDICINE [address] [place] [address] * Urea nitrogen, urine, random (01/28/2017 5:45 PM) Component Value Ref Range Urea nitrogen, urine, 142 mg/dL random Specimen Performing Laboratory Urine [facility] DEPARTMENT OF PATHOLOGY AND GENOMIC MEDICINE [address] [place] [address] * Protein, urine, random (01/28/2017 5:45 PM) Component Value Ref Range Protein, urine random 1,090 mg/dL Specimen Performing Laboratory Urine [facility] DEPARTMENT OF PATHOLOGY AND GENOMIC MEDICINE [address] [place] [address] * Creatinine level, urine, random (01/28/2017 5:45 PM) Component Value Ref Range Creatinine, urine, random 69 mg/dL Specimen Performing Laboratory Urine [facility] DEPARTMENT OF PATHOLOGY AND GENOMIC MEDICINE [address] [place] [address] * Urinalysis, automated with microscopy (01/28/2017 5:45 [...] None seen UA Specimen Performing Laboratory Urine [facility] DEPARTMENT OF PATHOLOGY AND GENOMIC MEDICINE [address] [place] [address] * XR Chest 2 Vw (01/28/2017 4:03 PM) Only the most recent of 2 results within the time period is included. Specimen Performing Laboratory [facility] [address] [place] [address] Narrative Examination:XR CHEST 2 VW Clinical History: Chest Pain, pre op surg Comparison: December 01, 2016 Technique: Frontal and lateral views of the chest Impression: Dialysis catheter. Courses to the right HM. No pulmonary consolidation or pleural effusion. Heart size and partly vascularity grossly normal. Bones are intact. No evidence of acute process. [facility]-[id number] Procedure Note Interface, Radiology Results Incoming - [...] are intact. No evidence of acute process. [facility]-[id number] * Pv carotid duplex (01/28/2017 11:35 AM) Only the most recent of 2 results within the time period is included. Specimen Performing Laboratory [facility] [address] [place] [address] Narrative Vascular Ultrasound Laboratory Carotid Artery Duplex Report [address] [place] [address] For quality systems technician purposes, the categorization of the degree of the stenosis of this exam is based on criteria described in the IAC carotid stenosis grading white paper( [email or web address]) and Evaristo Parson., Amy Macario, et al. Carotid artery stenosis: augustine-scale and Doppler US diagnosis--Society of Radiologists in Ultrasound Consensus Conference. Radiology. 2003 Nov; 229(2):340-6. Pat.Name:ERIC THOMAS Pat.ID:[id number] .Date: 01/28/2017 Refer.MD:MARTHA ROD MD Exam Time: 11:00:00 AM Study Type:Carotid DOBAge:1970,46YSex: MALE Sonogrphr: Lenora Yanes RVT Pat. Stat.:Inpatient TapeVol: SD, CPT - 4: 36175 Echo Event ID:[id number] Order ID:[id number] Reason for Study:Pre-operaive CV exam for renal [...] cm/ s Right CCA Mid CCA Mid [id number] cm/sCCA Mid EDV 20.4 cm/ s Right CCA Prox CCA Prox PSV 102 cm/sCCA Prox EDV20.8 cm/s Right ECA ECA YAM511 cm/sECA EDV 0 cm/s Right ICA Dist ICA Dist PSV64.9 cm/Capri Dist EDV23.1 cm/s Right ICA Mid ICA Mid WHV509 cm/Capri Mid EDV 22.1 cm/ s Right ICA Prox ICA Prox PSV 123 cm/Capri Prox EDV29.9 cm/s Right Vertebral Vertebral PSV 46.9 cm/sVertebral EDV 14.7 cm/s Left CCA Dist CCA Dist PSV 117 cm/sCCA Dist EDV22.1 cm/s Left CCA Mid CCA Mid VZS193 cm/sCCA Mid EDV 16.7 cm/ s Left CCA Prox CCA Prox PSV 142 cm/sCCA Prox EDV16.7 cm/s Left ECA ECA MPM073 cm/sECA EDV 0 cm/s Left ICA Dist ICA Dist PSV64.6 cm/Capri Dist EDV15.8 cm/s ICA Mid ICA Mid YEA967 cm/Capri Mid EDV 27 cm/s Left ICA [...] Ultrasound Laboratory Carotid Artery Duplex Report [id number] [address] For quality systems technician purposes, the categorization of the degree of the stenosis of this exam is based on criteria described in the IAC carotid stenosis grading white paper( [email or web address]) and Makenna Parson, Amy Macario, et al. Carotid artery stenosis: augustine-scale and Doppler US diagnosis--Society of Radiologists in Ultrasound Consensus Conference. Radiology. 2003 Apr; 229(2):340-6. Pat.Name: ERIC THOMAS.ID: [id number] .Date: 01/28/2017 Refer.MD: MARTHA ROD MD Exam Time: 11:00:00 AM Study Type:Carotid Age: 2 1970,46Y Sex: MALE Sonogrphr: Lenora Yanes RVT Pat. Stat.:Inpatient Tape Vol: SD, CPT - 4: 19172 Echo Event ID:[id number] Order ID: [id number] Reason for Study:Pre-operaive CV exam for renal [...] 10:48 AM) Specimen Performing Laboratory [facility] [address] [place] [address] Narrative Echocardiography Report [address] [place] [address] Pat.Name:ERIC THOMAS Pat.ID:[id number] .Date: 01/28/2017 Refer.MD:MARTHA ROD MD Exam Time: 10:01:00 AM Study Type:Routine Echo Height:67inWeight:199lb BSA: 2.02 m2 DOBAge:1970 ,46Y Sex: MALEBP: 164/86 Sonogrphr: Lynnette Ballesteros RDCS, RVT Pat. Stat.:Inpatient Room:[facility] Study Status:Final Echo Event ID:[id number] Order ID:[id number] Reason for Study:Myocardial ischemia/infarction History / Clinical:Diabetes, [...] of increased pressure. MEASUREMENTS: 2D Parasternal [place] LVOT 2.2 cmLA Ds 3.7 cm LVIDd5.1 cmIndex 2.5 cm/m Ao An2.1 cm LVIDs3.5 cmAo Rtd 3.4 cm Index1.7 cm/m LV%fs 31.2 % LV Kmmw677.4 g(122-174) IVSd 1 cmLVM Index 97.3 g/m2 [...] - 01/28/2017 3:34 PM CDT Echocardiography Report [id number] [address] Pat.Name: ERIC THOMAS.ID: [id number] .Date: 01/28/2017 Refer.MD: MARTHA ROD MD Exam Time: 10:01:00 AM Study Type:Routine Echo Height: 67in Weight: 199lb BSA: 2.02 m2 Age: 2 1970,46Y Sex: MALE BP: 164/86 Sonogrphr: Lynnette Ballesteros RD, RVT Pat. Stat.:Inpatient Room: [facility] Study Status:Final Echo Event ID:[id number] Order ID: [id number] Reason for Study:Myocardial ischemia/infarction History / Clinical:Diabetes, [...] of increased pressure. MEASUREMENTS: 2D Parasternal [place] LVOT 2.2 cm LA Ds 3.7 cm [...] type 1 diabetes. Specimen Performing Laboratory Blood [facility] DEPARTMENT OF PATHOLOGY AND GENOMIC MEDICINE [address] [place] [address] * Comprehensive metabolic panel (01/28/2017 9:05 AM) [...] 1.2 mg/dL Specimen Performing Laboratory Plasma specimen [facility] DEPARTMENT OF PATHOLOGY AND GENOMIC MEDICINE [address] [place] [address] * US Renal (12/01/2016 2:18 PM) Specimen Performing Laboratory [facility] [address] [place] [address] Narrative EXAMINATION:US RENAL CLINICAL HISTORY:N18.6 End stage renal disease, Renal Transplant Evaluation COMPARISON:None. FINDINGS: The kidneys are generally increased in echogenicity suggesting chronic renal disease.. There is no evidence of solid renal mass, stone or hydronephrosis. The right kidney qfowmvge14.3 x 5.9 x 5.8 cm. The left kidney .1 x 5.8 x 6.0 cm.. The urinary bladder is unremarkable. IMPRESSION: Signs of chronic renal disease.. [facility]-[id number] Procedure Note Interface, Radiology Results Incoming - [...] unremarkable. IMPRESSION: Signs of chronic renal disease.. [facility]-[id number] * Echocardiogram complete w contrast and 3D if needed (12/01/2016 11:28 AM) Specimen Performing Laboratory [facility] [address] [facility] [place] [address] Narrative Echocardiography Report [address] [place] [address] Pat.Name:ERIC THOMAS Pat.ID:[id number] .Date: 12/01/2016 Refer.MD:BRIAN LANDEROS MD Exam Time: 9:50:00 AMStudy Type:Routine Echo Height:67inWeight:199lb BSA: 2.02 m2 DOBAge:1970 ,46Y Sex: MALEBP: 140/80 HR:88 bpm Sonogrphr: Florencia Solomon RDCS, RVT Pat. Stat.:OutpatientRoom:[facility] Study Status:Final Echo Event ID:[id number] Order ID:[id number] Reason for Study:Renal Transplant Evaluation History / [...] PA systolic pressure. MEASUREMENTS: 2D Parasternal [place] LVOT 2 cmLA Ds 4.2 cm LVIDd4.3 cmIndex 2.1 cm/m Ao An2.1 cm LVIDs2.9 cmAo Rtd 3.4 cm Index1.7 cm/m LV%fs 31.5 % LV Siqp627.9 g(122-174) IVSd 1.1 cmLVM Index 78.2 g/m2 [...] - 12/01/2016 12:49 PM CDT Echocardiography Report [address] [place] [address] Pat.Name: ERIC THOMAS Pat.ID: [id number] .Date: 12/01/2016 Refer.MD: BRIAN LANDEROS MD Exam Time: 9:50:00 AM Study Type:Routine Echo Height: 67in Weight: 199lb BSA: 2.02 m2 Age: 2 1970,46Y Sex: MALE BP: 140/80 HR: 88 bpm Sonogrphr: Florencai Solomon RDCS, RVT Pat. Stat.:Outpatient Room: [facility] Study Status:Final Echo Event ID:[id number] Order ID: [id number] Reason for Study:Renal Transplant Evaluation History / [...] PA systolic pressure. MEASUREMENTS: 2D Parasternal [place] LVOT 2 cm LA Ds 4.2 cm [...] Antigen Patient Typing POS Specimen Performing Laboratory [facility] DEPARTMENT OF PATHOLOGY AND GENOMIC MEDICINE [address] [place] [address] * Syphilis treponemal IgG (10/22/2016 1:04 PM) Component Value Ref Range Syphilis treponemal IgG Non-reactiveComment: Non-reactive: No serological Non-reactive evidence of Syphilis infection Specimen Performing Laboratory Serum [facility] DEPARTMENT OF PATHOLOGY AND [facility] MEDICINE [address] [place] [address] * Nicotine and metabolites, serum (10/22/2016 1:04 PM) Component Value Ref Range Nicotine <2.0 0.0 - 2.0 ng/mL Cotinine <2.0 0.0 - 2.0 ng/mL 8-YE-cfwscihp <5.0 0.0 - 5.0 ng/mL Comment: This test was developed and its performance characteristics determined by the Department of Pathology and Genomic Medicine, [facility]. Serum nicotine and its metabolites cotinine and 1-NN-mhodqhmm are tested by HPLC tandem mass spectrometry. It has not been cleared or approved by FDA. The laboratory is regulated under CLIA as qualified to perform high-complexity testing. This test is used for clinical purposes. It should not be regarded as investigational or for research. Specimen Performing Laboratory Blood [facility] OF PATHOLOGY AND GENOMIC MEDICINE [address] [place] [address] * Hepatitis B surface Ab, quantitative (10/22/2016 [...] as greater than 1,000.00 IU/L. Performed by [employer], [address] [place] [address] [email or web address], Elias Arroyo MD - Lab. Director Specimen Performing Laboratory Serum [facility] [address] [place] [address] * Hepatitis C antibody (10/22/2016 1:04 PM) Component Value Ref Range Hepatitis C Ab Non-reactive Non-reactive Specimen Performing Laboratory Blood [facility] DEPARTMENT OF PATHOLOGY AND GENOMIC MEDICINE [address] [place] [address] * Hepatitis A antibody total (10/22/2016 1:04 PM) Component Value Ref Range Hepatitis A total Ab Non-reactive Non-reactive Specimen Performing Laboratory Blood [facility] DEPARTMENT OF PATHOLOGY AND GENOMIC MEDICINE [address] [place] [address] * Drug torres 9, ser/bertha, scrn w/rflx [...] use. Test developed and characteristics determined by [employer]. See Compliance Statement B: [employer]/CS Performed by [employer], [address] [place] [address] [email or web address], Elias Arroyo MD - Lab. Director Specimen Performing Laboratory Serum [facility] [address] [place] [address] * ABORh - transplant (10/22/2016 1:04 PM) Component Value Ref Range ABO grouping A Rh type POS Specimen Performing Laboratory Blood [facility] DEPARTMENT OF PATHOLOGY AND GENOMIC MEDICINE [address] [place], [place] [phone] * Hepatitis B core antibody total (10/22/2016 1:04 PM) Component Value Ref Range Hepatitis B core total Ab Non-reactive Non-reactive Specimen Performing Laboratory Blood [facility] DEPARTMENT OF PATHOLOGY AND GENOMIC MEDICINE [address] [place], [place] [phone] * C-peptide (10/22/2016 1:04 PM) Component Value Ref Range C-peptide 8.6 (H) 1.1 - 4.4 ng/mL Specimen Performing Laboratory Plasma specimen [facility] DEPARTMENT OF PATHOLOGY AND GENOMIC MEDICINE [address] [place], [place] [id number] * HIV 1, 2 antibody (10/22/2016 1:04 PM) Component Value Ref Range HIV 1, 2 antibody Non-reactive Non-reactive Comment: Starting from September 10 2015, 4th generation HIV screening and confirmation assays are in use at [facility], consistent with the CDC-recommended algorithm. [...] on the testing algorithm, please refer to: http://stacks.cdc.gov/view/cdc/86161. Specimen Performing Laboratory Blood [facility] DEPARTMENT OF PATHOLOGY AND GENOMIC MEDICINE [address] [place] [address] * Hepatitis B surface antibody (10/22/2016 1:04 PM) Component Value Ref Range Hepatitis B surface Ab Reactive (A) Non-reactive Specimen Performing Laboratory Blood [facility] DEPARTMENT OF PATHOLOGY AND GENOMIC MEDICINE [address] [place] [address] after 08/29/2016 Insurance Payer Benefit Subscriber ID Type Phone Address Plan / Group [employer] MEDICARE HU[employer]NA HMO xxxxxxxxx HMO GOLD PLUS MEDICARE ERIC THOMAS Transplant Self 1970 Home: [address] [place] [address]
[2017-08-30] MEDS ORDERED: FUROSEMIDE INJ 10 MG/ML 4 ML VIAL ONE (02:05)
[2017-08-30 04:11] LABS: CREATINE KINASE MB 7.7 ng/mL (0-5.0)
[2017-08-30] MEDS: INSULIN REGULAR, HUMAN 100 UNIT/1 ML 3ML VIAL SQ SCH ×4 (07:32→21:00)
[2017-08-30 08:07] LABS: CREATINE KINASE MB 6.1 ng/mL (0-5.0)
[2017-08-30] MEDS: ONDANSETRON HCL INJ 2 MG/ML VIAL IV PRN (12:40)
[2017-08-30] MEDS: PANTOPRAZOLE SOD 40 MG TABEC PO SCH (13:23)
[2017-08-30] MEDS: LISINOPRIL 20 MG TAB PO SCH (13:23)
[2017-08-30] MEDS: CALCITRIOL 0.25 MCG CAP PO SCH (13:23)
[2017-08-30] MEDS: ASPIRIN 81 MG CHEW TAB PO SCH (13:23)
[2017-08-30] MEDS: SEVELAMER CARBONATE 800 MG TAB PO SCH (13:24)
[2017-08-30] MEDS: METOCLOPRAMIDE HCL 10 MG TAB PO SCH ×2 (13:24→17:53)
--- NOTE | 2017-08-30 14:29 | Consultation ---
DATE OF CONSULTATION: August 30, 2017 NEPHROLOGY CONSULTATION REASON FOR CONSULTATION: HD management, shortness of breath, anasarca. HISTORY OF PRESENT ILLNESS: This is a 47-year-old male with known type 2 diabetes, hypertension, CABG back in January of 2017, ESRD on HD Wednesday/Wednesday/Wednesday, who reports last night to the ED with complaints of shortness of breath ongoing for the last 2 days. Patient reports that he has been very compliant with his dialysis but has not removed enough fluids on him. He reports on his last dialysis treatment they removed about 5 liters. He does report that he has been drinking more fluids than usual and has been eating more salt. He denies any chest pain, palpitation, nausea or vomiting. He complains of shortness of breath, orthopnea, and dyspnea on exertion. Patient seen and evaluated at bedside on the medical floor in the ER, currently doing well. He is off of BiPAP, on nasal cannula, and his vital signs were stable. REVIEW OF SYSTEMS PERTINENT POSITIVE: Shortness of breath, anasarca, edema, nausea, vomiting. PERTINENT NEGATIVE: Denies chest pain, palpitation, dysuria, hematuria, frequency, urgency, lightheadedness, dizziness, abdominal pain, headache, fever or any other complaints. REST OF 14-POINT REVIEW OF SYSTEMS: Have been reviewed with the patient and are negative. ALLERGIES: NO KNOWN DRUG ALLERGIES. HOME MEDICATIONS: He takes aspirin 81 mg daily, Lipitor 20 mg daily, Rocaltrol 0.25 mcg daily, Lasix 40 mg daily. He has insulin, lisinopril 20 mg daily, metoclopramide 10 mg p.o. a.c., Lopressor 25 mg p.o. b.i.d., Protonix 40 mg daily, Renvela 800 mg with meals. PAST MEDICAL HISTORY: Has ESRD on HD Wednesday/Wednesday/Wednesday, gastroparesis, hypertension, type 2 diabetes, CABG in January of 2017. SURGICAL HISTORY: He had an appendectomy, cholecystectomy. He also had a CABG in January of 2017. FAMILY HISTORY: Hypertension, diabetes. SOCIAL HISTORY: No drugs, no alcohol. Does not work. He denies any drugs. He is , got good social support. VITAL SIGNS: He is afebrile. Pulse is 90. Respiratory rate is 18. Blood pressure was 172/93. Pulse ox, he is 100% on nasal cannula. LAB FINDINGS: Show white count 7.1, hemoglobin 11.2, hematocrit is 32, platelets of 261. Chemistry: His sodium is 127. His potassium is 5.9. Chloride is 89. Bicarb is 21. Anion gap of 22. BUN is 81. His creatinine is 10. His glucose 720, but repeat shows point of care of 138. His total bilirubin is 0.9. His LFTs were normal. His troponin was 0.099. His total protein 7.6. Albumin is 3.3. MICROBIOLOGY: None. IMAGING STUDIES: Chest x-ray showed mildly enlarged cardiomediastinal silhouette. The diffuse opacity is likely edema with small pleural effusion. PHYSICAL EXAMINATION GENERAL: Not in acute distress. Alert, oriented x3, cooperative on exam. HEENT: Head: Normocephalic, atraumatic. Eyes: Pupils equally round and reactive to light bilaterally. Extraocular movements intact bilaterally. Neck was supple with good range of motion. Throat: No evidence of any erythema or exudates in the posterior pharynx. Has poor dentition. PULMONARY: He has decreased breath sounds bilaterally. Has positive rales, fine crackles, no rhonchi. CARDIOVASCULAR: Positive S1/S2. No murmurs, rubs or gallops appreciated. ABDOMEN: Soft, nondistended, nontender to palpation. Bowel sounds present. MUSCULOSKELETAL: Strength is 5/5 throughout. No evidence of any musculoskeletal deficit on examination. No weakness appreciated. NEUROLOGICAL: Cranial nerves 2-12 were grossly intact. No evidence of any neurological deficit on exam. SKIN: Intact. Warm to touch. Good capillary refill. PSYCHIATRIC: Normal affect and mood. EXTREMITIES: He has significant anasarca with 3+ pedal edema bilateral lower extremities. IMPRESSION 1. End-stage renal disease on hemodialysis Wednesday/Wednesday/Wednesday, now with volume overload and shortness of breath. 2. Acute respiratory distress secondary to volume overload. 3. Anemia of end-stage renal disease. 4. Bone mineral disease of end-stage renal disease/secondary hyperparathyroidism. PLAN: At this time, dialysis nurse has been called for HD. He will have HD prescription blood flow rate 350 mL per minute, dialysis flow rate 700 mL per minute, 2-K bath, 2.5 calcium, ultrafiltration 4 liters, duration 4 liters. Will repeat dialysis tomorrow as well to remove more fluid. Patient reports being very noncompliant with his diet, salt intake, as well as his volume intake. In terms of his anemia, his hemoglobin is stable at 11.2. There is no indication for any erythropoietin-stimulating agents at this time. Continue with Renvela with meals as well as Rocaltrol. Renal diet. No IV fluids. Will continue to follow with you. Thank you so much for this consultation. Will continue to follow with you. Job#: [id number] EV
[2017-08-30] MEDS ORDERED: SODIUM CHLORIDE 0.9% 1000ML 1,000 ML ONE (14:51)
[2017-08-30] MEDS: METOPROLOL TARTRATE 25 MG TAB PO SCH (17:53)
[2017-08-30 18:59] LABS: CREATINE KINASE MB 5.9 ng/mL (0-5.0)
--- NOTE | 2017-08-30 19:37 | History and Physical ---
The patient presented to the emergency room with shortness of breath. He stated he underwent his usual dialysis 2 days prior. He is dialyzed Wednesday, Wednesday and Wednesday. Dr. Alarcon sees him regarding nephrology when he is here, and Dr. Alarcon has been consulted. Chest x-ray revealed fluid overload. The patient has a long history of diabetes mellitus with nephropathy and has been on hemodialysis. He has an AV fistula in left upper extremity, upper arm. Diabetic complications have included coronary artery disease with bypass, nephropathy, neuropathy, gastropathy with recurrent nausea and vomiting, less symptomatic recently. Denies headache. Nearly blind left eye. Poor vision right eye. No chest pain. No fever or purulent sputum. GI as above. Denies current symptoms. Neuromuscular neuropathy. Sedentary. Denies tobacco or alcohol. FAMILY HISTORY: Diabetes. SURGICAL HISTORY: Appendectomy, CAD, AV fistula. ALLERGIES: NO KNOWN DRUG ALLERGIES. PHYSICAL EXAMINATION GENERAL: The patient is alert and in no distress. VITALS: Temperature 98, pulse 81 and regular, blood pressure 135/80, respiratory rate 25, O2 saturation 100%. Height 5 feet 6 inches, weight 198. BMI 31.9. HEENT: Pupils round and fully reactive. EOMs full. Mild pallor. No icterus. Throat clear. NECK: Supple. Carotids palpable. PULMONARY: Auscultation with reduced breath sounds at bases. CARDIAC: Sounds S1 and S2 within normal range. ABDOMEN: Overweight and soft. Bowel sounds normal. Sternal scar. EXTREMITIES: With bilateral 1+ edema. Dampened pulses. Reduced peripheral sensation. DTRs reduced. Strength fair. Sensorium baseline. IMPRESSION 1. Fluid overload. 2. End-stage renal disease secondary to chronically uncontrolled diabetes mellitus: The patient requires hemodialysis morning. Blood sugar on arrival here elevated at 720. The patient required insulin drip. He is being treated now with subcutaneous insulin and sugars have responded. His not in ketoacidosis. 3. Retinopathy. 4. Neuropathy. 5. Gastropathy. 6. Malignant hypertension controlled at this time. 7. Coronary artery disease with prior bypass: Recheck echocardiogram. No evidence of myocardial infarction per current. Enzymes. 8. Mild anemia secondary to renal failure. See also initial and followup orders. The patient requires BiPAP at this time. Follow up database. Job#: [id number] IN
[2017-08-30 20:45] VITALS: BP 195/102
[2017-08-30] MEDS ORDERED: NIFEDIPINE ER30 M1 PO (21:20)
[2017-08-30] MEDS ORDERED: CLONIDINE HCL0.1 MG PO (21:20)
[2017-08-30] MEDS: NIFEDIPINE CR 30 MG TAB PO SCH (21:53)
[2017-08-30] MEDS: CLONIDINE HCL 0.1 MG TAB PO PRN (21:54)
[2017-08-30] MEDS: ATORVASTATIN 20 MG TAB PO SCH (21:56)
[2017-08-31] VITALS (7 sets, daily range): BP systolic 128–195; BP diastolic 69–102
[2017-08-31 06:10] LABS: BASOPHILS # (AUTO) 0.1 (0.0-0.1); BASOPHILS % 0.9 % (0.0-1.0); EOSINOPHILS # (AUTO) 0.2 (0.0-0.4); EOSINOPHILS % 2.2 % (0.0-6.0); HEMOGLOBIN 10.3 g/dL (14.0-18.0); LYMPHOCYTES # (AUTO) 1.3 (1.0-3.2); LYMPHOCYTES % 19.5 % (18.0-39.1); MEAN CORPUSCULAR HEMOGLOBIN 29.6 pg (28-32); MEAN CORPUSCULAR HGB CONC 34.3 g/dL (31-35); MEAN CORPUSCULAR VOLUME 86.2 fL (81-99); MONOCYTES # (AUTO) 0.6 (0.2-0.8); NEUTROPHILS # (AUTO) 4.7 (2.1-6.9); NEUTROPHILS % 68.1 % (38.7-80.0); PLATELET COUNT 270 x10e3/uL (140-360); RED BLOOD COUNT 3.48 x10e6/uL (4.3-5.7); RED CELL DISTRIBUTION WIDTH 16.1 % (11.7-14.4)
[2017-08-31 06:48] LABS: ALBUMIN 2.9 g/dL (3.5-5.0); ALBUMIN/GLOBULIN RATIO 0.8 (0.8-2.0); ANION GAP 16.7 mmol/L (8-16); CALCIUM 8.4 mg/dL (8.4-10.2); CREATININE, SERUM 7.69 mg/dL (0.72-1.25); POTASSIUM 5.7 mmol/L (3.5-5.1)
[2017-08-31] MEDS: ASPIRIN 81 MG CHEW TAB PO SCH (07:35)
[2017-08-31] MEDS: METOCLOPRAMIDE HCL 10 MG TAB PO SCH ×3 (07:35→17:32)
[2017-08-31] MEDS: INSULIN REGULAR, HUMAN 100 UNIT/1 ML 3ML VIAL SQ SCH ×4 (08:00→20:38)
[2017-08-31] MEDS: FUROSEMIDE 40 MG TAB PO SCH (08:09)
[2017-08-31] MEDS: SEVELAMER CARBONATE 800 MG TAB PO SCH (08:09)
[2017-08-31] MEDS: PANTOPRAZOLE SOD 40 MG TABEC PO SCH (08:11)
[2017-08-31] MEDS: CALCITRIOL 0.25 MCG CAP PO SCH (08:12)
[2017-08-31] MEDS: METOPROLOL TARTRATE 25 MG TAB PO SCH ×2 (09:00→17:49)
[2017-08-31] MEDS ORDERED: LISINOPRIL 10 MG TAB PO SCH (09:00)
[2017-08-31] MEDS: LISINOPRIL 20 MG TAB PO SCH (15:17)
[2017-08-31] MEDS: NIFEDIPINE CR 30 MG TAB PO SCH (15:18)
[2017-08-31] MEDS: ATORVASTATIN 20 MG TAB PO SCH (20:35)
[2017-09-01] VITALS (8 sets, daily range): BP systolic 136–168; BP diastolic 65–90
[2017-09-01] MEDS ORDERED: ACETAMINOPHEN 325 MG TAB PO PRN (00:30)
[2017-09-01 06:49] LABS: ANION GAP 21.8 mmol/L (8-16); CALCIUM 8.9 mg/dL (8.4-10.2); CREATININE, SERUM 7.39 mg/dL (0.72-1.25); POTASSIUM 4.8 mmol/L (3.5-5.1)
[2017-09-01] MEDS: INSULIN REGULAR, HUMAN 100 UNIT/1 ML 3ML VIAL SQ SCH ×4 (07:30→19:45)
[2017-09-01] MEDS: METOCLOPRAMIDE HCL 10 MG TAB PO SCH ×3 (07:30→17:30)
[2017-09-01] MEDS: SEVELAMER CARBONATE 800 MG TAB PO SCH (08:00)
[2017-09-01] MEDS: CALCITRIOL 0.25 MCG CAP PO SCH (09:00)
[2017-09-01] MEDS: LISINOPRIL 20 MG TAB PO SCH (09:00)
[2017-09-01] MEDS: NIFEDIPINE CR 30 MG TAB PO SCH (09:00)
[2017-09-01] MEDS: FUROSEMIDE 40 MG TAB PO SCH (09:00)
[2017-09-01] MEDS: PANTOPRAZOLE SOD 40 MG TABEC PO SCH (09:00)
[2017-09-01] MEDS: ASPIRIN 81 MG CHEW TAB PO SCH (09:00)
[2017-09-01] MEDS: METOPROLOL TARTRATE 25 MG TAB PO SCH ×2 (09:00→17:30)
[2017-09-01] MEDS ORDERED: SODIUM CHLORIDE 0.9% 1000ML 2,000 ML ONE (09:05)
[2017-09-01] MEDS: SERTRALINE HCL 50 MG TAB PO SCH (19:44)
[2017-09-01] MEDS: ATORVASTATIN 20 MG TAB PO SCH (19:44)
[2017-09-02 00:30] VITALS: BP 130/60
[2017-09-02 05:15] VITALS: BP 155/85
--- NOTE | 2017-09-02 06:20 | Consultation ---
DATE OF CONSULTATION: September 01, 2017 PSYCHIATRIC CONSULTATION REASON FOR CONSULTATION: To evaluate patient's depression. HISTORY OF PRESENT ILLNESS: The patient is 47-year-old male admitted to the hospital for CHF, end-stage renal disease, hyperglycemia, hyperkalemia. Psychiatric consultation is called to evaluate patient's mood. As per medical history, patient has history of retinopathy; hypertension; coronary artery disease; mild anemia; fluid overload; end-stage renal disease, on hemodialysis. Upon evaluation today, patient is found to be sitting in a chair in his room with a sitter. Patient is alert, awake, and oriented to situation. Patient states that he has been feeling depressed because of his medical issues. He admitted to telling our staff that I am killing myself because I am not taking care of myself. He feels he is regretful that he is not taking better care of his health and feels helpless and hopeless at times due to the fact that he is unable to do things that he used to be able to do and unable to play with his grandkids. He denies passive wish. He reports anxiety at times. He denies any suicidal or homicidal ideation. He denies any hallucination. He is not delusional or paranoid. As per nurse, he reported that he did not sleep last night. His appetite is intermittent. PAST PSYCHIATRIC HISTORY: Patient denies any past psychiatric history. He reports history of suicide attempt once in the past. He denies alcohol use or drug use. FAMILY HISTORY: Patient reports his mom has depression. SOCIAL HISTORY: Patient states he lives with his . MENTAL STATUS EXAMINATION: The patient is a middle-aged male. He is alert, awake, and oriented to situation. His thought process is concrete. His affect is congruent with mood. He is pleasant and relaxed. His mood is depressed, but he denies any suicidal or homicidal ideation. He denies any hallucinations. He does not elicit paranoia or delusional thinking. Insight and judgment are fair. Memory appears to be grossly intact. CURRENT MEDICATIONS: 1. Klonopin. 2. Lipitor. 3. Ondansetron. 4. Nifedipine. 5. Lisinopril. 6. Sevelamer. 7. Metolazone. 8. Metoprolol. 9. . 10. Lasix. 11. Calcitriol. 12. Aspirin. 13. Insulin. 14. Sodium chloride. 15. Dextrose. LABS: WBC is 6.88, RBC 3.48, hemoglobin 10.2, hematocrit 30, platelets 270,000. Sodium 134, potassium 4.8, chloride 92, BUN 51, creatinine 7.93. ASSESSMENT: Major depressive disorder, recurrent and moderate. PLAN: 1. To add Zoloft 50 mg p.o. every day. 2. Supportive therapy. 3. Monitor for mood. 4. Discontinue sitter as patient is not suicidal and is hopeful. 5. Recommend patient to follow up with outpatient psychiatry. 6. Discussed with nursing staff. Thank you for this consultation. Dictated by AGUILAR Ellis Job#: [id number]
[2017-09-02 06:29] LABS: ANION GAP 22.2 mmol/L (8-16); CALCIUM 9.2 mg/dL (8.4-10.2); CREATININE, SERUM 6.45 mg/dL (0.72-1.25); POTASSIUM 5.2 mmol/L (3.5-5.1)
[2017-09-02 07:35] VITALS: BP 174/92
[2017-09-02] MEDS: INSULIN REGULAR, HUMAN 100 UNIT/1 ML 3ML VIAL SQ SCH ×4 (08:20→21:03)
[2017-09-02] MEDS: PANTOPRAZOLE SOD 40 MG TABEC PO SCH (08:25)
[2017-09-02] MEDS: SEVELAMER CARBONATE 800 MG TAB PO SCH (08:25)
[2017-09-02] MEDS: CALCITRIOL 0.25 MCG CAP PO SCH (08:25)
[2017-09-02] MEDS: METOCLOPRAMIDE HCL 10 MG TAB PO SCH ×3 (08:25→17:19)
[2017-09-02] MEDS: FUROSEMIDE 40 MG TAB PO SCH (08:25)
[2017-09-02] MEDS: SERTRALINE HCL 50 MG TAB PO SCH (08:25)
[2017-09-02] MEDS: ASPIRIN 81 MG CHEW TAB PO SCH (08:25)
--- NOTE | 2017-09-02 10:06 | Progress Note ---
DATE: September 02, 2017 PSYCHIATRIC PROGRESS NOTE The patient was evaluated and events noted. Medications and vital signs reviewed. The patient is found to be in his room. He is alert, awake and oriented to situation. He is currently feeling better and less depressed. He reports feeling better last night. He denies any anxiety. He denies any suicidal ideation. He denies any hallucinations. Thought process is concrete and is oriented. He stated he is taking his medications and denies any side effects from his medications. ASSESSMENT: Major depressive disorder, recurrent, moderate. PLAN: Continue Zoloft 50 mg p.o. daily. Monitor the mood. Supportive therapy. DICTATED BY AGUILAR ISIDRO Job#: [id number] CHERYL
[2017-09-02 12:10] VITALS: BP 172/80
[2017-09-02] MEDS: NIFEDIPINE CR 30 MG TAB PO SCH (12:28)
[2017-09-02] MEDS: LISINOPRIL 20 MG TAB PO SCH (12:28)
[2017-09-02] MEDS: METOPROLOL TARTRATE 25 MG TAB PO SCH ×2 (12:29→17:19)
[2017-09-02 17:20] VITALS: BP 140/73
[2017-09-02] MEDS: ATORVASTATIN 20 MG TAB PO SCH (21:08)
[2017-09-03] VITALS (8 sets, daily range): BP systolic 135–177; BP diastolic 65–92
[2017-09-03] MEDS: ONDANSETRON HCL INJ 2 MG/ML VIAL IV PRN (03:14)
[2017-09-03] MEDS: METOCLOPRAMIDE HCL 10 MG TAB PO SCH ×3 (07:30→16:25)
[2017-09-03] MEDS: INSULIN REGULAR, HUMAN 100 UNIT/1 ML 3ML VIAL SQ SCH ×4 (07:30→21:30)
[2017-09-03] MEDS: SEVELAMER CARBONATE 800 MG TAB PO SCH (08:00)
[2017-09-03] MEDS: PANTOPRAZOLE SOD 40 MG TABEC PO SCH (09:00)
[2017-09-03] MEDS: LISINOPRIL 20 MG TAB PO SCH (09:00)
[2017-09-03] MEDS: NIFEDIPINE CR 30 MG TAB PO SCH (09:00)
[2017-09-03] MEDS: CALCITRIOL 0.25 MCG CAP PO SCH (09:00)
[2017-09-03] MEDS: ASPIRIN 81 MG CHEW TAB PO SCH (09:00)
[2017-09-03] MEDS: FUROSEMIDE 40 MG TAB PO SCH (09:00)
[2017-09-03] MEDS: METOPROLOL TARTRATE 25 MG TAB PO SCH ×2 (09:00→16:26)
[2017-09-03] MEDS: SERTRALINE HCL 50 MG TAB PO SCH ×2 (09:00→21:40)
[2017-09-03] MEDS ORDERED: LIDOCAINE HCL 2% LOCAL 20 ML VIAL ONE (10:13)
[2017-09-03] MEDS ORDERED: SODIUM CHLORIDE 0.9% 500ML 500 ML ONE ×2 (10:13→10:38)
[2017-09-03] MEDS ORDERED: IOPAMIDOL 300MG/ML 50ML INFUS..BTL IV ONE (10:14)
[2017-09-03] MEDS ORDERED: FENTANYL CITRATE/PF 100MCG/2 ML INJ ONE (10:37)
[2017-09-03] MEDS ORDERED: MIDAZOLAM HCL 2 MG/2 ML VIAL ONE (10:37)
[2017-09-03 16:29] LABS: BASOPHILS # (AUTO) 0.1 (0.0-0.1); BASOPHILS % 1.7 % (0.0-1.0); EOSINOPHILS # (AUTO) 0.2 (0.0-0.4); EOSINOPHILS % 3.3 % (0.0-6.0); HEMATOCRIT 34.2 % (38.2-49.6); HEMOGLOBIN 11.6 g/dL (14.0-18.0); LYMPHOCYTES # (AUTO) 1.2 (1.0-3.2); MEAN CORPUSCULAR HEMOGLOBIN 28.9 pg (28-32); MEAN CORPUSCULAR HGB CONC 33.9 g/dL (31-35); MEAN CORPUSCULAR VOLUME 85.3 fL (81-99); MONOCYTES # (AUTO) 0.6 (0.2-0.8); MONOCYTES % 10.4 % (4.4-11.3); NEUTROPHILS # (AUTO) 3.3 (2.1-6.9); NEUTROPHILS % 61.4 % (38.7-80.0); PLATELET COUNT 250 x10e3/uL (140-360); RED BLOOD COUNT 4.01 x10e6/uL (4.3-5.7)
[2017-09-03 16:43] LABS: CALCIUM 8.8 mg/dL (8.4-10.2); CREATININE, SERUM 9.29 mg/dL (0.72-1.25)
[2017-09-03] MEDS ORDERED: SODIUM CHLORIDE 0.9% 1000ML 2,000 ML ONE (19:19)
[2017-09-03] MEDS: ATORVASTATIN 20 MG TAB PO SCH (21:28)
[2017-09-03] MEDS: CLONIDINE HCL 0.1 MG TAB PO PRN (21:28)
[2017-09-03] MEDS ORDERED: ZOLOFT50 MG PO (21:58)
--- NOTE | 2017-09-05 03:07 | Discharge Summary ---
See also emergency room notes. The patient presented to the emergency room where he was hospitalized because of shortness of breath. History includes diabetic nephropathy with end-stage renal disease and chronic hemodialysis. The patient was edematous and fluid overloaded when he arrived. He improved on serial dialyses. He had some slowing in the drop of his potassiums, therefore his sound effects technician, Dr. Alarcon requested an angiogram of his left AV fistula in the upper extremity. Course was complicated by the patient's symptoms of depression. He requested to seek psychiatric consultation, which was undertaken, and meds were initiated. 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 Blood sugars and blood pressures were monitored and managed medically. The patient transiently required BiPAP on arrival. He was counseled again regarding appropriate diet for his diabetes and nephropathy and hyperkalemia and he was re-educated regarding the need for appropriate fluid restriction. He was advised regarding appropriate parameters for blood pressure and blood sugars and hemoglobin A1c, and was counseled on how to achieve and maintain these and he expressed comprehension. Admission white count 7.16, hemoglobin 11.2, platelet count 261,000. Hepatitis B antigen and antibodies were negative. Admission potassium 5.9, sodium 127, glucose 720, alk phos 227. Cardiac enzymes negative for WI on arrival. Natriuretic peptide 1233.5, ordered by ER. The patient transiently after arrival was administered insulin drip and thereafter was well controlled on diet and subcutaneous insulin here. He was dialyzed on the final hospital day. See also report of fistulogram done on September 03 when report is available. By verbal report, fistula was clear. Admission chest x-ray with fluid overload, cardiomegaly, mild. Echocardiogram, LVH mild. Ejection fraction 60%. Normal LV function. Paradoxical dyssynergic septal motion consistent with postoperative status. Diastolic filling pattern indicates impaired relaxation. FINAL IMPRESSIONS: As above. 1. End-stage renal failure with fluid overload and hyperkalemia on arrival. 2. Diabetic nephropathy. 3. Type 2 diabetes mellitus with diabetic retinopathy and neuropathy and suspected gastropathy. 4. Depression. 5. Primary hypertension. 6. Coronary artery disease. The patient will continue new medicine per his psychiatrist, Dr. Romero, sertraline (Zoloft) 50 mg daily with close followup recommended on an outpatient basis to Dr. Romero. He will resume home medical regimen for blood pressure and diabetes and he was counseled regarding the need to initiate prescribed diet for hyperkalemia, renal failure, fluid restriction, and diabetes mellitus. He was asked to follow up closely within a week. Patient has had multiple recent admissions and readmissions and has had difficulty with compliance, and prognosis is guarded. LUCRETIA SILVER MD Job#: [id number]
--- NOTE | 2017-09-07 10:28 | Diagnostic Imaging Report ---
Date and Time: 09/03/2017 Procedure: Left upper extremity arteriovenous fistulogram strap cutting machine operator: Fauzia Pre-operative diagnosis: Elevated potassium despite hemodialysis, concern for suboptimal fistula function Post-operative diagnosis: Normal arteriovenous fistula Conscious Sedation: Versed 0.5 mg and Fentanyl 25 mcg. The patient's heart rate and pulse oximetry were continuously monitored by the interventional radiology nurse. Blood pressure was monitored at 5 minute intervals. Additional Medications: Lidocaine 1% for local anesthesia Fluoroscopy time: 1.1 minute Dose-area Product: 577 cGycm2. Contrast used: 60 cc Isovue-300 Estimated blood loss: Minimal Specimens: None Implants: None Blood products administered: None Condition at completion of procedure: Stable Disposition: Returned to floor unit DISCUSSION: Informed consent for the procedure was obtained from the patient and documented in the medical record. Patient was placed in the supine position on the angiographic table with the left arm pronated and abducted. The left antecubital fossa was prepped and draped in standard sterile fashion. Preliminary sonographic evaluation of the arteriovenous fistula showed a widely patent arteriovenous anastomosis and perianastomotic segment of venous outflow. A suitable percutaneous approach to the peripheral outflow limb of the fistula was identified and 1% lidocaine was infiltrated into the skin and subcutaneous tissues for local anesthesia. Then under ultrasound guidance, a 21-gauge micropuncture needle was used to access the outflow cephalic vein. A 0.0 1 8-in. wire was advanced centrally under fluoroscopic guidance. The needle was then exchanged for a 5 [place]yan micropuncture sheath. Digital subtraction angiography of the cephalic venous outflow was then performed from the anastomosis to the superior vena cava. Reflux venography was then performed with visualization of the perianastomotic segment of the venous outflow. At the conclusion of the procedure the micropuncture sheath was removed and hemostasis was achieved with gentle manual compression. The patient tolerated the procedure well without immediate complication. A strong perianastomotic thrill was noted upon completion of the examination. FINDINGS: Brachiocephalic arteriovenous fistula with widely patent cephalic venous outflow from the anastomosis to the level of the cephalic arch. Widely patent left subclavian vein, left brachiocephalic vein, and superior vena cava, without central stenosis . IMPRESSION: Normal left upper extremity brachiocephalic fistulagram. Signed by: Dr. Max Cage M.D. on 09/06/2017 7:36 AM
== END 2017-09-03 22:55 | disposition home or self-care (01) | DRG 291 ==
LOC: ER 00:47 → ERHOLD 01:46 → IMCU 20:22
PROVIDERS: ADMIT Internal Medicine; ATTEND Internal Medicine
PROC: 5A1D70Z Performance of Urinary Filtration, Intermittent, Less than 6 Hours Per Day (ICD-10-PCS; 2017-08-30)
PROC: 5A1D70Z Performance of Urinary Filtration, Intermittent, Less than 6 Hours Per Day (ICD-10-PCS; 2017-08-31)
PROC: 5A1D70Z Performance of Urinary Filtration, Intermittent, Less than 6 Hours Per Day (ICD-10-PCS; 2017-09-01)
PROC: 5A1D70Z Performance of Urinary Filtration, Intermittent, Less than 6 Hours Per Day (ICD-10-PCS; principal; 2017-09-03)
PROC: B51W1ZZ Fluoroscopy of Dialysis Shunt/Fistula using Low Osmolar Contrast (ICD-10-PCS; 2017-09-03)
DX: I13.2 Hypertensive heart and chronic kidney disease with heart failure and with stage 5 chronic kidney disease, or end stage renal disease (principal); N18.6 End stage renal disease; E86.0 Dehydration; E11.22 Type 2 diabetes mellitus with diabetic chronic kidney disease; I50.31 Acute diastolic (congestive) heart failure; F33.1 Major depressive disorder, recurrent, moderate; E87.5 Hyperkalemia; R06.03 Acute respiratory distress; Z99.2 Dependence on renal dialysis; I25.10 Atherosclerotic heart disease of native coronary artery without angina pectoris; Z95.1 Presence of aortocoronary bypass graft; D63.1 Anemia in chronic kidney disease; M89.9 Disorder of bone, unspecified; E21.3 Hyperparathyroidism, unspecified; E11.319 Type 2 diabetes mellitus with unspecified diabetic retinopathy without macular edema; K31.9 Disease of stomach and duodenum, unspecified; Z91.14 Patient's other noncompliance with medication regimen; E11.65 Type 2 diabetes mellitus with hyperglycemia; Z79.4 Long term (current) use of insulin
CPT/HCPCS: 36415; 71045; 74470; 76080; 77002; 80048; 80053; 82550; 82553; 82948; 83880; 84484; 85025; 86704; 86706; 87340; 90962; 93005; 93306; 94660; 96372; 99284; C1769; J1940; J2001; J2250; J2405; J7030; J7040

== ENCOUNTER 2017-12-07 17:57 | Inpatient (IN) | payer MEDICARE ==
[~2017-12-07] VITALS: Ht 167.6 cm; Wt 85.7 kg
[~2017-12-07 17:57] MED LIST changes: +CLONIDINE HCL0.1 MG PO; +ZOLOFT50 MG PO
[2017-12-07 18:54] LABS: BASOPHILS # (AUTO) 0.1 (0.0-0.1); BASOPHILS % 0.8 % (0.0-1.0); EOSINOPHILS # (AUTO) 0.2 (0.0-0.4); EOSINOPHILS % 2.9 % (0.0-6.0); HEMATOCRIT 29.2 % (38.2-49.6); HEMOGLOBIN 9.8 g/dL (14.0-18.0); LYMPHOCYTES # (AUTO) 1.5 (1.0-3.2); LYMPHOCYTES % 21.2 % (18.0-39.1); MEAN CORPUSCULAR HEMOGLOBIN 31.4 pg (28-32); MEAN CORPUSCULAR HGB CONC 33.6 g/dL (31-35); MEAN CORPUSCULAR VOLUME 93.6 fL (81-99); MONOCYTES # (AUTO) 0.8 (0.2-0.8); MONOCYTES % 10.9 % (4.4-11.3); NEUTROPHILS # (AUTO) 4.6 (2.1-6.9); NEUTROPHILS % 63.8 % (38.7-80.0); PLATELET COUNT 310 x10e3/uL (140-360); RED BLOOD COUNT 3.12 x10e6/uL (4.3-5.7); RED CELL DISTRIBUTION WIDTH 15.3 % (11.7-14.4)
--- NOTE | 2017-12-07 19:01 | History and Physical ---
CHIEF COMPLAINT: One week of bitemporal headaches, severe, throbbing pain. No new ophthalmological symptoms although the patient has chronic very poor vision secondary to diabetic retinopathy. Patient was advised 3 months ago by his instructor programmable controllers that he needed to follow up injections and possible other therapy for diabetic retinopathy, which the patient declined. He has been seeing a Dr. Odom, instructor programmable controllers 3 months ago and the patient has declined followup there since that time. Mr. Hoang has a long history of diabetes mellitus type 2, uncontrolled. He experienced secondary end-stage renal disease and is on hemodialysis each Wednesday, Wednesday and Wednesday and the patient has a left upper extremity AV fistula. Diabetic complications also include neuropathy and gastropathy and peripheral vascular disease. The medical illnesses include primary hypertension with left ventricular hypertrophy. Hyperlipoproteinemia. Last measured LDL January 20, 2017 at 36. The patient has history of coronary disease and required coronary artery bypass in 2016. Echocardiogram August 31, 2017 revealed impaired left ventricular relaxation. History includes depression and anxiety. The patient was seen by a psychiatric fashion consultant selling here previously. See prior visits. History includes esophagitis and gastritis. Again the patient notes today bilateral temporal throbbing headaches of one week's duration. No meningismus. He has seen his dentist this morning and was advised he needed multiple extractions. Surgeries have also included right foot incision and drainage. Surgery to the right eye. Left upper extremity AV fistula. January 27, 2017 EGD and colonoscopy. In 2016 coronary artery bypass. In February 2017 cholecystectomy. Appendectomy. ALLERGIES: PATIENT DENIES ALLERGY TO DRUGS. HE STATES HE IS ALLERGIC TO ADHESIVE TAPE AND LATEX. FAMILY HISTORY: Per the patient, diabetes. See also multiple prior visits here. Head CT 08/01/16 without acute abnormality. This study was done in [place]. Course has been complicated by chronic overweight status. The patient did see a neurologist here previously. See prior notes. PHYSICAL EXAMINATION VITAL SIGNS: The height 5 feet 6. Blood pressure not audible. The patient states his blood pressure was normal at dialysis yesterday. By palpation blood pressure is 98 in the right upper extremity. Pulse is 82 and regular. Respiratory rate 16. Temperature 99.6. HEENT: Pupils bilaterally 1.5 mm polar reacts. Vision poor bilaterally. Throat clear. Bilateral temporal tenderness. NECK: Neck supple. Carotids palpable. Oral tenderness. PULMONARY: Auscultation clear. CARDIAC: S1-2 normal. Sternal scar. Bruit. EXTREMITIES: AV fistula in the left upper extremity. Dampened, although present pulses. Sensation trace reduced in the lower extremities. No foot ulcers. DTRs depressed. Babinski negative. Strength fair. ABDOMEN: Soft. Bowel sounds normal. Old scars. CURRENT IMPRESSION: 1. Throbbing bilateral temporal headache of one week's duration, uncontrolled at home on medications including high-dose ibuprofen. 2. Type 2 diabetes mellitus. 3. Peripheral vascular disease. 4. Nephropathy. 5. End-stage renal disease. 6. Chronic hemodialysis. 7. Neuropathy. 8. Primary hypertension. 9. Left ventricular hypertrophy. 10. Hyperlipoproteinemia. 11. Coronary artery disease. 12. Coronary bypass last year. 13. Impaired LV relaxation on echo here, August 31, 2017. 14. Depression and anxiety with prior psychiatric consultation here. See prior visit. Patient has been on Zoloft. 15. Esophagitis, gastritis. 16. Suspected diabetic gastroparesis. Dialysis schedule has been on Wednesday, Wednesday and Wednesday. The patient will need dialysis Wednesday, Wednesday and Wednesday. Has been seeing a dentist regarding the need for multiple extractions. He saw a dentist this morning. CURRENT PLANS: Control patient's blood pressure and pain. Reassess etiology of severe headache of one week's duration. Ideally with be followed up by his consultants in nephrology regarding continuation of hemodialysis. Recommend neuro and ophthalmological input. See also home med list, which includes statins, multiple antihypertensives, gabapentin and insulin. Oswald. Protein pump inhibitors. Zoloft. Job#: [id number]
[2017-12-07 19:10] LABS: ALBUMIN 3.7 g/dL (3.5-5.0); ALBUMIN/GLOBULIN RATIO 0.8 (0.8-2.0); ANION GAP 21.1 mmol/L (8-16); CALCIUM 10.5 mg/dL (8.4-10.2); CREATININE, SERUM 8.54 mg/dL (0.72-1.25); MAGNESIUM 2.1 MG/DL (1.3-2.1); PHOSPHORUS 6.6 MG/DL (2.3-4.7)
[2017-12-07 19:13] LABS: POTASSIUM 6.1 mmol/L (3.5-5.1)
[2017-12-07 19:16] LABS: CREATINE KINASE MB 3.6 ng/mL (0-5.0)
--- NOTE | 2017-12-07 19:32 | Diagnostic Imaging Report ---
Exam: Head CT without contrast History: Headache Comparison studies: Head CT 01/24/2017 and 01/11/2017 Technique: Axial images were obtained from the skull base to the vertex. Coronal and sagittal images reconstructed from the axial data. Intravenous contrast: None Findings: Scalp: No significant abnormalities. Incidental retained punctate metallic foreign body in the midline frontal scalp soft tissues. Bones: No fractures, blastic or lytic lesions. Brain sulci: Appropriate for age. Ventricles: Normal in size and configuration. No hydrocephalus. Extra-axial spaces: No masses, no fluid collection. Parenchyma: No abnormal densities. No masses, hemorrhage, acute or chronic vascular insults. Sellar/suprasellar region: No abnormalities. Craniocervical junction: Patent foramen magnum. No Chiari one malformation. Incidental findings: Atherosclerotic calcifications in the carotid siphons, right internal carotid artery near the skull base and in the right intradural vertebral artery. Additional scattered vascular calcifications in the scalp. These findings can be seen in patients with ESRD. IMPRESSION: No acute intracranial abnormalities. Signed by: Dr. Max Santizo M.D. on 12/07/2017 7:29 PM
[2017-12-07] MEDS ORDERED: CALCIUM CHLORIDE 10% 1.36 MEQ/ML 10ML SYR IV STA (20:03)
[2017-12-07] MEDS ORDERED: SODIUM BICARBONATE 8.4% INJ 50 ML SYR IV STA (20:03)
[2017-12-07] MEDS ORDERED: FUROSEMIDE INJ 10 MG/ML 4 ML VIAL IV ONE (20:15)
[2017-12-07] MEDS ORDERED: HYDROCODONE/APAP 5MG-325MG TAB PO ONE (20:15)
[2017-12-07] MEDS ORDERED: METHYLPREDNISOLONE SOD SUCC 125 MG/2ML VIAL IV ONE (20:15)
[2017-12-07] MEDS ORDERED: SOD POLYSTYRENE SULFONATE SUSP 15 GM/60 ML BTL PO ONE (20:15)
[2017-12-07] MEDS ORDERED: INSULIN REGULAR, HUMAN 100 UNIT/1 ML 3ML VIAL IV ONE (20:15)
[2017-12-07] MEDS ORDERED: DEXTROSE 50% SYRINGE 50 ML IV ONE (20:15)
[2017-12-07] MEDS ORDERED: SODIUM CHLORIDE 0.9% 50ML 50 ML ONE (20:27)
[2017-12-07] MEDS ORDERED: SODIUM CHLORIDE FLUSH 10 ML SYR INJ PRN (20:30)
[2017-12-07] MEDS ORDERED: HYDRALAZINE HCL 20 MG/ML VIAL IV PRN (20:30)
[2017-12-07] MEDS ORDERED: ONDANSETRON HCL INJ 2 MG/ML VIAL IV PRN (20:30)
[2017-12-07] MEDS ORDERED: DEXTROSE 50% SYRINGE 50 ML IV PRN (20:30)
[2017-12-07] MEDS ORDERED: INSULIN REGULAR, HUMAN 100 UNIT/1 ML 3ML VIAL SQ SCH (21:00)
[2017-12-07 21:33] VITALS: BP 166/79
[2017-12-07] MEDS ORDERED: ACETAMINOPHEN 325 MG TAB PO PRN (22:15)
[2017-12-07 22:23] VITALS: BP 166/79
[2017-12-07 22:26] VITALS: BP 166/79
[2017-12-07] MEDS ORDERED: CALCIUM ACETAT667 M1 PO (22:52)
[2017-12-07] MEDS ORDERED: GABAPENTIN100 MG PO (22:55)
[2017-12-08] VITALS: BP 154/72
[2017-12-08 04:27] VITALS: BP 143/67
[2017-12-08] MEDS ORDERED: DEXTROSE 50% SYRINGE 50 ML IV PRN (06:30)
[2017-12-08] MEDS: INSULIN REGULAR, HUMAN 100 UNIT/1 ML 3ML VIAL SQ SCH ×4 (06:33→18:42)
[2017-12-08 07:03] LABS: BASOPHILS % 0.3 % (0.0-1.0); HEMATOCRIT 30.1 % (38.2-49.6); HEMOGLOBIN 10.2 g/dL (14.0-18.0); LYMPHOCYTES # (AUTO) 0.4 (1.0-3.2); MEAN CORPUSCULAR HEMOGLOBIN 31.4 pg (28-32); MEAN CORPUSCULAR HGB CONC 33.9 g/dL (31-35); MEAN CORPUSCULAR VOLUME 92.6 fL (81-99); MONOCYTES % 0.5 % (4.4-11.3); NEUTROPHILS # (AUTO) 5.3 (2.1-6.9); NEUTROPHILS % 91.9 % (38.7-80.0); PLATELET COUNT 278 x10e3/uL (140-360); RED BLOOD COUNT 3.25 x10e6/uL (4.3-5.7); RED CELL DISTRIBUTION WIDTH 14.7 % (11.7-14.4)
[2017-12-08 07:28] LABS: ALBUMIN 3.6 g/dL (3.5-5.0); ALBUMIN/GLOBULIN RATIO 0.8 (0.8-2.0); ANION GAP 23.9 mmol/L (8-16); CALCIUM 10.4 mg/dL (8.4-10.2); CREATININE, SERUM 9.45 mg/dL (0.72-1.25); POTASSIUM 5.9 mmol/L (3.5-5.1)
[2017-12-08] MEDS ORDERED: INSULIN REGULAR, HUMAN 100 UNIT/1 ML 3ML VIAL SQ SCH (07:30)
[2017-12-08] MEDS ORDERED: SOD POLYSTYRENE SULFONATE SUSP 15 GM/60 ML BTL PO ONE (08:00)
[2017-12-08 08:17] VITALS: BP 193/85
[2017-12-08] MEDS: INSULIN DETEMIR 100 UNIT/ML PEN SQ SCH (08:20)
[2017-12-08] MEDS ORDERED: INSULIN DETEMIR U SC SCH (09:00)
[2017-12-08] MEDS ORDERED: SODIUM CHLORIDE 0.9% 1000ML 2,000 ML ONE (09:49)
--- NOTE | 2017-12-08 10:46 | Consultation ---
DATE OF CONSULTATION: NEPHROLOGY CONSULTATION REASON FOR CONSULTATION: HD management. HPI: This is a 47-year-old male known to my service with a history of CABG last year in 2017, ESRD, on HD, diabetic retinopathy, neuropathy, and also has cataracts in which he is supposed to follow up with an pack mule worker, who comes into the ED with complaints of bitemporal headache ongoing for the last 1 week. He reports that he has been having severe throbbing pain uncontrollably, and has decreased oral intake. Denies any nausea. He did report 1 episode of vomiting. Had a couple bouts of diarrhea. Denies any chest pain or palpitations. Denies any fever at home. The patient was seen and evaluated at bedside on the medical floor. Currently, doing well with no other issues. In relation to his dialysis, he reports that he did eat some tomatoes leading to his elevated potassium level. REVIEW OF SYSTEMS: Pertinent positives are bilateral temporal headache throbbing and vomiting. Pertinent negatives are denies any chest pain, palpitations, nausea, diarrhea, dysuria, hematuria, frequency, urgency, lightheadedness, dizziness, abdominal pain, shortness of breath, fever, cough, congestion, or any other complaints. The rest of the 14-point review of systems have been reviewed with the patient and are negative. ALLERGIES: DENIES ANY ALLERGIES TO DRUGS, BUT DOES HAVE AN ALLERGY TO TAPE AND LATEX. HOME MEDICATIONS 1. Aspirin 81 mg daily. 2. Lipitor 20 mg daily. 3. Calcitriol 0.25 mcg daily. 4. PhosLo 667 mg daily. 5. Clonidine 0.1 mg every 6 hours as needed for elevated blood pressure. 6. Furosemide 40 mg daily. 7. Levemir 25 units subcutaneous in the morning and 20 units at night. 8. Lisinopril 20 mg daily. 9. Reglan 10 mg p.o. t.i.d. 10. Metoprolol 50 mg p.o. b.i.d. 11. Nifedipine XR 90 mg daily. 12. Protonix 40 mg daily. 13. Sertraline 50 mg daily. 14. Renvela 800 mg daily. PAST MEDICAL HISTORY: He has ESRD, on HD on Wednesday, Wednesday and Wednesday, history of CABG, coronary artery disease, diabetes, retinopathy, neuropathy, hypertension. SURGICAL HISTORY: He had surgery to the right eye, left upper extremity AV fistula. He also had colonoscopies. In 2017, had a CABG. Cholecystectomy and appendectomy. FAMILY HISTORY: Hypertension and diabetes. SOCIAL HISTORY: Denies drugs and alcohol. Does not smoke. Good social support. Currently, not working. PHYSICAL EXAMINATION VITAL SIGNS: Temperature is 97, pulse 89, respiratory rate 20, blood pressure 193/85, pulse ox 98% on room air. GENERAL: Not in acute distress. Alert and oriented times 3. Cooperative on exam. HEENT: Head is normocephalic and atraumatic. Eyes: Pupils equal, round and reactive to light bilaterally. Extraocular movements intact bilaterally. NECK: Supple. Good range of motion. Throat with no evidence of any erythema or exudate in the posterior pharynx. Has poor dentition. PULMONARY: Clear to auscultation bilaterally. No wheezing. No rales. No rhonchi. No carotid bruits appreciated. CARDIOVASCULAR: Positive S1 and S2. No murmurs, rubs or gallops appreciated. ABDOMEN: Soft, nondistended and nontender to palpation. Bowel sounds present. MUSCULOSKELETAL: Strength is 5/5 throughout. No evidence of any muscle weakness or . No weakness appreciated. NEUROLOGICAL: Cranial nerves II-XII grossly intact. No evidence of any neurological deficit on exam. SKIN: Intact. Warm to touch. Good capillary refill. PSYCHIATRIC: Normal affect and mood. EXTREMITIES: No edema. Good range of motion throughout. LAB FINDINGS: Show a white count of 5.7, hemoglobin 10.2, hematocrit 30, and platelets of 278,000. Chemistry: Sodium 133, potassium 5.9, chloride 90, bicarb 25, anion gap of 23, BUN 86, creatinine 9.4. His glucose is 453. Calcium 10.4. Alkaline phosphatase 155, total protein 8.4, albumin 3.6. Hepatitis B panel pending. MICROBIOLOGY: None. IMAGING STUDIES: CT of brain shows no acute intracranial abnormality. IMPRESSION 1. End-stage renal disease: On hemodialysis with left upper extremity arteriovenous fistula and Wednesday, Wednesday and Wednesday schedule. 2. 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 3. Anemia of end-stage renal disease. 4. Bitemporal headaches. PLAN: At this time, the patient has hyperkalemia. Will perform dialysis now. Blood flow rate 350 mL per minute, dialysate flow rate of 700 mL per minute, 2K bath, 2.5 calcium, duration 3.5 hours. Ultrafiltration 2 L as the patient clinically looks dry. Put on phos binders. Renal diet. Currently, his hemoglobin is 10.2. Will repeat labs in the morning. Monitor very closely. Currently, he is stable. May need dialysis likely on his next schedule on Wednesday. Job#: [id number] CHERYL
[2017-12-08] MEDS ORDERED: METHYLPREDNISOLONE SOD SUCC 125 MG/2ML VIAL IV ONE ×2 (11:00→14:30)
[2017-12-08 12:00] VITALS: BP 173/95
--- NOTE | 2017-12-08 13:35 | Consultation ---
DATE OF CONSULTATION: December 08, 2017 REFERRING PHYSICIAN: Min Casillas MD HISTORY OF PRESENT ILLNESS: The patient is a 47-year-old male with multiple medical problems including hypertension, hyperlipidemia, end-stage renal disease on hemodialysis, who was admitted to the hospital with bilateral temporal headaches and also found to have elevated erythrocyte sedimentation rate. There was concern the patient may have temporal arteritis. PAST MEDICAL HISTORY: Significant for hypertension, diabetes, end-stage renal disease, hyperlipidemia. PREVIOUS SURGERIES: I and D of abscess on the foot, right eye surgery, cholecystectomy, AV fistula, appendectomy. ALLERGIES: HE HAS ALLERGY TO LATEX. FAMILY HISTORY: Significant for diabetes. SOCIAL HISTORY: The patient does not smoke cigarettes or drink alcohol. REVIEW OF SYSTEMS: Limited, but as above. He complains of some visual disturbance in the left eye as well as bilateral temporal headaches. PHYSICAL EXAMINATION GENERAL: The patient is awake and alert. VITALS: Normal. HEENT: Temporal pulses are palpable bilaterally. There is tenderness in the roman catholic areas bilaterally. NECK: No masses. LUNGS: Equal breath sounds are clear. CARDIAC: Regular rate and rhythm with a sternotomy wound. EXTREMITIES: AV fistula in the left arm, which is currently being used for dialysis. There is no edema. ABDOMEN: Nontender. ASSESSMENT: A 47-year-old male with bilateral temporal headaches with elevated erythrocyte sedimentation rate. There is concern for temporal arteritis. PLAN: Temporal artery biopsy to be done tomorrow. Procedure was explained to the patient. Thank you asking see me to see Mr. Hoang. Job#: [id number]
[2017-12-08] MEDS: METOCLOPRAMIDE HCL 10 MG TAB PO SCH ×2 (14:43→22:39)
[2017-12-08] MEDS: GABAPENTIN 100 MG CAP PO SCH ×2 (14:43→22:38)
[2017-12-08] MEDS: HYDROCODONE/APAP 5MG-325MG TAB PO PRN (14:44)
[2017-12-08] MEDS: METOPROLOL TARTRATE 25 MG TAB PO SCH (14:44)
[2017-12-08 16:47] VITALS: BP 188/101
[2017-12-08] MEDS: NIFEDIPINE CR 30 MG TAB PO SCH (17:03)
[2017-12-08] MEDS: CLONIDINE HCL 0.1 MG TAB PO PRN (18:34)
[2017-12-08 20:00] VITALS: BP 182/84
[2017-12-08] MEDS ORDERED: LISINOPRIL 10 MG TAB PO ONE (21:00)
[2017-12-08] MEDS ORDERED: NON-FORMULARY MEDICATION (Insulin Detemir (Levemir) 20 U) SC SCH (21:00)
[2017-12-08] MEDS: ATORVASTATIN 20 MG TAB PO SCH (22:38)
[2017-12-09] VITALS: BP 154/76
[2017-12-09] MEDS: INSULIN REGULAR, HUMAN 100 UNIT/1 ML 3ML VIAL SQ SCH ×7 (02:00→22:00)
[2017-12-09] MEDS: INSULIN DETEMIR 100 UNIT/ML PEN SQ SCH ×3 (04:19→21:00)
[2017-12-09] MEDS ORDERED: SODIUM CHLORIDE 0.9% 500ML 500 ML ONE (07:46)
[2017-12-09 07:56] VITALS: BP 160/77
[2017-12-09] MEDS ORDERED: BUPIVACAINE 0.25% 30ML SDV INJ ONE (07:56)
[2017-12-09] MEDS ORDERED: NIFEDIPINE CR 30 MG TAB PO SCH (09:00)
[2017-12-09] MEDS: GABAPENTIN 100 MG CAP PO SCH ×3 (09:00→22:00)
[2017-12-09] MEDS: SERTRALINE HCL 50 MG TAB PO SCH (09:00)
[2017-12-09] MEDS: METOCLOPRAMIDE HCL 10 MG TAB PO SCH ×3 (09:00→22:00)
[2017-12-09] MEDS: SEVELAMER CARBONATE 800 MG TAB PO SCH (09:00)
[2017-12-09] MEDS: ASPIRIN 81 MG CHEW TAB PO SCH (09:00)
[2017-12-09] MEDS: PANTOPRAZOLE SOD 40 MG TABEC PO SCH (09:00)
[2017-12-09] MEDS: FUROSEMIDE 40 MG TAB PO SCH (09:00)
[2017-12-09] MEDS ORDERED: HYDROMORPHONE 1MG/1ML INJ ONE (10:17)
--- NOTE | 2017-12-09 10:40 | Operative Report ---
DATE OF PROCEDURE: December 09, 2017 PREOPERATIVE DIAGNOSIS: Headache, rule out temporal arteritis. POSTOPERATIVE DIAGNOSIS: Headache, rule out temporal arthritis. PROCEDURE: Left temporal artery biopsy. BUSINESS INTELLIGENCE DIRECTOR: None. ANESTHESIA: General. INDICATIONS AND FINDINGS: Patient is a 47-year-old male admitted with complaints of severe bilateral temporal headaches. Found to have elevated erythrocyte sedimentation rate. At surgery, about 2.5-cm segment of the left superficial temporal artery was excised. It appeared to have some atherosclerotic changes, but also was thickened. TECHNIQUE: After adequate general anesthesia with the patient in the supine position, the left temporal area was prepped and draped in a sterile fashion with Betadine solution. Incision made over the course of the superficial temporal artery. It was carried down through subcutaneous tissue and the artery was identified. It was dissected free from surrounding tissues. It appeared thickened and also with some atherosclerotic changes. About 2.5-cm segment of the artery was excised. The cut ends were ligated with 3-0 Vicryl. The wound was then infiltrated with 0.5% Marcaine. The wound was closed with 3-0 Vicryl on subcutaneous tissue and 4-0 Vicryl subcuticular to the skin. Dermabond was applied to the wound with a sterile dressing. Patient tolerated the procedure well. Estimated blood loss was less than 5 mL. There were no complications. All counts were correct. Patient was taken to the recovery room in satisfactory condition. Job#: [id number] RI cc:LUCRETIA SILVER MD
[2017-12-09] MEDS: HYDROCODONE/APAP 5MG-325MG TAB PO PRN ×3 (11:18→22:34)
[2017-12-09 12:23] VITALS: BP 177/89
[2017-12-09] MEDS ORDERED: PREDNISONE 20 MG TAB PO NR (12:30)
[2017-12-09] MEDS: METOPROLOL TARTRATE 25 MG TAB PO SCH ×2 (12:56→17:13)
[2017-12-09] MEDS: LISINOPRIL 10 MG TAB PO SCH (12:56)
[2017-12-09] MEDS: NIFEDIPINE CR 30 MG TAB PO SCH (12:56)
[2017-12-09] MEDS ORDERED: MIDAZOLAM HCL 2 MG/2 ML VIAL ONE (16:44)
[2017-12-09] MEDS ORDERED: FENTANYL CITRATE/PF 100MCG/2 ML INJ ONE (16:44)
[2017-12-09] MEDS: CLONIDINE HCL 0.1 MG TAB PO PRN (17:13)
[2017-12-09 17:59] VITALS: BP 186/89
[2017-12-09] MEDS ORDERED: CEFAZOLIN SOD 1 GM VIAL ONE (18:28)
[2017-12-09] MEDS ORDERED: PROPOFOL IV EMULSION 10 MG/ML 20 ML VIAL ONE (18:28)
[2017-12-09] MEDS ORDERED: SEVOFLURANE INHAL SOLN 250 ML PEN BTL ONE (18:28)
[2017-12-09] MEDS ORDERED: ONDANSETRON HCL INJ 2 MG/ML VIAL ONE (18:28)
[2017-12-09] MEDS ORDERED: LIDOCAINE HCL 2% LOCAL INJ 5 ML SDV VIAL INJ ONE (18:28)
[2017-12-09] MEDS ORDERED: DEXAMETHASONE SOD PHOS INJ 4 MG/ML VIAL ONE (18:28)
[2017-12-09 20:00] VITALS: BP 155/76
[2017-12-09] MEDS: ATORVASTATIN 20 MG TAB PO SCH (22:00)
[2017-12-10] VITALS (8 sets, daily range): BP systolic 152–190; BP diastolic 76–91
[2017-12-10] MEDS: INSULIN REGULAR, HUMAN 100 UNIT/1 ML 3ML VIAL SQ SCH ×6 (02:00→21:55)
[2017-12-10] MEDS: HYDROCODONE/APAP 5MG-325MG TAB PO PRN ×4 (02:56→20:25)
[2017-12-10] MEDS: CLONIDINE HCL 0.1 MG TAB PO PRN ×2 (06:24→17:00)
[2017-12-10 07:35] LABS: ANION GAP 21.2 mmol/L (8-16); CALCIUM 9.3 mg/dL (8.4-10.2); CREATININE, SERUM 8.97 mg/dL (0.72-1.25); POTASSIUM 5.2 mmol/L (3.5-5.1)
[2017-12-10] MEDS ORDERED: SODIUM CHLORIDE 0.9% 1000ML 2,000 ML ONE (08:46)
[2017-12-10] MEDS: METOPROLOL TARTRATE 25 MG TAB PO SCH ×2 (09:00→17:00)
[2017-12-10] MEDS: LISINOPRIL 10 MG TAB PO SCH ×2 (09:00→14:58)
[2017-12-10] MEDS ORDERED: PREDNISONE 20 MG TAB PO ONE (09:00)
[2017-12-10] MEDS: FUROSEMIDE 40 MG TAB PO SCH (09:00)
[2017-12-10] MEDS: NIFEDIPINE CR 30 MG TAB PO SCH ×2 (09:00→14:58)
[2017-12-10] MEDS: METOCLOPRAMIDE HCL 10 MG TAB PO SCH ×3 (09:09→20:30)
[2017-12-10] MEDS: ASPIRIN 81 MG CHEW TAB PO SCH (09:09)
[2017-12-10] MEDS: GABAPENTIN 100 MG CAP PO SCH ×3 (09:09→20:30)
[2017-12-10] MEDS: SEVELAMER CARBONATE 800 MG TAB PO SCH (09:10)
[2017-12-10] MEDS: SERTRALINE HCL 50 MG TAB PO SCH (09:10)
[2017-12-10] MEDS: PANTOPRAZOLE SOD 40 MG TABEC PO SCH (09:10)
[2017-12-10] MEDS: INSULIN DETEMIR 100 UNIT/ML PEN SQ SCH ×2 (09:40→21:00)
[2017-12-10] MEDS ORDERED: PREDNISONE 10 MG TAB PO ONE (12:30)
[2017-12-10] MEDS ORDERED: PREDNISONE 20 MG TAB PO NR (12:30)
--- NOTE | 2017-12-10 14:25 | Consultation ---
DATE OF CONSULTATION: December 08, 2017, at 5 p.m. NEUROLOGICAL CONSULTATION A patient of Dr. Min Casillas. REASON FOR CONSULTATION: Diagnosis of giant cell arteritis. HISTORY OF PRESENT ILLNESS: This is a 47-year-old male with multiple medical problems who has been, in the last 2 weeks, complaining of bilateral temporal headaches pounding not associated with jaw claudication, complains of blurry vision but he has very poor vision for a long time because of diabetic retinopathy. The patient denies any fatigue. PAST HISTORY: He has history of uncontrolled hypertension, uncontrolled diabetes mellitus type 2, end-stage renal failure, left ventricular hypertrophy, peripheral vascular disease, left AV fistula for the dialysis. ALLERGIES: NO KNOWN ALLERGIES. ONLY ALLERGY HE MENTIONS IS ADHESIVE TAPE AND LATEX. FAMILY HISTORY: Strong history of diabetes. PAST SURGICAL HISTORY: He has history of left AV fistula for dialysis. He has had colonoscopy, EGD, cholecystectomy, appendectomy. REVIEW OF SYSTEMS: Noncontributory. PHYSICAL EXAMINATION VITAL SIGNS: Blood pressure 186/89, pulse 75, afebrile. LUNGS: Clear to auscultation. HEART: Regular sinus rhythm. No murmur. ABDOMEN: No organomegaly, nontender. MUSCULOSKELETAL: Lower extremities have no edema, cyanosis, or clubbing. NEUROLOGICAL EXAMINATION MENTAL STATUS: He is in no acute distress. He is alert, he is oriented x3. SPEECH: Clear. No dysarthria or dysphagia. CRANIAL NERVES: Pupils are small. They are slowly reactive. Extraocular movements were full. Visual morton are normal. Very poor vision bilaterally (chronic) secondary to diabetic retinopathy. No facial weakness. Tongue protrudes midline. There is tenderness to pressure both temples with the superficial temporal arteries. No jaw claudication complaint. MOTOR POWER: Upper and lower extremities show no evidence of gross weakness in any proximal or distal muscles. Plantar stimulation down bilaterally. DEEP TENDON REFLEXES: Triceps, biceps and radials are 1+. Knee jerks and ankle jerks absent bilaterally. Vibration sense is absent up to the ankles. SENSORY: Pinprick shows hypoesthesia in a stocking distribution. HEAD: Normocephalic. NECK: Supple. Carotid pulsations are present bilaterally. There are no bruits. LABORATORY WORK: Has been reviewed. White count shows WBC 5,800 with a hemoglobin of 10.2, hematocrit 8.1, platelets 278,000. Chemistry--sodium 130, which is low; potassium 5.2, BUN 89, creatinine 8.97. Estimated GFR is 6, quite low. Blood sugars have been ranging from [address] scan of the head without contrast shows no acute intracranial abnormalities. IMPRESSION 1. Bilateral headache for the last 2 weeks. He put a scale between 8 and 10. 2. Blurred vision (patient has chronic poor vision secondary to retinopathy. 3. Diabetes mellitus type 2. 4. Hypertension. 5. Peripheral vascular disease. 6. Peripheral neuropathy, diabetic type. 7. End-stage renal failure. The main concern was the possibility of giant cell arteritis because of the severity of the headaches and the elevated erythrocyte sedimentation rate of 84. The patient is scheduled for biopsy of the superficial temporal artery. In the meantime is to continue with the prednisone 50 mg a day until the biopsy. Job#: [id number] BENNY
--- NOTE | 2017-12-10 20:22 | Discharge Summary ---
See also history and physical in ER records. Patient was hospitalized with headache. Temporal bilateral. Chronic poor vision secondary to advanced diabetic retinopathy. See also consultations and as mentioned history and physical. The patient has multiple chronic severe ongoing medical illnesses including chronic hemodialysis required for end-stage diabetic nephropathy. The patient saw his sales solutions associate 3 months ago and was advised to undergo further treatment for his retinopathy, which he has declined. He is on hemodialysis, Wednesday, Wednesday, and Wednesday and has chronic left upper extremity AV fistulas. Diagnoses have included primary hypertension with LVH. Hyperlipoproteinemia. Coronary artery disease with prior bypass 2016. Left ventricular relaxation on echo here August 31 this year. Depression and anxiety. He has seen a psychiatrist here on a previous admission recently. History includes esophagitis and gastritis. The patient's blood sugars and blood pressures were monitored and treated medically. He required intermittent adjustment in treatment. He was treated with steroids. The patient was seen by his lugger and by a neurology residential solar consultant while here, Dr. Ledezma, see notes. See Dr. Penn's operative note regarding temporal artery biopsy. Pathology is pending. See also serial laboratory, imaging studies. EMR was reviewed while here at least daily. Fasting sugars December 09. Today 265. The patient was counseled regarding his changes in insulin while here and asked to continue these regimens, which were effective here. Hemoglobin 10.2, white count 5700, platelets 278,000 on December 08. Transient hyperkalemia improved with dialysis. ER ordered cardiac enzymes, which revealed no evidence of NE. ER ordered natriuretic peptide, which was 1571. Hemoglobin A1c was 7.5. ER requested head CT, which revealed no acute intracranial abnormalities. ASCVD was observed. FINAL IMPRESSIONS: As above. Headaches. Sedimentation rate elevated at 85. Temporal artery biopsy pending. The patient will continue steroids, prednisone 60 mg daily and was asked to return to clinic within 5 days. He will be called when path report is available. Chronic medical problems include diabetes mellitus with peripheral vascular disease, neuropathy, nephropathy, gastropathy, end-stage renal disease on hemodialysis, A1c as above. Primary hypertension. Left ventricular hypertrophy. Hyperlipoproteinemia. Coronary artery disease. Impaired left ventricle relaxation. Depression and anxiety. Esophagitis and gastritis. The patient will continue high-dose sliding scale, is being used here. He will continue his other home meds. He will call or return for any significant difficulty. He was given a prescription for Tylenol No. 3 on the day of admission here. LUCRETIA SILVER MD Job#: [id number] CQ
[2017-12-10] MEDS: ATORVASTATIN 20 MG TAB PO SCH (20:30)
[2017-12-11] MEDS: INSULIN REGULAR, HUMAN 100 UNIT/1 ML 3ML VIAL SQ SCH ×2 (01:13→05:53)
[2017-12-11 04:00] VITALS: BP 170/80
[2017-12-11] MEDS: CLONIDINE HCL 0.1 MG TAB PO PRN (05:05)
[2017-12-11] MEDS: HYDROCODONE/APAP 5MG-325MG TAB PO PRN (05:06)
[2017-12-11] MEDS ORDERED: PREDNISONE 20 MG TAB PO ONE (07:15)
[2017-12-11] MEDS ORDERED: PREDNISONE20 MG PO (07:45)
[2017-12-11 08:00] VITALS: BP 173/86
[2017-12-11 08:40] VITALS: BP 173/86
[2017-12-11] MEDS: FUROSEMIDE 40 MG TAB PO SCH (08:54)
[2017-12-11] MEDS: GABAPENTIN 100 MG CAP PO SCH (08:54)
[2017-12-11] MEDS: INSULIN DETEMIR 100 UNIT/ML PEN SQ SCH (08:54)
[2017-12-11] MEDS: ASPIRIN 81 MG CHEW TAB PO SCH (08:54)
[2017-12-11] MEDS: METOCLOPRAMIDE HCL 10 MG TAB PO SCH (08:54)
[2017-12-11] MEDS: NIFEDIPINE CR 30 MG TAB PO SCH (08:55)
[2017-12-11] MEDS: SERTRALINE HCL 50 MG TAB PO SCH (08:55)
[2017-12-11] MEDS: SEVELAMER CARBONATE 800 MG TAB PO SCH (08:55)
[2017-12-11] MEDS: LISINOPRIL 10 MG TAB PO SCH (08:55)
[2017-12-11] MEDS: PANTOPRAZOLE SOD 40 MG TABEC PO SCH (08:55)
[2017-12-11] MEDS: METOPROLOL TARTRATE 25 MG TAB PO SCH (08:55)
== END 2017-12-11 09:33 | disposition home or self-care (01) | DRG 515 ==
LOC: ER 17:57 → ERHOLD 20:20 → MED/SURG 21:35
PROVIDERS: ADMIT Internal Medicine; ATTEND Internal Medicine
PROC: 03BT0ZX Excision of Left Temporal Artery, Open Approach, Diagnostic (ICD-10-PCS; 2017-12-09)
PROC: 5A1D70Z Performance of Urinary Filtration, Intermittent, Less than 6 Hours Per Day (ICD-10-PCS; 2017-12-09)
PROC: 5A1D70Z Performance of Urinary Filtration, Intermittent, Less than 6 Hours Per Day (ICD-10-PCS; principal; 2017-12-10)
DX: M31.6 Other giant cell arteritis (principal); N18.6 End stage renal disease; I12.0 Hypertensive chronic kidney disease with stage 5 chronic kidney disease or end stage renal disease; E11.319 Type 2 diabetes mellitus with unspecified diabetic retinopathy without macular edema; E11.21 Type 2 diabetes mellitus with diabetic nephropathy; N25.0 Renal osteodystrophy; D63.1 Anemia in chronic kidney disease; R51 Headache; Z99.2 Dependence on renal dialysis; I51.7 Cardiomegaly; E78.5 Hyperlipidemia, unspecified; K20.9 Esophagitis, unspecified; K29.70 Gastritis, unspecified, without bleeding; I25.10 Atherosclerotic heart disease of native coronary artery without angina pectoris; E11.40 Type 2 diabetes mellitus with diabetic neuropathy, unspecified; E11.43 Type 2 diabetes mellitus with diabetic autonomic (poly)neuropathy; E11.51 Type 2 diabetes mellitus with diabetic peripheral angiopathy without gangrene; K31.84 Gastroparesis; F32.9 Major depressive disorder, single episode, unspecified; F41.9 Anxiety disorder, unspecified
CPT/HCPCS: 36415; 70450; 80048; 80053; 82550; 82553; 82948; 83036; 83735; 83880; 84100; 84132; 84484; 85025; 85651; 86704; 86705; 86707; 87340; 88305; 90962; 93005; 96372; 96374; J0690; J1100; J1170; J1940; J2001; J2250; J2405; J2930; J7030; J7040; J7799

== ENCOUNTER 2018-03-09 08:44 | Emergency (ER) | payer MEDICARE ==
[~2018-03-09] VITALS: Ht 167.6 cm; Wt 86.6 kg
[~2018-03-09 08:44] MED LIST changes: +CALCIUM ACETAT667 M1 PO; +GABAPENTIN100 MG PO; +PREDNISONE20 MG PO
[2018-03-09] MEDS ORDERED: FAMOTIDINE 20 MG/2 ML VIAL IV STA (09:08)
[2018-03-09] MEDS ORDERED: ONDANSETRON HCL INJ 2 MG/ML VIAL IV STA (09:08)
[2018-03-09] MEDS ORDERED: TRAMADOL HCL 50 MG TAB PO ONE (09:15)
[2018-03-09] MEDS ORDERED: SODIUM CHLORIDE 0.9% 1000ML 1,000 ML IV ONE (09:15)
[2018-03-09 10:03] LABS: BASOPHILS # (AUTO) 0.1 (0.0-0.1); BASOPHILS % 1.1 % (0.0-1.0); EOSINOPHILS # (AUTO) 0.2 (0.0-0.4); EOSINOPHILS % 1.8 % (0.0-6.0); HEMATOCRIT 45.4 % (38.2-49.6); HEMOGLOBIN 15.1 g/dL (14.0-18.0); LYMPHOCYTES # (AUTO) 0.8 (1.0-3.2); LYMPHOCYTES % 9.2 % (18.0-39.1); MEAN CORPUSCULAR HEMOGLOBIN 29.7 pg (28-32); MEAN CORPUSCULAR HGB CONC 33.3 g/dL (31-35); MEAN CORPUSCULAR VOLUME 89.2 fL (81-99); MONOCYTES # (AUTO) 0.8 (0.2-0.8); MONOCYTES % 9.2 % (4.4-11.3); NEUTROPHILS # (AUTO) 6.7 (2.1-6.9); NEUTROPHILS % 78.2 % (38.7-80.0); PLATELET COUNT 447 x10e3/uL (140-360); RED BLOOD COUNT 5.09 x10e6/uL (4.3-5.7); RED CELL DISTRIBUTION WIDTH 13.9 % (11.7-14.4)
[2018-03-09 10:23] LABS: ALBUMIN 3.4 g/dL (3.5-5.0); ALBUMIN/GLOBULIN RATIO 0.8 (0.8-2.0); ANION GAP 27.1 mmol/L (8-16); CALCIUM 9.6 mg/dL (8.4-10.2); CREATININE, SERUM 10.37 mg/dL (0.72-1.25); POTASSIUM 5.1 mmol/L (3.5-5.1)
--- NOTE | 2018-03-09 11:06 | Diagnostic Imaging Report ---
PROCEDURE:ABDOMEN-1VIEW (KUB) COMPARISON:KUB 05/27/17. INDICATIONS:RIGHT UPPER BACK PAIN FINDINGS: Non-obstructive bowel gas pattern. No evidence of free intraperitoneal air on supine radiograph. Calcifications overlying the pelvis likely represent phleboliths and vascular calcifications. A calcification overlying the left lower abdomen at the L4 level may be within the bowel as it is more lateral than expected for the ureter. Status post cholecystectomy. Partially seen median sternotomy wires. No acute bony findings. CONCLUSION: No acute radiographic abnormality. Status post cholecystectomy Dictated by: BETSY SAINZ M.D. on 03/09/2018 at 11:14 Electronically approved by: BETSY SAINZ M.D. on 03/09/2018 at 11:14
--- NOTE | 2018-03-09 11:08 | Diagnostic Imaging Report ---
PROCEDURE:THORACIC SP 3V COMPARISON:None. INDICATIONS:RIGHT UPPER BACK PAIN FINDINGS: No evidence of fracture or malalignment. Mild degenerative disc changes of the thoracic spine. Status post median sternotomy and cholecystectomy. The superior most median sternotomy wire is fractured, unchanged from radiograph on 08/30/17. Status post CABG. The visualized lungs are clear. CONCLUSION: No acute radiographic abnormality. Dictated by: BETSY SAINZ M.D. on 03/09/2018 at 11:16 Electronically approved by: BETSY SAINZ M.D. on 03/09/2018 at 11:16
[2018-03-09] MEDS ORDERED: METAXALONE 800 MG TAB PO ONE (14:00)
== END 2018-03-09 13:38 | disposition home or self-care (01) ==
LOC: ER 08:44
DX: M54.6 Pain in thoracic spine (principal); M54.14 Radiculopathy, thoracic region; M62.830 Muscle spasm of back
CPT/HCPCS: 36415; 72072; 74018; 80053; 83690; 84484; 85025; 99284; J2405; J7030